=== PATIENT | female | born 1960 | race African-American/Black ===

== ENCOUNTER 2019-10-26 02:47 | Inpatient (IN) | payer MEDICARE, OTHER ==
[~2019-10-26] VITALS: Ht 160 cm; Wt 62.6 kg
[2019-10-26] VITALS (20 sets, daily range): BP systolic 58–176; BP diastolic 47–91
[2019-10-26] MEDS ORDERED: DEXTROSE 50% SYRINGE 50 ML IV STA ×3 (02:48→06:16)
--- OUTSIDE RECORDS SUMMARY | 2019-10-26 02:51 | XMS REPORT ---
[facility] Address Unknown Phone Unavailable Care Team Providers Care Clerical And Administrative Workers Name Role Phone Unavailable Unavailable Payers Payer Name Policy Type Policy Number Effective Date Expiration Date Problems This patient has no known problems. Allergies, Adverse Reactions, Alerts Allergy Name Allergy Type Status Severity Reaction(s) Onset Date Inactive Date Treating Clinician Comments magdi DA Active U 2017-11-30 00:00:00 Medications This patient has no known medications. Results Test Description Test Time Test Comments Text Results Atomic Results Result Comments GLUBED 2019-09-30 12:38:00 GLUBED (test code=GLUBED) 132 MG/DL 70-110 Performed by certified wireline field operator at [facility] [id number] 08:26:00* Test Item Value Reference Range Comments GLUBED (test code=GLUBED) 108 MG/DL 70-110 Performed by certified wireline field operator at [facility] ACUTE HEPATITIS [id number] 07:13:00* Test Item Value Reference Range Comments AB HEPATITIS A IGM (test code=HAVMAB) NON REACTIVE INDEX NON REACT. AG HEPATITIS B SURFACE (test code=HBSAG) NON REACTIVE INDEX NonReactive AB HEPATITIS B CORE IGM (test code=HBCMAB) NON REACTIVE INDEX NON REACT. AB HEPATITIS C (test code=HCVAB) NON REACTIVE INDEX NON REACT. AB HEPATITIS B [id number] 07:13:00* Test Item Value Reference Range Comments AB HEPATITIS B SURFACE (test code=HBSAB) 84.6 mIU/mL Immunity>9.9 Status of Immunity Anti-HBs Level Inconsistent with Immunity 0.0 - 9.9Consistent with Immunity >9.9[facility]formed At: [facility] [place], [place] [id number] Kyle L MD Ph:[phone] [id number] 05:59:00* Test Item Value Reference Range Comments GLUBED (test code=GLUBED) 115 MG/DL 70-110 Performed by certified wireline field operator at [facility] [id number] 00:24:00* Test Item Value Reference Range Comments GLUBED (test code=GLUBED) 146 MG/DL 70-110 Performed by certified wireline field operator at [facility] [id number] 21:35:00* Test Item Value Reference Range Comments GLUBED (test code=GLUBED) 216 MG/DL 70-110 Performed by certified wireline field operator at [facility] [id number] 17:11:00* Test Item Value Reference Range Comments GLUBED (test code=GLUBED) 163 MG/DL 70-110 Performed by certified wireline field operator at [facility] [id number] 15:08:00* Test Item Value Reference Range Comments GLUBED (test code=GLUBED) 137 MG/DL 70-110 Performed by certified wireline field operator at [facility] TOTAL IRON BINDING [id number] 11:57:00* Test Item Value Reference Range Comments SERUM IRON (test code=IRON) 60 mcg/dL 35-150 TOTAL IRON BINDING CAPACITY (test code=TIBC) 158 mcg/dL 260-445 UIBC (test code=UIBC) 98 mcg/dL IRON SATURATION (test code=FESAT) 38.0 % 14-34 VITAMIN [id number] 11:57:00* Test Item Value Reference Range Comments VITAMIN B12 (test code=VITB12) 1705 pg/mL 193-986 [id number] 11:57:00* Test Item Value Reference Range Comments FERRITIN (test code=THOM) 1034.7 ng/mL 11.0-306.8 [id number] 11:44:00* Test Item Value Reference Range Comments GLUBED (test code=GLUBED) 131 MG/DL 70-110 Performed by certified wireline field operator at [facility] ACUTE HEPATITIS [id number] 10:12:00* Test Item Value Reference Range Comments AB HEPATITIS A IGM (test code=HAVMAB) NON REACTIVE INDEX NON REACT. AG HEPATITIS B SURFACE (test code=HBSAG) NON REACTIVE INDEX NonReactive AB HEPATITIS B CORE IGM (test code=HBCMAB) NON REACTIVE INDEX NON REACT. AB HEPATITIS C (test code=HCVAB) NON REACTIVE INDEX NON REACT. AB HEPATITIS B [id number] 10:12:00* Test Item Value Reference Range Comments AB HEPATITIS B SURFACE (test code=HBSAB) ACUTE HEPATITIS [id number] 10:04:00* Test Item Value Reference Range Comments AB HEPATITIS A IGM (test code=HAVMAB) INDEX NON REACT. AG HEPATITIS B SURFACE (test code=HBSAG) NON REACTIVE INDEX NonReactive AB HEPATITIS B CORE IGM (test code=HBCMAB) INDEX NON REACT. AB HEPATITIS C (test code=HCVAB) NON REACTIVE INDEX NON REACT. AB HEPATITIS B [id number] 10:04:00* Test Item Value Reference Range Comments AB HEPATITIS B SURFACE (test code=HBSAB) ACUTE HEPATITIS [id number] 09:40:00* Test Item Value Reference Range Comments AB HEPATITIS A IGM (test code=HAVMAB) INDEX NON REACT. AG HEPATITIS B SURFACE (test code=HBSAG) NON REACTIVE INDEX NonReactive AB HEPATITIS B CORE IGM (test code=HBCMAB) INDEX NON REACT. AB HEPATITIS C (test code=HCVAB) INDEX NON REACT. AB HEPATITIS B [id number] 09:40:00* Test Item Value Reference Range Comments AB HEPATITIS B SURFACE (test code=HBSAB) BASIC METABOLIC [id number] 08:52:00* Test Item Value Reference Range Comments SODIUM (test code=NA) 140 mEq/L 134-147 POTASSIUM (test code=K) 3.4 mEq/L 3.4-5.0 CHLORIDE (test code=CL) 104 mEq/L 100-108 CARBON DIOXIDE (test code=CO2) 32 mEq/L 21-33 ANION GAP (test code=GAP) 7 0-20 GLUCOSE (test code=GLU) 138 mg/dL 70-110 BLOOD UREA NITROGEN (test code=BUN) 21 mg/dL 7-18 GLOMERULAR FILTRATION RATE (test code=GFR) 20.1 90-95 Units of measure=ml/min/1.73 m2 CREATININE (test code=CREAT) 2.9 mg/dL 0.6-1.3 CALCIUM (test code=CA) 8.4 mg/dL 8.0-10.5 [id number] 08:52:00* Test Item Value Reference Range Comments PHOSPHOROUS (test code=PHOS) 0.6 MG/DL 2.5-4.9 [id number] 08:28:00* Test Item Value Reference Range Comments GLUBED (test code=GLUBED) 219 MG/DL 70-110 Performed by certified wireline field operator at [facility] CBC W/AUTO [id number] 08:22:00* Test Item Value Reference Range Comments WHITE BLOOD CELL (test code=WBC) 6.69 x10 3/uL 4.5-11.0 RED BLOOD CELL (test code=RBC) 2.77 x10 6/uL 3.54-5.02 HEMOGLOBIN (test code=HGB) 8.6 g/dL 11.0-15.0 HEMATOCRIT (test code=HCT) 26.8 % 33.0-45.0 MEAN CELL VOLUME (test code=MCV) 96.8 fL 81.0-99.0 MEAN CELL HGB (test code=MCH) 31.0 pg 27.0-33.0 MEAN CELL HGB CONCETRATION (test code=MCHC) 32.1 g/dL 33.0-37.0 RED CELL DISTRIBUTION WIDTH CV (test code=RDW) 20.6 % 11.5-14.5 RED CELL DISTRIBUTION WIDTH SD (test code=RDW-SD) 71.2 fL 37.0-54.0 PLATELET COUNT (test code=PLT) 287 x10 3/uL 150-400 MEAN PLATELET VOLUME (test code=MPV) 9.6 fL 7.0-9.0 NEUTROPHIL % (test code=NT%) 79.5 % 56.0-77.0 IMMATURE GRANULOCYTE % (test code=IG%) 0.9 % 0.0-2.0 LYMPHOCYTE % (test code=LY%) 8.7 % 14.0-32.0 MONOCYTE % (test code=MO%) 9.0 % 4.8-9.0 EOSINOPHIL % (test code=EO%) 1.0 % 0.3-3.7 BASOPHIL % (test code=BA%) 0.9 % 0.0-2.0 NUCLEATED RBC % (test code=NRBC%) 0.0 % 0-0 NEUTROPHIL # (test code=NT#) 5.32 x10 3/uL 2.0-7.6 IMMATURE GRANULOCYTE # (test code=IG#) 0.06 x10 3/uL 0.00-0.03 LYMPHOCYTE # (test code=LY#) 0.58 x10 3/uL 1.0-3.8 MONOCYTE # (test code=MO#) 0.60 x10 3/uL 0.1-0.8 EOSINOPHIL # (test code=EO#) 0.07 x10 3/uL 0.0-0.2 BASOPHIL # (test code=BA#) 0.06 x10 3/uL 0.0-0.2 NUCLEATED RBC # (test code=NRBC#) 0.00 x10 3/uL 0.0-0.1 MANUAL DIFF REQUIRED (test code=MDIFF) NO [id number] 05:54:00* Test Item Value Reference Range Comments GLUBED (test code=GLUBED) 154 MG/DL 70-110 Performed by certified wireline field operator at [facility] [id number] 02:21:00* Test Item Value Reference Range Comments GLUBED (test code=GLUBED) 158 MG/DL 70-110 Performed by certified wireline field operator at [facility] [id number] 22:22:00* Test Item Value Reference Range Comments GLUBED (test code=GLUBED) 220 MG/DL 70-110 Performed by certified wireline field operator at [facility] [id number] 18:04:00* Test Item Value Reference Range Comments GLUBED (test code=GLUBED) 196 MG/DL 70-110 Performed by certified wireline field operator at [facility] [id number] 13:07:00* Test Item Value Reference Range Comments GLUBED (test code=GLUBED) 232 MG/DL 70-110 Performed by certified wireline field operator at [facility] [id number] 08:34:00* Test Item Value Reference Range Comments GLUBED (test code=GLUBED) 149 MG/DL 70-110 Performed by certified wireline field operator at [facility] [id number] 07:09:00* Test Item Value Reference Range Comments GLUBED (test code=GLUBED) 203 MG/DL 70-110 Performed by certified wireline field operator at [facility] [id number] 00:20:00* Test Item Value Reference Range Comments GLUBED (test code=GLUBED) 296 MG/DL 70-110 Performed by certified wireline field operator at [facility] [id number] 23:46:00* Test Item Value Reference Range Comments GLUBED (test code=GLUBED) 270 MG/DL 70-110 Performed by certified wireline field operator at [facility] [id number] 15:31:00* Test Item Value Reference Range Comments GLUBED (test code=GLUBED) 161 MG/DL 70-110 Performed by certified wireline field operator at [facility] [id number] 10:17:00* Test Item Value Reference Range Comments GLUBED (test code=GLUBED) 97 MG/DL 70-110 Performed by certified wireline field operator at [facility] [id number] 04:17:00* Test Item Value Reference Range Comments GLUBED (test code=GLUBED) 166 MG/DL 70-110 Performed by certified wireline field operator at [facility] [id number] 00:37:00* Test Item Value Reference Range Comments GLUBED (test code=GLUBED) 199 MG/DL 70-110 Performed by certified wireline field operator at [facility] [id number] 17:03:00* Test Item Value Reference Range Comments GLUBED (test code=GLUBED) 144 MG/DL 70-110 Performed by certified wireline field operator at [facility] [id number] 16:34:00* Test Item Value Reference Range Comments GLUBED (test code=GLUBED) 143 MG/DL 70-110 Performed by certified wireline field operator at [facility] [id number] 11:15:00* Test Item Value Reference Range Comments GLUBED (test code=GLUBED) 161 MG/DL 70-110 Performed by certified wireline field operator at [facility] [id number] 08:04:00* Test Item Value Reference Range Comments GLUBED (test code=GLUBED) 137 MG/DL 70-110 Performed by certified wireline field operator at [facility] [id number] 05:24:00* Test Item Value Reference Range Comments GLUBED (test code=GLUBED) 142 MG/DL 70-110 Performed by certified wireline field operator at [facility] [id number] 00:58:00* Test Item Value Reference Range Comments GLUBED (test code=GLUBED) 183 MG/DL 70-110 Performed by certified wireline field operator at [facility] [id number] 23:58:00* Test Item Value Reference Range Comments GLUBED (test code=GLUBED) 230 MG/DL 70-110 Performed by certified wireline field operator at [facility] [id number] 20:05:00* Test Item Value Reference Range Comments GLUBED (test code=GLUBED) 239 MG/DL 70-110 Performed by certified wireline field operator at [facility] [id number] 17:37:00* Test Item Value Reference Range Comments GLUBED (test code=GLUBED) 197 MG/DL 70-110 Performed by certified wireline field operator at [facility] [id number] 11:40:00* Test Item Value Reference Range Comments GLUBED (test code=GLUBED) 157 MG/DL 70-110 Performed by certified wireline field operator at [facility] [id number] 08:02:00* Test Item Value Reference Range Comments GLUBED (test code=GLUBED) 120 MG/DL 70-110 Performed by certified wireline field operator at [facility] [id number] 05:33:00* Test Item Value Reference Range Comments GLUBED (test code=GLUBED) 144 MG/DL 70-110 Performed by certified wireline field operator at [facility] [id number] 01:10:00* Test Item Value Reference Range Comments GLUBED (test code=GLUBED) 199 MG/DL 70-110 Performed by certified wireline field operator at [facility] [id number] 01:10:00* Test Item Value Reference Range Comments GLUBED (test code=GLUBED) 232 MG/DL 70-110 Performed by certified wireline field operator at [facility] [id number] 12:34:00* Test Item Value Reference Range Comments GLUBED (test code=GLUBED) 173 MG/DL 70-110 Performed by certified wireline field operator at [facility] BASIC METABOLIC [id number] 09:13:00* Test Item Value Reference Range Comments SODIUM (test code=NA) 138 mEq/L 134-147 POTASSIUM (test code=K) 3.2 mEq/L 3.4-5.0 CHLORIDE (test code=CL) 104 mEq/L 100-108 CARBON DIOXIDE (test code=CO2) 31 mEq/L 21-33 ANION GAP (test code=GAP) 6 0-20 GLUCOSE (test code=GLU) 165 mg/dL 70-110 BLOOD UREA NITROGEN (test code=BUN) 20 mg/dL 7-18 GLOMERULAR FILTRATION RATE (test code=GFR) 25.0 90-95 Units of measure=ml/min/1.73 m2 CREATININE (test code=CREAT) 2.4 mg/dL 0.6-1.3 CALCIUM (test code=CA) 8.2 mg/dL 8.0-10.5 [id number] 09:13:00* Test Item Value Reference Range Comments PHOSPHOROUS (test code=PHOS) 1.2 MG/DL 2.5-4.9 [id number] 09:10:00* Test Item Value Reference Range Comments GLUBED (test code=GLUBED) 193 MG/DL 70-110 Performed by certified wireline field operator at [facility] CBC W/AUTO [id number] 08:55:00* Test Item Value Reference Range Comments WHITE BLOOD CELL (test code=WBC) 4.50 x10 3/uL 4.5-11.0 RED BLOOD CELL (test code=RBC) 2.93 x10 6/uL 3.54-5.02 HEMOGLOBIN (test code=HGB) 8.9 g/dL 11.0-15.0 HEMATOCRIT (test code=HCT) 27.8 % 33.0-45.0 MEAN CELL VOLUME (test code=MCV) 94.9 fL 81.0-99.0 MEAN CELL HGB (test code=MCH) 30.4 pg 27.0-33.0 MEAN CELL HGB CONCETRATION (test code=MCHC) 32.0 g/dL 33.0-37.0 RED CELL DISTRIBUTION WIDTH CV (test code=RDW) 21.6 % 11.5-14.5 RED CELL DISTRIBUTION WIDTH SD (test code=RDW-SD) 72.2 fL 37.0-54.0 PLATELET COUNT (test code=PLT) 446 x10 3/uL 150-400 MEAN PLATELET VOLUME (test code=MPV) 9.6 fL 7.0-9.0 NEUTROPHIL % (test code=NT%) 80.0 % 56.0-77.0 IMMATURE GRANULOCYTE % (test code=IG%) 0.7 % 0.0-2.0 LYMPHOCYTE % (test code=LY%) 8.4 % 14.0-32.0 MONOCYTE % (test code=MO%) 8.9 % 4.8-9.0 EOSINOPHIL % (test code=EO%) 1.1 % 0.3-3.7 BASOPHIL % (test code=BA%) 0.9 % 0.0-2.0 NUCLEATED RBC % (test code=NRBC%) 0.0 % 0-0 NEUTROPHIL # (test code=NT#) 3.60 x10 3/uL 2.0-7.6 IMMATURE GRANULOCYTE # (test code=IG#) 0.03 x10 3/uL 0.00-0.03 LYMPHOCYTE # (test code=LY#) 0.38 x10 3/uL 1.0-3.8 MONOCYTE # (test code=MO#) 0.40 x10 3/uL 0.1-0.8 EOSINOPHIL # (test code=EO#) 0.05 x10 3/uL 0.0-0.2 BASOPHIL # (test code=BA#) 0.04 x10 3/uL 0.0-0.2 NUCLEATED RBC # (test code=NRBC#) 0.00 x10 3/uL 0.0-0.1 MANUAL DIFF REQUIRED (test code=MDIFF) NO [id number] 08:16:00* Test Item Value Reference Range Comments GLUBED (test code=GLUBED) 154 MG/DL 70-110 Performed by certified wireline field operator at [facility] [id number] 00:25:00* Test Item Value Reference Range Comments GLUBED (test code=GLUBED) 187 MG/DL 70-110 Performed by certified wireline field operator at [facility] [id number] 19:52:00* Test Item Value Reference Range Comments GLUBED (test code=GLUBED) 134 MG/DL 70-110 Performed by certified wireline field operator at [facility] [id number] 13:06:00* Test Item Value Reference Range Comments GLUBED (test code=GLUBED) 127 MG/DL 70-110 Performed by certified wireline field operator at [facility] [id number] 12:00:00* Test Item Value Reference Range Comments GLUBED (test code=GLUBED) 132 MG/DL 70-110 Performed by certified wireline field operator at [facility] [id number] 07:33:00* Test Item Value Reference Range Comments GLUBED (test code=GLUBED) 98 MG/DL 70-110 Performed by certified wireline field operator at [facility] [id number] 04:42:00* Test Item Value Reference Range Comments GLUBED (test code=GLUBED) 182 MG/DL 70-110 Performed by certified wireline field operator at [facility] [id number] 23:49:00* Test Item Value Reference Range Comments GLUBED (test code=GLUBED) 249 MG/DL 70-110 Performed by certified wireline field operator at [facility] [id number] 20:06:00* Test Item Value Reference Range Comments GLUBED (test code=GLUBED) 213 MG/DL 70-110 Performed by certified wireline field operator at [facility] [id number] 16:34:00* Test Item Value Reference Range Comments GLUBED (test code=GLUBED) 175 MG/DL 70-110 Performed by certified wireline field operator at [facility] BASIC METABOLIC [id number] 09:54:00* Test Item Value Reference Range Comments SODIUM (test code=NA) 137 mEq/L 134-147 POTASSIUM (test code=K) 3.1 mEq/L 3.4-5.0 CHLORIDE (test code=CL) 102 mEq/L 100-108 CARBON DIOXIDE (test code=CO2) 29 mEq/L 21-33 ANION GAP (test code=GAP) 9 0-20 GLUCOSE (test code=GLU) 158 mg/dL 70-110 BLOOD UREA NITROGEN (test code=BUN) 19 mg/dL 7-18 GLOMERULAR FILTRATION RATE (test code=GFR) 32.7 90-95 Units of measure=ml/min/1.73 m2 CREATININE (test code=CREAT) 1.9 mg/dL 0.6-1.3 CALCIUM (test code=CA) 7.9 mg/dL 8.0-10.5 BASIC METABOLIC [id number] 09:50:00* Test Item Value Reference Range Comments SODIUM (test code=NA) 137 mEq/L 134-147 POTASSIUM (test code=K) 3.1 mEq/L 3.4-5.0 CHLORIDE (test code=CL) 102 mEq/L 100-108 CARBON DIOXIDE (test code=CO2) 29 mEq/L 21-33 ANION GAP (test code=GAP) 9 0-20 GLUCOSE (test code=GLU) 158 mg/dL 70-110 BLOOD UREA NITROGEN (test code=BUN) 19 mg/dL 7-18 GLOMERULAR FILTRATION RATE (test code=GFR) 90-95 CREATININE (test code=CREAT) mg/dL 0.6-1.3 CALCIUM (test code=CA) 7.9 mg/dL 8.0-10.5 CBC W/AUTO [id number] 09:47:00* Test Item Value Reference Range Comments WHITE BLOOD CELL (test code=WBC) 5.25 x10 3/uL 4.5-11.0 RED BLOOD CELL (test code=RBC) 2.98 x10 6/uL 3.54-5.02 HEMOGLOBIN (test code=HGB) 8.9 g/dL 11.0-15.0 HEMATOCRIT (test code=HCT) 27.9 % 33.0-45.0 MEAN CELL VOLUME (test code=MCV) 93.6 fL 81.0-99.0 MEAN CELL HGB (test code=MCH) 29.9 pg 27.0-33.0 MEAN CELL HGB CONCETRATION (test code=MCHC) 31.9 g/dL 33.0-37.0 RED CELL DISTRIBUTION WIDTH CV (test code=RDW) 21.0 % 11.5-14.5 RED CELL DISTRIBUTION WIDTH SD (test code=RDW-SD) 68.8 fL 37.0-54.0 PLATELET COUNT (test code=PLT) 434 x10 3/uL 150-400 MEAN PLATELET VOLUME (test code=MPV) 9.8 fL 7.0-9.0 NEUTROPHIL % (test code=NT%) 84.9 % 56.0-77.0 IMMATURE GRANULOCYTE % (test code=IG%) 0.8 % 0.0-2.0 LYMPHOCYTE % (test code=LY%) 7.6 % 14.0-32.0 MONOCYTE % (test code=MO%) 5.5 % 4.8-9.0 EOSINOPHIL % (test code=EO%) 0.6 % 0.3-3.7 BASOPHIL % (test code=BA%) 0.6 % 0.0-2.0 NUCLEATED RBC % (test code=NRBC%) 0.0 % 0-0 NEUTROPHIL # (test code=NT#) 4.46 x10 3/uL 2.0-7.6 IMMATURE GRANULOCYTE # (test code=IG#) 0.04 x10 3/uL 0.00-0.03 LYMPHOCYTE # (test code=LY#) 0.40 x10 3/uL 1.0-3.8 MONOCYTE # (test code=MO#) 0.29 x10 3/uL 0.1-0.8 EOSINOPHIL # (test code=EO#) 0.03 x10 3/uL 0.0-0.2 BASOPHIL # (test code=BA#) 0.03 x10 3/uL 0.0-0.2 NUCLEATED RBC # (test code=NRBC#) 0.00 x10 3/uL 0.0-0.1 MANUAL DIFF REQUIRED (test code=MDIFF) NO [id number] 08:34:00* Test Item Value Reference Range Comments GLUBED (test code=GLUBED) 116 MG/DL 70-110 Performed by certified wireline field operator at [facility] [id number] 07:43:00* Test Item Value Reference Range Comments GLUBED (test code=GLUBED) 32 MG/DL 70-110 Performed by certified wireline field operator at [facility] [id number] 07:43:00* Test Item Value Reference Range Comments GLUBED (test code=GLUBED) 65 MG/DL 70-110 Performed by certified wireline field operator at [facility] [id number] 07:43:00* Test Item Value Reference Range Comments GLUBED (test code=GLUBED) 65 MG/DL 70-110 Performed by certified wireline field operator at [facility] [id number] 07:40:00* Test Item Value Reference Range Comments GLUBED (test code=GLUBED) 31 MG/DL 70-110 Performed by certified wireline field operator at [facility] [id number] 05:31:00* Test Item Value Reference Range Comments GLUBED (test code=GLUBED) 159 MG/DL 70-110 Performed by certified wireline field operator at [facility] [id number] 00:49:00* Test Item Value Reference Range Comments GLUBED (test code=GLUBED) 175 MG/DL 70-110 Performed by certified wireline field operator at [facility] [id number] 19:41:00* Test Item Value Reference Range Comments GLUBED (test code=GLUBED) 147 MG/DL 70-110 Performed by certified wireline field operator at [facility] [id number] 16:50:00* Test Item Value Reference Range Comments GLUBED (test code=GLUBED) 100 MG/DL 70-110 Performed by certified wireline field operator at [facility] [id number] 13:06:00* Test Item Value Reference Range Comments GLUBED (test code=GLUBED) 89 MG/DL 70-110 Performed by certified wireline field operator at [facility] [id number] 08:11:00* Test Item Value Reference Range Comments GLUBED (test code=GLUBED) 116 MG/DL 70-110 Performed by certified wireline field operator at [facility] [id number] 04:52:00* Test Item Value Reference Range Comments GLUBED (test code=GLUBED) 138 MG/DL 70-110 Performed by certified wireline field operator at [facility] [id number] 03:18:00* Test Item Value Reference Range Comments GLUBED (test code=GLUBED) 128 MG/DL 70-110 Performed by certified wireline field operator at [facility] [id number] 03:18:00* Test Item Value Reference Range Comments GLUBED (test code=GLUBED) 182 MG/DL 70-110 Performed by certified wireline field operator at [facility] [id number] 21:27:00* Test Item Value Reference Range Comments GLUBED (test code=GLUBED) 205 MG/DL 70-110 Performed by certified wireline field operator at [facility] [id number] 17:00:00* Test Item Value Reference Range Comments GLUBED (test code=GLUBED) 143 MG/DL 70-110 Performed by certified wireline field operator at [facility] [id number] 11:38:00* Test Item Value Reference Range Comments GLUBED (test code=GLUBED) 56 MG/DL 70-110 Performed by certified wireline field operator at [facility] [id number] 09:15:00* Test Item Value Reference Range Comments GLUBED (test code=GLUBED) 132 MG/DL 70-110 Performed by certified wireline field operator at [facility] [id number] 05:14:00* Test Item Value Reference Range Comments GLUBED (test code=GLUBED) 88 MG/DL 70-110 Performed by certified wireline field operator at [facility] BASIC METABOLIC [id number] 16:08:00* Test Item Value Reference Range Comments SODIUM (test code=NA) 137 mEq/L 134-147 POTASSIUM (test code=K) 4.1 mEq/L 3.4-5.0 CHLORIDE (test code=CL) 101 mEq/L 100-108 CARBON DIOXIDE (test code=CO2) 29 mEq/L 21-33 ANION GAP (test code=GAP) 11 0-20 GLUCOSE (test code=GLU) 133 mg/dL 70-110 BLOOD UREA NITROGEN (test code=BUN) 48 mg/dL 7-18 GLOMERULAR FILTRATION RATE (test code=GFR) 27.6 90-95 Units of measure=ml/min/1.73 m2 CREATININE (test code=CREAT) 2.2 mg/dL 0.6-1.3 CALCIUM (test code=CA) 7.3 mg/dL 8.0-10.5 [id number] 16:08:00* Test Item Value Reference Range Comments PHOSPHOROUS (test code=PHOS) 1.4 MG/DL 2.5-4.9 [id number] 16:08:00* Test Item Value Reference Range Comments MAGNESIUM (test code=MAG) 1.90 mg/dL 1.8-2.4 CALCIUM [id number] 16:08:00* Test Item Value Reference Range Comments CALCIUM IONIZED (test code=YASMIN) 1.18 MMOL/L 1.12-1.32 [id number] 16:08:00* Test Item Value Reference Range Comments GASTRIN (test code=BRIAN) 90 pg/mL 0-115 Siemens Immulite 2000 Immunochemiluminometric assay (ICMA)Values obtained with different assay methods or kits cannotbe used interchangeably. Results cannot be interpreted asabsolute evidence of the pre sence or absence of malignantdisease.Performed At: [facility] [id number] Sanjai MD Ph:[phone] [id number] 12:21:00* Test Item Value Reference Range Comments GLUBED (test code=GLUBED) 128 MG/DL 70-110 Performed by certified wireline field operator at [facility] BASIC METABOLIC [id number] 09:15:00* Test Item Value Reference Range Comments SODIUM (test code=NA) 134 mEq/L 134-147 POTASSIUM (test code=K) 3.6 mEq/L 3.4-5.0 CHLORIDE (test code=CL) 99 mEq/L 100-108 CARBON DIOXIDE (test code=CO2) 30 mEq/L 21-33 ANION GAP (test code=GAP) 9 0-20 GLUCOSE (test code=GLU) 118 mg/dL 70-110 BLOOD UREA NITROGEN (test code=BUN) 34 mg/dL 7-18 GLOMERULAR FILTRATION RATE (test code=GFR) 29.2 90-95 Units of measure=ml/min/1.73 m2 CREATININE (test code=CREAT) 2.1 mg/dL 0.6-1.3 CALCIUM (test code=CA) 7.4 mg/dL 8.0-10.5 CBC W/AUTO [id number] 09:07:00* Test Item Value Reference Range Comments WHITE BLOOD CELL (test code=WBC) 8.75 x10 3/uL 4.5-11.0 RED BLOOD CELL (test code=RBC) 2.69 x10 6/uL 3.54-5.02 HEMOGLOBIN (test code=HGB) 8.0 g/dL 11.0-15.0 HEMATOCRIT (test code=HCT) 23.8 % 33.0-45.0 MEAN CELL VOLUME (test code=MCV) 88.5 fL 81.0-99.0 MEAN CELL HGB (test code=MCH) 29.7 pg 27.0-33.0 MEAN CELL HGB CONCETRATION (test code=MCHC) 33.6 g/dL 33.0-37.0 RED CELL DISTRIBUTION WIDTH CV (test code=RDW) 19.7 % 11.5-14.5 RED CELL DISTRIBUTION WIDTH SD (test code=RDW-SD) 47.8 fL 37.0-54.0 PLATELET COUNT (test code=PLT) 245 x10 3/uL 150-400 MEAN PLATELET VOLUME (test code=MPV) 11.0 fL 7.0-9.0 NEUTROPHIL % (test code=NT%) 87.4 % 56.0-77.0 IMMATURE GRANULOCYTE % (test code=IG%) 1.1 % 0.0-2.0 LYMPHOCYTE % (test code=LY%) 4.9 % 14.0-32.0 MONOCYTE % (test code=MO%) 5.3 % 4.8-9.0 EOSINOPHIL % (test code=EO%) 1.1 % 0.3-3.7 BASOPHIL % (test code=BA%) 0.2 % 0.0-2.0 NUCLEATED RBC % (test code=NRBC%) 0.0 % 0-0 NEUTROPHIL # (test code=NT#) 7.64 x10 3/uL 2.0-7.6 IMMATURE GRANULOCYTE # (test code=IG#) 0.10 x10 3/uL 0.00-0.03 LYMPHOCYTE # (test code=LY#) 0.43 x10 3/uL 1.0-3.8 MONOCYTE # (test code=MO#) 0.46 x10 3/uL 0.1-0.8 EOSINOPHIL # (test code=EO#) 0.10 x10 3/uL 0.0-0.2 BASOPHIL # (test code=BA#) 0.02 x10 3/uL 0.0-0.2 NUCLEATED RBC # (test code=NRBC#) 0.00 x10 3/uL 0.0-0.1 MANUAL DIFF REQUIRED (test code=MDIFF) NO [id number] 02:24:00* Test Item Value Reference Range Comments GLUBED (test code=GLUBED) 137 MG/DL 70-110 Performed by certified wireline field operator at [facility] [id number] 17:46:00* Test Item Value Reference Range Comments GLUBED (test code=GLUBED) 138 MG/DL 70-110 Performed by certified wireline field operator at [facility] [id number] 14:14:00* Test Item Value Reference Range Comments GLUBED (test code=GLUBED) 84 MG/DL 70-110 Performed by certified wireline field operator at [facility] [id number] 14:14:00* Test Item Value Reference Range Comments GLUBED (test code=GLUBED) 40 MG/DL 70-110 Performed by certified wireline field operator at [facility] [id number] 12:45:00* Test Item Value Reference Range Comments GLUBED (test code=GLUBED) 144 MG/DL 70-110 Performed by certified wireline field operator at [facility] SURGICAL [id number] 11:43:00 RUN DATE: 09/18/19 [facility] *LIVE* PAGE 1 RUN TIME: 1143 Specimen Inqui ry RUN USER: INTERFACE PATIENT: ERINN JUNE ACCT #: [id number] LOC: [facility] U #: [id number] AGE/SX: 59/F [place] [facility] DR: Kayley Dickens MD : 60 BED: 1 DIS: STATUS: ADM IN TLOC: SPEC #: [id number] RECD: 09/08/19-4 STATUS: ALECIA MORGAN #: [id number] [place]: 09/08/19 [facility] DR: Kayley Dickens MD ENTERED: 09/14/19 SP TYPE: SURG SPEC OTHR DR: Rosa Debra logan or Family Physician Self Referred Joanne flanagan,Reginald Davis MD, MD, Asif MD Lo ya, Altaf MD Nassif W right,Rachael Dave, Ann Eubanks MD, MDORDERED: LEVEL 4 CODES: [id number] - STOMACH, NOS [id number] - SMALL IN TESTINE COPIES TO: No Primary or Family Physician Self Referred Franklin Ryder MD [address] [place] [address] Reginald Porter MD [address] [place] [address] Vic Marin MD [address] [place] [address] [place], [place] [id number] [place] [address] [place] [address] [email or web address] Rachael Lane MD [address] [place] [address] [phone] CONTINUED ON NEXT PAGE -------- ----RUN DATE: 09/18/19 [facility] *LIVE* PAGE 2 RUN TIME: 1143 Specimen Inquiry RUN USER: INTERFACE SPEC #: [id number] PATIENT: ERINN JUNE #[id number] (Continued) COPIES TO: (Continued) Kayley Lundberg i, MD [address] [place], [place] [id number] López Dave MD [address] [address] Ann Fournier MD [address] [place], [place] [id number] PROCEDURES: LEVEL 4 (Incomplete) TISSUES: 1. SMALL INTESTINE, NOS - Small intestine, duodenum, bx. 2. STOMACH, NOS - Stomach, bx. FINAL DIAGNOSIS Small intestine, duodenum, bx.: Mild chronic inflammation, no celiac disease identified. Stomach, bx.: Mild chronic gastritis, no Helicobacter organisms identified. GROSS AND MICROSCOPIC GROSS EXAMINA TION: Received is/are the specimen/s designated with the appropriate dim ensions and block designation: 1. Small intestine, duodenum, bx.: 2 segments of pink-killian tissue, measuring up to 0.3 cm. in grea test dimension each (A). 2. Stomach, bx.: 3 segmen ts of pink-killian tissue, measuring up to 0.4 cm. in greatest dimension each (B) . MICROSCOPIC EXAMINATION: Sectio ns of the "Small intestine, duodenum, bx." reveal changes of mild chronic in flammation. The small intestine contains villous processes of normal length and diameter. A mild inflammatory infiltrate is present in the underlyi ng stroma. The epithelium contains a normal complement of lymphoid cells. N o definite evidence of celiac sprue is identified in these sections. The imm unostain for CD3 does not show an increased number of lymphoid cells in the e pithelium. (When special stains have been reviewed, the appropriate positive/ negative controls have been reviewed and are appropriately positive/negativ e). CONTINUED ON NEXT PAGE RUN DATE: 09/18/19 [facility] *GENI HADLEY* PAGE 3 RUN TIME: 1143 Speci men Inquiry RUN USER: INTERFACE SPEC #: [id number] PATIENT: EZRA BOB,TEVETA #[id number] (Continued) GROSS AND MICROSCOPIC (Continued) Sections of the "Stomach, bx." reveal changes of mild chronic gastritis. The lamina propria contains a mild inflammatory i nfiltrate. The Alcian blue/PAS stain does not show goblet cell metaplasia . The immunostain for Helicobacter organisms is negative. (When special sta ins have been reviewed, the appropriate positive/negative controls talbot ve been reviewed and are appropriately positive/negative). POST-OP DIAGNOSIS Duodenal ulcers, hemorrhagic brian ritis, dysphagia PRE-OP DIAGNOSIS Dysphagia Signed SIGNAT URE ON FILE YaorodneyLeslie castillo MD 09/18/19 1143 -- END OF REPO RT [id number] 07:17:00* Test Item Value Reference Range Comments GLUBED (test code=GLUBED) 125 MG/DL 70-110 Performed by certified wireline field operator at [facility] [id number] 06:50:00* Test Item Value Reference Range Comments GLUBED (test code=GLUBED) 128 MG/DL 70-110 Performed by certified wireline field operator at [facility] [id number] 06:49:00* Test Item Value Reference Range Comments GLUBED (test code=GLUBED) 106 MG/DL 70-110 Performed by certified wireline field operator at [facility] [id number] 06:49:00* Test Item Value Reference Range Comments GLUBED (test code=GLUBED) 129 MG/DL 70-110 Performed by certified wireline field operator at [facility] [id number] 06:49:00* Test Item Value Reference Range Comments GLUBED (test code=GLUBED) 58 MG/DL 70-110 Performed by certified wireline field operator at [facility] [id number] 01:07:00* Test Item Value Reference Range Comments GLUBED (test code=GLUBED) 134 MG/DL 70-110 Performed by certified wireline field operator at [facility] HGB [id number] 16:29:00* Test Item Value Reference Range Comments HEMOGLOBIN (test code=HGB) 7.8 g/dL 11.0-15.0 HEMATOCRIT (test code=HCT) 22.8 % 33.0-45.0 [id number] 16:08:00* Test Item Value Reference Range Comments HAPTOGLOBIN (test code=HAPT) 67 mg/dL 33-346 Please note reference interval changePerformed At: [facility] [id number] Sanjai MD Ph:[phone] - XR CHEST 1 [id number] 10:51:00 FAX: Tamara Lemons NP [phone] Cammal: St: [facility] FAX: Kayley Velasco MD [phone] Name: ERINN JUNE [facility] : 1960 Age/S: 59/F [address] [place] [address] Unit #: [id number] Loc: G.M328 [place] [address] Phys: Tamara Lemons NP Acct: [id number] Dis Date: Status: ADM IN PHONE #: [phone] Exam Date: 09/17/2019523 FAX #: [phone] Reason: FOLLOW UPP EXAMS: CPT CODE: [id number] XR CHEST 1 V 15245 PROCEDURE: CHEST SINGLE VIEW INDICATION: FOLLOW UPP; symptoms not specified COMPARISON: Multiple priors, most recent 09/15/2019 FINDINGS: TUBES AND LINES: Nasogastric tube identified to the level of mid stomach, tip beyond the [id number]. Right central venous catheter tip at the level of central SVC. Multiple EKG leads overlie the chest. CHEST: AP portable chest obtained semiupright with patient rotated to the left. Ill-defined opacities in the left base with obscuration of the hemidiaphragm. Few bandlike opacities compatible with subsegmental atelectasis. Faint indistinct opacity in the lateral right base. The hemidiaphragm remains sharp. No pneumothorax. The cardiomediastinal silhouette is stable allowing for rotation. IMPRESSION: 1. Increased left basilar opacification, left lower lobe airspace disease versus atelectasis. Pneumonia/pneumonitis in the differential. 2. Small left pleural effusion suspected. SL: [id number] at 1051 Reported and signed by: Rogers Gamble M.D. CC: Tamara de la cruz [employer]; Kayley Dickens MD Technologist: Eduardo Washington RT(R) Trnscrd Date/Time/By: 09/17/2019 (8911) : By: EranKWL Orig Print D/T: S: 09/17/2019 (3944) PAGE 1 Signed Report CBC W/AUTO [id number] 08:10:00* Test Item Value Reference Range Comments WHITE BLOOD CELL (test code=WBC) 9.04 x10 3/uL 4.5-11.0 RED BLOOD CELL (test code=RBC) 2.49 x10 6/uL 3.54-5.02 HEMOGLOBIN (test code=HGB) 7.4 g/dL 11.0-15.0 HEMATOCRIT (test code=HCT) 22.6 % 33.0-45.0 MEAN CELL VOLUME (test code=MCV) 90.8 fL 81.0-99.0 MEAN CELL HGB (test code=MCH) 29.7 pg 27.0-33.0 MEAN CELL HGB CONCETRATION (test code=MCHC) 32.7 g/dL 33.0-37.0 RED CELL DISTRIBUTION WIDTH CV (test code=RDW) 17.6 % 11.5-14.5 RED CELL DISTRIBUTION WIDTH SD (test code=RDW-SD) 50.1 fL 37.0-54.0 PLATELET COUNT (test code=PLT) 134 x10 3/uL 150-400 MEAN PLATELET VOLUME (test code=MPV) 11.9 fL 7.0-9.0 NEUTROPHIL % (test code=NT%) 87.5 % 56.0-77.0 IMMATURE GRANULOCYTE % (test code=IG%) 1.2 % 0.0-2.0 LYMPHOCYTE % (test code=LY%) 4.9 % 14.0-32.0 MONOCYTE % (test code=MO%) 6.0 % 4.8-9.0 EOSINOPHIL % (test code=EO%) 0.2 % 0.3-3.7 BASOPHIL % (test code=BA%) 0.2 % 0.0-2.0 NUCLEATED RBC % (test code=NRBC%) 0.0 % 0-0 NEUTROPHIL # (test code=NT#) 7.91 x10 3/uL 2.0-7.6 IMMATURE GRANULOCYTE # (test code=IG#) 0.11 x10 3/uL 0.00-0.03 LYMPHOCYTE # (test code=LY#) 0.44 x10 3/uL 1.0-3.8 MONOCYTE # (test code=MO#) 0.54 x10 3/uL 0.1-0.8 EOSINOPHIL # (test code=EO#) 0.02 x10 3/uL 0.0-0.2 BASOPHIL # (test code=BA#) 0.02 x10 3/uL 0.0-0.2 NUCLEATED RBC # (test code=NRBC#) 0.00 x10 3/uL 0.0-0.1 MANUAL DIFF REQUIRED (test code=MDIFF) NO BASIC METABOLIC [id number] 07:43:00* Test Item Value Reference Range Comments SODIUM (test code=NA) 137 mEq/L 134-147 POTASSIUM (test code=K) 4.1 mEq/L 3.4-5.0 CHLORIDE (test code=CL) 101 mEq/L 100-108 CARBON DIOXIDE (test code=CO2) 29 mEq/L 21-33 ANION GAP (test code=GAP) 11 0-20 GLUCOSE (test code=GLU) 133 mg/dL 70-110 BLOOD UREA NITROGEN (test code=BUN) 48 mg/dL 7-18 GLOMERULAR FILTRATION RATE (test code=GFR) 27.6 90-95 Units of measure=ml/min/1.73 m2 CREATININE (test code=CREAT) 2.2 mg/dL 0.6-1.3 CALCIUM (test code=CA) 7.3 mg/dL 8.0-10.5 [id number] 07:43:00* Test Item Value Reference Range Comments PHOSPHOROUS (test code=PHOS) 1.4 MG/DL 2.5-4.9 [id number] 07:43:00* Test Item Value Reference Range Comments MAGNESIUM (test code=MAG) 1.90 mg/dL 1.8-2.4 CALCIUM [id number] 07:43:00* Test Item Value Reference Range Comments CALCIUM IONIZED (test code=YASMIN) 1.18 MMOL/L 1.12-1.32 [id number] 07:43:00* Test Item Value Reference Range Comments GASTRIN (test code=BRIAN) BASIC METABOLIC [id number] 07:39:00* Test Item Value Reference Range Comments SODIUM (test code=NA) 137 mEq/L 134-147 POTASSIUM (test code=K) 4.1 mEq/L 3.4-5.0 CHLORIDE (test code=CL) 101 mEq/L 100-108 CARBON DIOXIDE (test code=CO2) 29 mEq/L 21-33 ANION GAP (test code=GAP) 11 0-20 GLUCOSE (test code=GLU) 133 mg/dL 70-110 BLOOD UREA NITROGEN (test code=BUN) 48 mg/dL 7-18 GLOMERULAR FILTRATION RATE (test code=GFR) 90-95 CREATININE (test code=CREAT) mg/dL 0.6-1.3 CALCIUM (test code=CA) 7.3 mg/dL 8.0-10.5 [id number] 07:39:00* Test Item Value Reference Range Comments PHOSPHOROUS (test code=PHOS) MG/DL 2.5-4.9 [id number] 07:39:00* Test Item Value Reference Range Comments MAGNESIUM (test code=MAG) mg/dL 1.8-2.4 CALCIUM [id number] 07:39:00* Test Item Value Reference Range Comments CALCIUM IONIZED (test code=YASMIN) 1.18 MMOL/L 1.12-1.32 [id number] 07:39:00* Test Item Value Reference Range Comments GASTRIN (test code=BRIAN) BASIC METABOLIC [id number] 07:32:00* Test Item Value Reference Range Comments SODIUM (test code=NA) mEq/L 134-147 POTASSIUM (test code=K) mEq/L 3.4-5.0 CHLORIDE (test code=CL) mEq/L 100-108 CARBON DIOXIDE (test code=CO2) mEq/L 21-33 ANION GAP (test code=GAP) 0-20 GLUCOSE (test code=GLU) mg/dL 70-110 BLOOD UREA NITROGEN (test code=BUN) mg/dL 7-18 GLOMERULAR FILTRATION RATE (test code=GFR) 90-95 CREATININE (test code=CREAT) mg/dL 0.6-1.3 CALCIUM (test code=CA) mg/dL 8.0-10.5 [id number] 07:32:00* Test Item Value Reference Range Comments PHOSPHOROUS (test code=PHOS) MG/DL 2.5-4.9 [id number] 07:32:00* Test Item Value Reference Range Comments MAGNESIUM (test code=MAG) mg/dL 1.8-2.4 CALCIUM [id number] 07:32:00* Test Item Value Reference Range Comments CALCIUM IONIZED (test code=YASMIN) 1.18 MMOL/L 1.12-1.32 [id number] 07:32:00* Test Item Value Reference Range Comments GASTRIN (test code=BRIAN) [id number] 23:43:00* Test Item Value Reference Range Comments GLUBED (test code=GLUBED) 61 MG/DL 70-110 Performed by certified wireline field operator at [facility] HGB [id number] 23:06:00* Test Item Value Reference Range Comments HEMOGLOBIN (test code=HGB) 7.6 g/dL 11.0-15.0 HEMATOCRIT (test code=HCT) 22.4 % 33.0-45.0 [id number] 17:46:00* Test Item Value Reference Range Comments GLUBED (test code=GLUBED) 91 MG/DL 70-110 Performed by certified wireline field operator at [facility] HGB [id number] 16:03:00* Test Item Value Reference Range Comments HEMOGLOBIN (test code=HGB) 7.4 g/dL 11.0-15.0 HEMATOCRIT (test code=HCT) 22.0 % 33.0-45.0 HGB [id number] 09:57:00* Test Item Value Reference Range Comments HEMOGLOBIN (test code=HGB) 7.7 g/dL 11.0-15.0 HEMATOCRIT (test code=HCT) 22.3 % 33.0-45.0 [id number] 06:45:00* Test Item Value Reference Range Comments GLUBED (test code=GLUBED) 87 MG/DL 70-110 Performed by certified wireline field operator at [facility] BASIC METABOLIC [id number] 06:07:00* Test Item Value Reference Range Comments SODIUM (test code=NA) 137 mEq/L 134-147 POTASSIUM (test code=K) 4.0 mEq/L 3.4-5.0 CHLORIDE (test code=CL) 102 mEq/L 100-108 CARBON DIOXIDE (test code=CO2) 30 mEq/L 21-33 ANION GAP (test code=GAP) 9 0-20 GLUCOSE (test code=GLU) 114 mg/dL 70-110 BLOOD UREA NITROGEN (test code=BUN) 44 mg/dL 7-18 GLOMERULAR FILTRATION RATE (test code=GFR) 34.8 90-95 Units of measure=ml/min/1.73 m2 CREATININE (test code=CREAT) 1.8 mg/dL 0.6-1.3 CALCIUM (test code=CA) 7.5 mg/dL 8.0-10.5 [id number] 06:07:00* Test Item Value Reference Range Comments PHOSPHOROUS (test code=PHOS) 1.1 MG/DL 2.5-4.9 [id number] 06:07:00* Test Item Value Reference Range Comments MAGNESIUM (test code=MAG) 1.50 mg/dL 1.8-2.4 CALCIUM [id number] 06:07:00* Test Item Value Reference Range Comments CALCIUM IONIZED (test code=YASMIN) 1.15 MMOL/L 1.12-1.32 BASIC METABOLIC [id number] 05:57:00* Test Item Value Reference Range Comments SODIUM (test code=NA) mEq/L 134-147 POTASSIUM (test code=K) mEq/L 3.4-5.0 CHLORIDE (test code=CL) mEq/L 100-108 CARBON DIOXIDE (test code=CO2) mEq/L 21-33 ANION GAP (test code=GAP) 0-20 GLUCOSE (test code=GLU) mg/dL 70-110 BLOOD UREA NITROGEN (test code=BUN) mg/dL 7-18 GLOMERULAR FILTRATION RATE (test code=GFR) 90-95 CREATININE (test code=CREAT) mg/dL 0.6-1.3 CALCIUM (test code=CA) mg/dL 8.0-10.5 [id number] 05:57:00* Test Item Value Reference Range Comments PHOSPHOROUS (test code=PHOS) MG/DL 2.5-4.9 [id number] 05:57:00* Test Item Value Reference Range Comments MAGNESIUM (test code=MAG) mg/dL 1.8-2.4 CALCIUM [id number] 05:57:00* Test Item Value Reference Range Comments CALCIUM IONIZED (test code=YASMIN) 1.15 MMOL/L 1.12-1.32 CBC W/AUTO [id number] 05:52:00* Test Item Value Reference Range Comments WHITE BLOOD CELL (test code=WBC) 7.22 x10 3/uL 4.5-11.0 RED BLOOD CELL (test code=RBC) 2.49 x10 6/uL 3.54-5.02 HEMOGLOBIN (test code=HGB) 7.4 g/dL 11.0-15.0 HEMATOCRIT (test code=HCT) 21.5 % 33.0-45.0 MEAN CELL VOLUME (test code=MCV) 86.3 fL 81.0-99.0 MEAN CELL HGB (test code=MCH) 29.7 pg 27.0-33.0 MEAN CELL HGB CONCETRATION (test code=MCHC) 34.4 g/dL 33.0-37.0 RED CELL DISTRIBUTION WIDTH CV (test code=RDW) 15.4 % 11.5-14.5 RED CELL DISTRIBUTION WIDTH SD (test code=RDW-SD) 44.6 fL 37.0-54.0 PLATELET COUNT (test code=PLT) 86 x10 3/uL 150-400 IMMATURE PLATELET FRACTION (test code=IPF) 3.5 % 0.9-11.2 MEAN PLATELET VOLUME (test code=MPV) 11.4 fL 7.0-9.0 NEUTROPHIL % (test code=NT%) 79.1 % 56.0-77.0 IMMATURE GRANULOCYTE % (test code=IG%) 1.4 % 0.0-2.0 LYMPHOCYTE % (test code=LY%) 8.4 % 14.0-32.0 MONOCYTE % (test code=MO%) 10.7 % 4.8-9.0 EOSINOPHIL % (test code=EO%) 0.1 % 0.3-3.7 BASOPHIL % (test code=BA%) 0.3 % 0.0-2.0 NUCLEATED RBC % (test code=NRBC%) 0.0 % 0-0 NEUTROPHIL # (test code=NT#) 5.71 x10 3/uL 2.0-7.6 IMMATURE GRANULOCYTE # (test code=IG#) 0.10 x10 3/uL 0.00-0.03 LYMPHOCYTE # (test code=LY#) 0.61 x10 3/uL 1.0-3.8 MONOCYTE # (test code=MO#) 0.77 x10 3/uL 0.1-0.8 EOSINOPHIL # (test code=EO#) 0.01 x10 3/uL 0.0-0.2 BASOPHIL # (test code=BA#) 0.02 x10 3/uL 0.0-0.2 NUCLEATED RBC # (test code=NRBC#) 0.00 x10 3/uL 0.0-0.1 MANUAL DIFF REQUIRED (test code=MDIFF) NO [id number] 00:28:00* Test Item Value Reference Range Comments GLUBED (test code=GLUBED) 119 MG/DL 70-110 Performed by certified wireline field operator at [facility] HGB [id number] 22:51:00* Test Item Value Reference Range Comments HEMOGLOBIN (test code=HGB) 7.4 g/dL 11.0-15.0 HEMATOCRIT (test code=HCT) 21.2 % 33.0-45.0 [id number] 18:50:00* Test Item Value Reference Range Comments GLUBED (test code=GLUBED) 151 MG/DL 70-110 Performed by certified wireline field operator at [facility] HGB [id number] 16:15:00* Test Item Value Reference Range Comments HEMOGLOBIN (test code=HGB) 8.7 g/dL 11.0-15.0 HEMATOCRIT (test code=HCT) 25.2 % 33.0-45.0 - CTA ABD PEL W [id number] 14:58:00 Name: ERINN JUNE [facility] : 1960 Age/S: 59 / F [address] [place] [address] Unit #: [id number] Loc: [place] [address] Phys: Oneil Hernandes MD Acct: [id number] Dis Date: Status: ADM IN PHONE #: [phone] Exam Date: 09/15/2019 1429 FAX #: [phone] Reason: GI Bleed, look for source of bleeding, she is e EXAMS: CPT CODE: [id number] CTA ABD PEL W CONT [id number] CTA abdomen pelvis: Multiplanar helical imaging acquired from the diaphragm through the symphysis pubis before and after IV injection 100 cc Isovue 370. Three-dimensional MIPS reconstruction images of the abdominal aorta and branch vessels were obtained following contrast. CT imaging performed at this location utilizes radiation dose optimization techniques which include one or more of the following: -Automated exposure control -Adjustment of the mA and/or kV according to patient size -Use of iterative reconstruction technique CT Radiation Dose DLP 572 mGy-cm COMPARISON: 09/09/2019. HISTORY: GI bleed, end-stage renal disease, black stool. FINDINGS: Stable small bilateral pleural fluid collections with compressive atelectasis and/or pneumonia in each lung base. Nasogastric tube in the stomach liver and spleen show normal enhancement. Renal glands unremarkable. Atrophic kidneys secondary to ESRD. Loops of large and small bowel are normal caliber. No bowel obstruction or inflammatory change. No active gastrointestinal bleeding associated with stomach, small bowel or colon. Again seen is an enlarged fibroid uterus. Hazy infiltration of the mesentery and subcutaneous soft tissues is compatible with anasarca. Review on bone window again shows changes from renal osteodystrophy. Scattered calcifications throughout the abdominal aorta without an aneurysm or dissection. Calcifications are found in each iliac artery. There is no flow-limiting common or external iliac artery s tenosis. Single renal arteries supply the kidneys. No renal artery stenosi s. Normal filling of the JULIAN, SMA and celiac artery without flow limiting stenosis. IMPRESSION: 1. Diffuse atherosclerotic c hanges in the abdominal aorta and iliac arteries without aneurysm, disse ction or flow-limiting stenosis. Normal filling of the vessels of the me senteric circulation. No evidence to suggest active GI bleeding 2. Atrophic kidneys compatible with history of ESRD. PAGE 1 Signed Report (CONTINUED) Name: ERINN JUNE [facility] : 1960 Age/S: 59 / F [address] Unit #: [id number] Loc: [place] [address] Phys: Oneil Hernandes MD Acct: [id number] Dis Date: Status: ADM IN PHONE #: [phone] Exam Date: 0 09/15/2019 1429 FAX #: [phone] Reason: GI Bleed, l ook for source of bleeding, she is e EXAMS: CPT CODE: [id number] CTA ABD PEL W CONT 27688 <Continued> 3. Again noted are changes secondary to anasarca and renal osteodystrophy 4. Bilateral pleural fluid collections with atelectasis and/or pneumonia in the lung bases appear stable from prior. 5. Stable enlarged fibroid uterus SL: [id number] at 1458 Reported and signed by: Russ Chamorro M.D. CC: Kayley Dickens MD; Oneil Hernandes MD Technologist:Wilder Cristobal RT(R)(CT) CTDI: DLP: Trnscb Date/Time: 09/15/2019 (8880) t.SDR.ETG Orig Print D/T: S: 09/15/2019 (0092) PAGE 2 Signed Report CBC W/AUTO [id number] 12:45:00* Test Item Value Reference Range Comments WHITE BLOOD CELL (test code=WBC) 5.73 x10 3/uL 4.5-11.0 RED BLOOD CELL (test code=RBC) 2.51 x10 6/uL 3.54-5.02 HEMOGLOBIN (test code=HGB) 7.5 g/dL 11.0-15.0 HEMATOCRIT (test code=HCT) 21.8 % 33.0-45.0 MEAN CELL VOLUME (test code=MCV) 86.9 fL 81.0-99.0 MEAN CELL HGB (test code=MCH) 29.9 pg 27.0-33.0 MEAN CELL HGB CONCETRATION (test code=MCHC) 34.4 g/dL 33.0-37.0 RED CELL DISTRIBUTION WIDTH CV (test code=RDW) 13.9 % 11.5-14.5 RED CELL DISTRIBUTION WIDTH SD (test code=RDW-SD) 42.5 fL 37.0-54.0 PLATELET COUNT (test code=PLT) 33 x10 3/uL 150-400 IMMATURE PLATELET FRACTION (test code=IPF) 6.5 % 0.9-11.2 MEAN PLATELET VOLUME (test code=MPV) 12.2 fL 7.0-9.0 NEUTROPHIL % (test code=NT%) 75.0 % 56.0-77.0 IMMATURE GRANULOCYTE % (test code=IG%) 5.4 % 0.0-2.0 LYMPHOCYTE % (test code=LY%) 11.3 % 14.0-32.0 MONOCYTE % (test code=MO%) 8.0 % 4.8-9.0 EOSINOPHIL % (test code=EO%) 0.0 % 0.3-3.7 BASOPHIL % (test code=BA%) 0.3 % 0.0-2.0 NUCLEATED RBC % (test code=NRBC%) 0.3 % 0-0 NEUTROPHIL # (test code=NT#) 4.29 x10 3/uL 2.0-7.6 IMMATURE GRANULOCYTE # (test code=IG#) 0.31 x10 3/uL 0.00-0.03 LYMPHOCYTE # (test code=LY#) 0.65 x10 3/uL 1.0-3.8 MONOCYTE # (test code=MO#) 0.46 x10 3/uL 0.1-0.8 EOSINOPHIL # (test code=EO#) 0.00 x10 3/uL 0.0-0.2 BASOPHIL # (test code=BA#) 0.02 x10 3/uL 0.0-0.2 NUCLEATED RBC # (test code=NRBC#) 0.02 x10 3/uL 0.0-0.1 MANUAL DIFF REQUIRED (test code=MDIFF) NO SLIDE REVIEWED, CONSISTENT WITH AUTO DIFF. PLT [id number] 12:45:00* Test Item Value Reference Range Comments PLATELET ESTIMATE (test code=PLTEST) THOUSAND ADEQUATE CBC W/AUTO [id number] 12:45:00* Test Item Value Reference Range Comments WHITE BLOOD CELL (test code=WBC) 5.73 x10 3/uL 4.5-11.0 RED BLOOD CELL (test code=RBC) 2.51 x10 6/uL 3.54-5.02 HEMOGLOBIN (test code=HGB) 7.5 g/dL 11.0-15.0 HEMATOCRIT (test code=HCT) 21.8 % 33.0-45.0 MEAN CELL VOLUME (test code=MCV) 86.9 fL 81.0-99.0 MEAN CELL HGB (test code=MCH) 29.9 pg 27.0-33.0 MEAN CELL HGB CONCETRATION (test code=MCHC) 34.4 g/dL 33.0-37.0 RED CELL DISTRIBUTION WIDTH CV (test code=RDW) 13.9 % 11.5-14.5 RED CELL DISTRIBUTION WIDTH SD (test code=RDW-SD) 42.5 fL 37.0-54.0 PLATELET COUNT (test code=PLT) 33 x10 3/uL 150-400 IMMATURE PLATELET FRACTION (test code=IPF) 6.5 % 0.9-11.2 MEAN PLATELET VOLUME (test code=MPV) 12.2 fL 7.0-9.0 NEUTROPHIL % (test code=NT%) 75.0 % 56.0-77.0 IMMATURE GRANULOCYTE % (test code=IG%) 5.4 % 0.0-2.0 LYMPHOCYTE % (test code=LY%) 11.3 % 14.0-32.0 MONOCYTE % (test code=MO%) 8.0 % 4.8-9.0 EOSINOPHIL % (test code=EO%) 0.0 % 0.3-3.7 BASOPHIL % (test code=BA%) 0.3 % 0.0-2.0 NUCLEATED RBC % (test code=NRBC%) 0.3 % 0-0 NEUTROPHIL # (test code=NT#) 4.29 x10 3/uL 2.0-7.6 IMMATURE GRANULOCYTE # (test code=IG#) 0.31 x10 3/uL 0.00-0.03 LYMPHOCYTE # (test code=LY#) 0.65 x10 3/uL 1.0-3.8 MONOCYTE # (test code=MO#) 0.46 x10 3/uL 0.1-0.8 EOSINOPHIL # (test code=EO#) 0.00 x10 3/uL 0.0-0.2 BASOPHIL # (test code=BA#) 0.02 x10 3/uL 0.0-0.2 NUCLEATED RBC # (test code=NRBC#) 0.02 x10 3/uL 0.0-0.1 MANUAL DIFF REQUIRED (test code=MDIFF) NO SLIDE REVIEWED, CONSISTENT WITH AUTO DIFF. PLT [id number] 12:45:00* Test Item Value Reference Range Comments PLATELET ESTIMATE (test code=PLTEST) 28-35 THOUSAND ADEQUATE PLATELET MORPHOLOGY (test code=PLTMORPH) LARGE PLATELETS FEW CBC W/AUTO [id number] 12:45:00* Test Item Value Reference Range Comments WHITE BLOOD CELL (test code=WBC) 5.73 x10 3/uL 4.5-11.0 RED BLOOD CELL (test code=RBC) 2.51 x10 6/uL 3.54-5.02 HEMOGLOBIN (test code=HGB) 7.5 g/dL 11.0-15.0 HEMATOCRIT (test code=HCT) 21.8 % 33.0-45.0 MEAN CELL VOLUME (test code=MCV) 86.9 fL 81.0-99.0 MEAN CELL HGB (test code=MCH) 29.9 pg 27.0-33.0 MEAN CELL HGB CONCETRATION (test code=MCHC) 34.4 g/dL 33.0-37.0 RED CELL DISTRIBUTION WIDTH CV (test code=RDW) 13.9 % 11.5-14.5 RED CELL DISTRIBUTION WIDTH SD (test code=RDW-SD) 42.5 fL 37.0-54.0 PLATELET COUNT (test code=PLT) 33 x10 3/uL 150-400 IMMATURE PLATELET FRACTION (test code=IPF) 6.5 % 0.9-11.2 MEAN PLATELET VOLUME (test code=MPV) 12.2 fL 7.0-9.0 NEUTROPHIL % (test code=NT%) 75.0 % 56.0-77.0 IMMATURE GRANULOCYTE % (test code=IG%) 5.4 % 0.0-2.0 LYMPHOCYTE % (test code=LY%) 11.3 % 14.0-32.0 MONOCYTE % (test code=MO%) 8.0 % 4.8-9.0 EOSINOPHIL % (test code=EO%) 0.0 % 0.3-3.7 BASOPHIL % (test code=BA%) 0.3 % 0.0-2.0 NUCLEATED RBC % (test code=NRBC%) 0.3 % 0-0 NEUTROPHIL # (test code=NT#) 4.29 x10 3/uL 2.0-7.6 IMMATURE GRANULOCYTE # (test code=IG#) 0.31 x10 3/uL 0.00-0.03 LYMPHOCYTE # (test code=LY#) 0.65 x10 3/uL 1.0-3.8 MONOCYTE # (test code=MO#) 0.46 x10 3/uL 0.1-0.8 EOSINOPHIL # (test code=EO#) 0.00 x10 3/uL 0.0-0.2 BASOPHIL # (test code=BA#) 0.02 x10 3/uL 0.0-0.2 NUCLEATED RBC # (test code=NRBC#) 0.02 x10 3/uL 0.0-0.1 MANUAL DIFF REQUIRED (test code=MDIFF) NO SLIDE REVIEWED, CONSISTENT WITH AUTO DIFF. PLT [id number] 12:45:00* Test Item Value Reference Range Comments PLATELET ESTIMATE (test code=PLTEST) THOUSAND ADEQUATE PROTHROMBIN [id number] 12:26:00* Test Item Value Reference Range Comments PROTHROMBIN TIME PATIENT (test code=PTP) 15.6 SECONDS 9.3-12.9 INTERNATIONAL NORMAL RATIO (test code=INR) 1.4 0.8-1.2 TARGET INR BY INDICATION Indication INR1. Prophylaxis of venous thrombosis 2.0 - 3.0 (orthopedic surgery), Prophylaxis of venous thrombosis (other than high-risk surgery), Treatment of Deep Vein Thrombosis/Pulmonary Embolism, Prevention of systemic embolism - Tissue heart valves, Acute Myocardial Infarction (to prevent systemic embolism), Valvular heart disease, Atrial Fibrillation, Bileaflet mechanical valve in aortic position.2. Mechanical prosthetic valves (high risk), 2.5 - 3.5 Presence of Lupus Anticoagulant or Antiphospholipid Antibodies, Prevention of systemic embolism - Acute Myocardial Infarction (to prevent recurrent infarct). THROMBOPLASTIN TIME [id number] 12:26:00* Test Item Value Reference Range Comments THROMBOPLASTIN TIME PARTIAL (test code=PTT) 31.7 Seconds 25.0-39.5 Therapeutic Range: 50.4 - 88.3 Seconds Effective 12/17/2018 [id number] 12:26:00* Test Item Value Reference Range Comments FIBRINOGEN (test code=FIB) 214 MG/DL 160-450 Excess administration of anticoagulants and/or FibrinDegradation Products may affect Fibrinogen value. CBC W/AUTO [id number] 12:11:00* Test Item Value Reference Range Comments WHITE BLOOD CELL (test code=WBC) 5.73 x10 3/uL 4.5-11.0 RED BLOOD CELL (test code=RBC) 2.51 x10 6/uL 3.54-5.02 HEMOGLOBIN (test code=HGB) 7.5 g/dL 11.0-15.0 HEMATOCRIT (test code=HCT) 21.8 % 33.0-45.0 MEAN CELL VOLUME (test code=MCV) 86.9 fL 81.0-99.0 MEAN CELL HGB (test code=MCH) 29.9 pg 27.0-33.0 MEAN CELL HGB CONCETRATION (test code=MCHC) 34.4 g/dL 33.0-37.0 RED CELL DISTRIBUTION WIDTH CV (test code=RDW) 13.9 % 11.5-14.5 RED CELL DISTRIBUTION WIDTH SD (test code=RDW-SD) 42.5 fL 37.0-54.0 PLATELET COUNT (test code=PLT) 33 x10 3/uL 150-400 IMMATURE PLATELET FRACTION (test code=IPF) 6.5 % 0.9-11.2 MEAN PLATELET VOLUME (test code=MPV) 12.2 fL 7.0-9.0 NEUTROPHIL % (test code=NT%) % 56.0-77.0 LYMPHOCYTE % (test code=LY%) % 14.0-32.0 NEUTROPHIL # (test code=NT#) x10 3/uL 2.0-7.6 LYMPHOCYTE # (test code=LY#) x10 3/uL 1.0-3.8 MANUAL DIFF REQUIRED (test code=MDIFF) - XR ABDOMEN 1V (KUB)2019-09-15 12:09:00 FAX: Tamara Lemons NP [phone] Cammal: St: ADM FAX: Kayley Velasco MD [phone] Name: ERINN JUNE [facility] : 1960 Age/S: 59/F [address] [place] [address] Unit #: [id number] Loc: [id number] [address] Phys: Tamara Lemons NP Acct: [id number] Dis Date: Status: ADM IN PHONE #: [phone] Exam Date: 09/15/2019 1205 FAX #: [phone] Reason: abdominal bleeding? EXAMS: CPT CODE: [id number] XR ABDOMEN 1V (KUB) 93452 Clinical Indication: Abdominal bleeding. Comparison: CT 09/09/2019. Impression: Abdomen, single view. NG tube projects over the stomach. Bowel gas pattern is nonobstructive. Multiple calcified uterine fibroids. Vascular calcifications. Degenerative changes of the lumbosacral spine. SL: [id number] at 1209 Reported and si gned by: Ace Pan M.D. CC: Tamara Lemons NP; Kayley Dickens MD Technologist: RT Sharon(R) Trnscrd Date/Time/By: 09/15/2019 (0540) : By: [email or web address] Orig Print D/T: S: 09/15/2019 (5469) PAGE 1 Signed Report BASIC METABOLIC [id number] 11:19:00* Test Item Value Reference Range Comments SODIUM (test code=NA) 141 mEq/L 134-147 POTASSIUM (test code=K) 3.4 mEq/L 3.4-5.0 CHLORIDE (test code=CL) 105 mEq/L 100-108 CARBON DIOXIDE (test code=CO2) 31 mEq/L 21-33 ANION GAP (test code=GAP) 8 0-20 GLUCOSE (test code=GLU) 196 mg/dL 70-110 BLOOD UREA NITROGEN (test code=BUN) 30 mg/dL 7-18 GLOMERULAR FILTRATION RATE (test code=GFR) 68.7 90-95 Units of measure=ml/min/1.73 m2 CREATININE (test code=CREAT) 1.0 mg/dL 0.6-1.3 CALCIUM (test code=CA) 6.9 mg/dL 8.0-10.5 HGB [id number] 10:47:00* Test Item Value Reference Range Comments HEMOGLOBIN (test code=HGB) 7.0 g/dL 11.0-15.0 HEMATOCRIT (test code=HCT) 20.9 % 33.0-45.0 [id number] 10:46:00* Test Item Value Reference Range Comments GLUBED (test code=GLUBED) 120 MG/DL 70-110 Performed by certified wireline field operator at [facility] [id number] 09:50:00* Test Item Value Reference Range Comments GLUBED (test code=GLUBED) 66 MG/DL 70-110 Performed by certified wireline field operator at [facility] [id number] 09:50:00* Test Item Value Reference Range Comments GLUBED (test code=GLUBED) 57 MG/DL 70-110 Performed by certified wireline field operator at [facility] [id number] 09:50:00* Test Item Value Reference Range Comments GLUBED (test code=GLUBED) 57 MG/DL 70-110 Performed by certified wireline field operator at [facility] [id number] 09:50:00* Test Item Value Reference Range Comments GLUBED (test code=GLUBED) 57 MG/DL 70-110 Performed by certified wireline field operator at [facility] [id number] 09:50:00* Test Item Value Reference Range Comments GLUBED (test code=GLUBED) 55 MG/DL 70-110 Performed by certified wireline field operator at [facility] [id number] 09:49:00* Test Item Value Reference Range Comments GLUBED (test code=GLUBED) 81 MG/DL 70-110 Performed by certified wireline field operator at [facility] [id number] 09:49:00* Test Item Value Reference Range Comments GLUBED (test code=GLUBED) 100 MG/DL 70-110 Performed by certified wireline field operator at [facility] - XR CHEST 1 [id number] 05:56:00 FAX: Kayley Velasco MD [phone] Cammal: St: ADM FAX: Oneil Hernandes [phone] Name: ERINN JUNE [facility] : 1960 Age/S: 59/F [address] [place] [address] Unit #: [id number] Loc: [address] [address] Phys: Oneil Hernandes MD Acct: [id number] Dis Date: Status: ADM IN PHONE #: [phone] Exam Date: 09/15/2019 0539 FAX #: [phone] Reason: CVL RIJ placed EXAMS: CPT CODE: [id number] XR CHEST 1 V 91621 Study: - XR CHEST 1 V 09/15/2019 4:10 AM Patient Name: ERINN JUNE MR: [id number] : 1960; Age: 59 years y/o Female Ordering Physician: Oneil Hernandes MD Clinical Indication: CVL RIJ placed Comparison: 08/24/2019 FINDINGS LUNGS: Decreasing pulmonary inflation now with mild hypoinflation, mildly elevated right hemidiaphragm, and mild bilateral basilar subsegmental atelectasis. Subtle retrocardiac opacity with air bronchograms is worrisome for pneumonia. No pleural effusion or pneumothorax. HEART AND MEDIASTINUM: Normal size heart. LINES: Right internal jugular central venous catheter tip overlying the distal SVC. Nasogastric tube tip overlying the mid stomach projecting slightly laterally to it possibly tenting the gastric wall but difficult to further evaluate on a chest radiograph. OSSEOUS STRUCTURES: No fra cture, dislocation, or suspicious focal osseous lesion. OTHE R: None. IMPRESSION: Decreasing pulmon paula inflation now with mild hypoinflation, mildly elevated right hemidia phragm, and mild bilateral basilar subsegmental atelectasis. Subtle retrocardiac opacity with air bronchograms is worrisome for pneumonia. Nasogastric tube tip overlying the mid stomach p rojecting slightly PAGE 1 Signed Report (CONTINUED) FAX: Kayley Velasco MD [phone] Cammal: St: ADM FAX: Oneil Hernandes [phone] Name: ERINN JUNE [facility] : 1960 Age/S: [age]/F [address] [place] [address] Unit #: [id number] Loc: GM3 [address] [place] [address] Phys: Oneil Hernandes MD Acct: [id number] Dis Date: S tatus: ADM IN PHONE #: [phone] Exam Ealge e: 09/15/2019 0539 FAX #: [phone] Reason: CVL RIJ placed EXAMS: CPT CODE: [id number] XR CHEST 1 V 39613 <Continued> laterally to it possibly tenting the gastric wall but difficult to further evaluate on a chest radiograph. No definite pneumoperitoneum is seen on this supine examination to suggest perforation. Clinical correlation and follow-up are required with regards to nasogastric tube tip placement. SL: TPAINTER-H at 0556 Reported and signed by: Marcos Jones M.D. CC: Kayley Dickens MD; Oneil Hernandes MD Technologist: RT Phani(R) Trnarun Date/Time/By: 09/15/2019 (0556) : By: [email or web address] Orig Print D/T: S: 09/15/2019 (0550) PAGE 2 Signed Report CBC W/AUTO [id number] 05:02:00* Test Item Value Reference Range Comments WHITE BLOOD CELL (test code=WBC) 4.98 x10 3/uL 4.5-11.0 RED BLOOD CELL (test code=RBC) 1.53 x10 6/uL 3.54-5.02 HEMOGLOBIN (test code=HGB) 4.5 g/dL 11.0-15.0 HEMATOCRIT (test code=HCT) 13.5 % 33.0-45.0 MEAN CELL VOLUME (test code=MCV) 88.2 fL 81.0-99.0 MEAN CELL HGB (test code=MCH) 29.4 pg 27.0-33.0 MEAN CELL HGB CONCETRATION (test code=MCHC) 33.3 g/dL 33.0-37.0 RED CELL DISTRIBUTION WIDTH CV (test code=RDW) 14.5 % 11.5-14.5 RED CELL DISTRIBUTION WIDTH SD (test code=RDW-SD) 42.8 fL 37.0-54.0 PLATELET COUNT (test code=PLT) 71 x10 3/uL 150-400 IMMATURE PLATELET FRACTION (test code=IPF) 2.7 % 0.9-11.2 MEAN PLATELET VOLUME (test code=MPV) 11.3 fL 7.0-9.0 MANUAL DIFF REQUIRED (test code=MDIFF) YES WBC [id number] 05:02:00* Test Item Value Reference Range Comments SEGMENTED NEUTROPHILS (test code=SEG) 87.0 % 37-69 LYMPHOCYTE (test code=LYMPH) 10.2 % 23-55 METAMYELOCYTE (test code=META) 0.9 % 0.0-0.0 MYELOCYTE (test code=MYELO) 1.9 % 0.0-0.0 POLYCHROMASIA (test code=POLC) SLIGHT POIKILOCYTOSIS (test code=POIK) SLIGHT ANISOCYTOSIS (test code=ANISO) 1+ MACROCYTOSIS (test code=MACR) 1+ SCHISTOCYTES (test code=FALGUNI) FEW PLATELET ESTIMATE (test code=PLTEST) 68-85 THOUSAND ADEQUATE PLATELET MORPHOLOGY (test code=PLTMORPH) LARGE PLATELETS CBC W/AUTO [id number] 04:59:00* Test Item Value Reference Range Comments WHITE BLOOD CELL (test code=WBC) 4.98 x10 3/uL 4.5-11.0 RED BLOOD CELL (test code=RBC) 1.53 x10 6/uL 3.54-5.02 HEMOGLOBIN (test code=HGB) 4.5 g/dL 11.0-15.0 HEMATOCRIT (test code=HCT) 13.5 % 33.0-45.0 MEAN CELL VOLUME (test code=MCV) 88.2 fL 81.0-99.0 MEAN CELL HGB (test code=MCH) 29.4 pg 27.0-33.0 MEAN CELL HGB CONCETRATION (test code=MCHC) 33.3 g/dL 33.0-37.0 RED CELL DISTRIBUTION WIDTH CV (test code=RDW) 14.5 % 11.5-14.5 RED CELL DISTRIBUTION WIDTH SD (test code=RDW-SD) 42.8 fL 37.0-54.0 PLATELET COUNT (test code=PLT) 71 x10 3/uL 150-400 IMMATURE PLATELET FRACTION (test code=IPF) 2.7 % 0.9-11.2 MEAN PLATELET VOLUME (test code=MPV) 11.3 fL 7.0-9.0 MANUAL DIFF REQUIRED (test code=MDIFF) YES WBC [id number] 04:59:00* Test Item Value Reference Range Comments ANISOCYTOSIS (test code=ANISO) PLATELET ESTIMATE (test code=PLTEST) THOUSAND ADEQUATE CBC W/AUTO [id number] 04:59:00* Test Item Value Reference Range Comments WHITE BLOOD CELL (test code=WBC) 4.98 x10 3/uL 4.5-11.0 RED BLOOD CELL (test code=RBC) 1.53 x10 6/uL 3.54-5.02 HEMOGLOBIN (test code=HGB) 4.5 g/dL 11.0-15.0 HEMATOCRIT (test code=HCT) 13.5 % 33.0-45.0 MEAN CELL VOLUME (test code=MCV) 88.2 fL 81.0-99.0 MEAN CELL HGB (test code=MCH) 29.4 pg 27.0-33.0 MEAN CELL HGB CONCETRATION (test code=MCHC) 33.3 g/dL 33.0-37.0 RED CELL DISTRIBUTION WIDTH CV (test code=RDW) 14.5 % 11.5-14.5 RED CELL DISTRIBUTION WIDTH SD (test code=RDW-SD) 42.8 fL 37.0-54.0 PLATELET COUNT (test code=PLT) 71 x10 3/uL 150-400 IMMATURE PLATELET FRACTION (test code=IPF) 2.7 % 0.9-11.2 MEAN PLATELET VOLUME (test code=MPV) 11.3 fL 7.0-9.0 MANUAL DIFF REQUIRED (test code=MDIFF) YES WBC [id number] 04:59:00* Test Item Value Reference Range Comments ANISOCYTOSIS (test code=ANISO) PLATELET ESTIMATE (test code=PLTEST) THOUSAND ADEQUATE BASIC METABOLIC [id number] 04:57:00* Test Item Value Reference Range Comments SODIUM (test code=NA) 134 mEq/L 134-147 POTASSIUM (test code=K) 5.5 mEq/L 3.4-5.0 CHLORIDE (test code=CL) 102 mEq/L 100-108 CARBON DIOXIDE (test code=CO2) 25 mEq/L 21-33 ANION GAP (test code=GAP) 13 0-20 GLUCOSE (test code=GLU) 228 mg/dL 70-110 BLOOD UREA NITROGEN (test code=BUN) 70 mg/dL 7-18 GLOMERULAR FILTRATION RATE (test code=GFR) 26.3 90-95 Units of measure=ml/min/1.73 m2 CREATININE (test code=CREAT) 2.3 mg/dL 0.6-1.3 CALCIUM (test code=CA) 6.9 mg/dL 8.0-10.5 [id number] 04:57:00* Test Item Value Reference Range Comments PHOSPHOROUS (test code=PHOS) 0.7 MG/DL 2.5-4.9 [id number] 04:57:00* Test Item Value Reference Range Comments MAGNESIUM (test code=MAG) 1.40 mg/dL 1.8-2.4 CALCIUM [id number] 04:57:00* Test Item Value Reference Range Comments CALCIUM IONIZED (test code=YASMIN) 1.09 MMOL/L 1.12-1.32 PROTHROMBIN [id number] 04:55:00* Test Item Value Reference Range Comments PROTHROMBIN TIME PATIENT (test code=PTP) 14.8 SECONDS 9.3-12.9 INTERNATIONAL NORMAL RATIO (test code=INR) 1.4 0.8-1.2 TARGET INR BY INDICATION Indication INR1. Prophylaxis of venous thrombosis 2.0 - 3.0 (orthopedic surgery), Prophylaxis of venous thrombosis (other than high-risk surgery), Treatment of Deep Vein Thrombosis/Pulmonary Embolism, Prevention of systemic embolism - Tissue heart valves, Acute Myocardial Infarction (to prevent systemic embolism), Valvular heart disease, Atrial Fibrillation, Bileaflet mechanical valve in aortic position.2. Mechanical prosthetic valves (high risk), 2.5 - 3.5 Presence of Lupus Anticoagulant or Antiphospholipid Antibodies, Prevention of systemic embolism - Acute Myocardial Infarction (to prevent recurrent infarct). THROMBOPLASTIN TIME [id number] 04:55:00* Test Item Value Reference Range Comments THROMBOPLASTIN TIME PARTIAL (test code=PTT) 32.6 Seconds 25.0-39.5 Therapeutic Range: 50.4 - 88.3 Seconds Effective 12/17/2018 [id number] 04:55:00* Test Item Value Reference Range Comments FIBRINOGEN (test code=FIB) 216 MG/DL 160-450 Excess administration of anticoagulants and/or FibrinDegradation Products may affect Fibrinogen value. BASIC METABOLIC [id number] 04:52:00* Test Item Value Reference Range Comments SODIUM (test code=NA) mEq/L 134-147 POTASSIUM (test code=K) mEq/L 3.4-5.0 CHLORIDE (test code=CL) mEq/L 100-108 CARBON DIOXIDE (test code=CO2) mEq/L 21-33 ANION GAP (test code=GAP) 0-20 GLUCOSE (test code=GLU) mg/dL 70-110 BLOOD UREA NITROGEN (test code=BUN) mg/dL 7-18 GLOMERULAR FILTRATION RATE (test code=GFR) 90-95 CREATININE (test code=CREAT) mg/dL 0.6-1.3 CALCIUM (test code=CA) mg/dL 8.0-10.5 [id number] 04:52:00* Test Item Value Reference Range Comments PHOSPHOROUS (test code=PHOS) MG/DL 2.5-4.9 [id number] 04:52:00* Test Item Value Reference Range Comments MAGNESIUM (test code=MAG) mg/dL 1.8-2.4 CALCIUM [id number] 04:52:00* Test Item Value Reference Range Comments CALCIUM IONIZED (test code=YASMIN) 1.09 MMOL/L 1.12-1.32 CBC W/AUTO [id number] 04:39:00* Test Item Value Reference Range Comments WHITE BLOOD CELL (test code=WBC) 4.98 x10 3/uL 4.5-11.0 RED BLOOD CELL (test code=RBC) 1.53 x10 6/uL 3.54-5.02 HEMOGLOBIN (test code=HGB) 4.5 g/dL 11.0-15.0 HEMATOCRIT (test code=HCT) 13.5 % 33.0-45.0 MEAN CELL VOLUME (test code=MCV) 88.2 fL 81.0-99.0 MEAN CELL HGB (test code=MCH) 29.4 pg 27.0-33.0 MEAN CELL HGB CONCETRATION (test code=MCHC) 33.3 g/dL 33.0-37.0 RED CELL DISTRIBUTION WIDTH CV (test code=RDW) 14.5 % 11.5-14.5 RED CELL DISTRIBUTION WIDTH SD (test code=RDW-SD) 42.8 fL 37.0-54.0 PLATELET COUNT (test code=PLT) 71 x10 3/uL 150-400 IMMATURE PLATELET FRACTION (test code=IPF) 2.7 % 0.9-11.2 MEAN PLATELET VOLUME (test code=MPV) 11.3 fL 7.0-9.0 NEUTROPHIL % (test code=NT%) % 56.0-77.0 LYMPHOCYTE % (test code=LY%) % 14.0-32.0 NEUTROPHIL # (test code=NT#) x10 3/uL 2.0-7.6 LYMPHOCYTE # (test code=LY#) x10 3/uL 1.0-3.8 MANUAL DIFF REQUIRED (test code=MDIFF) LACTIC DEHYDROGENASE(LDH)2019-09-15 03:24:00* Test Item Value Reference Range Comments LACTIC DEHYDROGENASE(LDH) (test code=LDH) 234 IUnits/L 84-246 FOLIC [id number] 03:24:00* Test Item Value Reference Range Comments FOLIC ACID (test code=FOL) 5.6 ng/mL 3.1-17.5 CBC W/MANUAL [id number] 03:15:00* Test Item Value Reference Range Comments WHITE BLOOD CELL (test code=WBC) 4.73 x10 3/uL 4.5-11.0 RED BLOOD CELL (test code=RBC) 1.78 x10 6/uL 3.54-5.02 HEMOGLOBIN (test code=HGB) 5.2 g/dL 11.0-15.0 HEMATOCRIT (test code=HCT) 16.0 % 33.0-45.0 MEAN CELL VOLUME (test code=MCV) 89.9 fL 81.0-99.0 MEAN CELL HGB (test code=MCH) 29.2 pg 27.0-33.0 MEAN CELL HGB CONCETRATION (test code=MCHC) 32.5 g/dL 33.0-37.0 RED CELL DISTRIBUTION WIDTH CV (test code=RDW) 14.8 % 11.5-14.5 RED CELL DISTRIBUTION WIDTH SD (test code=RDW-SD) 44.2 fL 37.0-54.0 PLATELET COUNT (test code=PLT) 83 x10 3/uL 150-400 IMMATURE PLATELET FRACTION (test code=IPF) 3.0 % 0.9-11.2 MEAN PLATELET VOLUME (test code=MPV) 10.9 fL 7.0-9.0 SEGMENTED NEUTROPHILS (test code=SEG) 72.6 % 37-69 LYMPHOCYTE (test code=LYMPH) 19.8 % 23-55 MONOCYTE (test code=MON) 6.6 % 0-10 MYELOCYTE (test code=MYELO) 1.0 % 0.0-0.0 NUCLEATED RED BLOOD CELL (test code=NRBC) 1.9 % POLYCHROMASIA (test code=POLC) SLIGHT POIKILOCYTOSIS (test code=POIK) 1+ ANISOCYTOSIS (test code=ANISO) 1+ MICROCYTOSIS (test code=MICR) 1+ TEAR DROP CELLS (test code=TEAR) FEW SCHISTOCYTES (test code=FALGUNI) FEW PLATELET ESTIMATE (test code=PLTEST) 84-105 THOUSAND ADEQUATE PLATELET MORPHOLOGY (test code=PLTMORPH) LARGE PLATELETS RETIC COUNT (AUTOMATED)2019-09-15 03:15:00* Test Item Value Reference Range Comments RETIC COUNT (AUTOMATED) (test code=RETICA) 4.1 % 0.3-2.3 CBC W/MANUAL [id number] 02:55:00* Test Item Value Reference Range Comments WHITE BLOOD CELL (test code=WBC) 4.73 x10 3/uL 4.5-11.0 RED BLOOD CELL (test code=RBC) 1.78 x10 6/uL 3.54-5.02 HEMOGLOBIN (test code=HGB) 5.2 g/dL 11.0-15.0 HEMATOCRIT (test code=HCT) 16.0 % 33.0-45.0 MEAN CELL VOLUME (test code=MCV) 89.9 fL 81.0-99.0 MEAN CELL HGB (test code=MCH) 29.2 pg 27.0-33.0 MEAN CELL HGB CONCETRATION (test code=MCHC) 32.5 g/dL 33.0-37.0 RED CELL DISTRIBUTION WIDTH CV (test code=RDW) 14.8 % 11.5-14.5 RED CELL DISTRIBUTION WIDTH SD (test code=RDW-SD) 44.2 fL 37.0-54.0 PLATELET COUNT (test code=PLT) 83 x10 3/uL 150-400 IMMATURE PLATELET FRACTION (test code=IPF) 3.0 % 0.9-11.2 MEAN PLATELET VOLUME (test code=MPV) 10.9 fL 7.0-9.0 ANISOCYTOSIS (test code=ANISO) PLATELET ESTIMATE (test code=PLTEST) THOUSAND ADEQUATE RETIC COUNT (AUTOMATED)2019-09-15 02:55:00* Test Item Value Reference Range Comments RETIC COUNT (AUTOMATED) (test code=RETICA) 4.1 % 0.3-2.3 [id number] 02:34:00* Test Item Value Reference Range Comments GLUBED (test code=GLUBED) 146 MG/DL 70-110 Performed by certified wireline field operator at [facility] [id number] 00:06:00* Test Item Value Reference Range Comments GLUBED (test code=GLUBED) 87 MG/DL 70-110 Performed by certified wireline field operator at [facility] [id number] 16:36:00* Test Item Value Reference Range Comments GLUBED (test code=GLUBED) 171 MG/DL 70-110 Performed by certified wireline field operator at [facility] [id number] 12:00:00* Test Item Value Reference Range Comments GLUBED (test code=GLUBED) 160 MG/DL 70-110 Performed by certified wireline field operator at [facility] CBC W/AUTO [id number] 10:31:00* Test Item Value Reference Range Comments WHITE BLOOD CELL (test code=WBC) 3.51 x10 3/uL 4.5-11.0 RED BLOOD CELL (test code=RBC) 2.41 x10 6/uL 3.54-5.02 HEMOGLOBIN (test code=HGB) 6.8 g/dL 11.0-15.0 HEMATOCRIT (test code=HCT) 20.9 % 33.0-45.0 MEAN CELL VOLUME (test code=MCV) 86.7 fL 81.0-99.0 MEAN CELL HGB (test code=MCH) 28.2 pg 27.0-33.0 MEAN CELL HGB CONCETRATION (test code=MCHC) 32.5 g/dL 33.0-37.0 RED CELL DISTRIBUTION WIDTH CV (test code=RDW) 15.9 % 11.5-14.5 RED CELL DISTRIBUTION WIDTH SD (test code=RDW-SD) 45.9 fL 37.0-54.0 PLATELET COUNT (test code=PLT) 93 x10 3/uL 150-400 IMMATURE PLATELET FRACTION (test code=IPF) 1.9 % 0.9-11.2 MEAN PLATELET VOLUME (test code=MPV) 10.4 fL 7.0-9.0 NEUTROPHIL % (test code=NT%) 65.5 % 56.0-77.0 IMMATURE GRANULOCYTE % (test code=IG%) 1.7 % 0.0-2.0 LYMPHOCYTE % (test code=LY%) 15.1 % 14.0-32.0 MONOCYTE % (test code=MO%) 15.1 % 4.8-9.0 EOSINOPHIL % (test code=EO%) 1.7 % 0.3-3.7 BASOPHIL % (test code=BA%) 0.9 % 0.0-2.0 NUCLEATED RBC % (test code=NRBC%) 0.6 % 0-0 NEUTROPHIL # (test code=NT#) 2.30 x10 3/uL 2.0-7.6 IMMATURE GRANULOCYTE # (test code=IG#) 0.06 x10 3/uL 0.00-0.03 LYMPHOCYTE # (test code=LY#) 0.53 x10 3/uL 1.0-3.8 MONOCYTE # (test code=MO#) 0.53 x10 3/uL 0.1-0.8 EOSINOPHIL # (test code=EO#) 0.06 x10 3/uL 0.0-0.2 BASOPHIL # (test code=BA#) 0.03 x10 3/uL 0.0-0.2 NUCLEATED RBC # (test code=NRBC#) 0.02 x10 3/uL 0.0-0.1 MANUAL DIFF REQUIRED (test code=MDIFF) NO PLT [id number] 10:31:00* Test Item Value Reference Range Comments PLATELET ESTIMATE (test code=PLTEST) 80-100 THOUSAND ADEQUATE CBC W/AUTO [id number] 10:30:00* Test Item Value Reference Range Comments WHITE BLOOD CELL (test code=WBC) 3.51 x10 3/uL 4.5-11.0 RED BLOOD CELL (test code=RBC) 2.41 x10 6/uL 3.54-5.02 HEMOGLOBIN (test code=HGB) 6.8 g/dL 11.0-15.0 HEMATOCRIT (test code=HCT) 20.9 % 33.0-45.0 MEAN CELL VOLUME (test code=MCV) 86.7 fL 81.0-99.0 MEAN CELL HGB (test code=MCH) 28.2 pg 27.0-33.0 MEAN CELL HGB CONCETRATION (test code=MCHC) 32.5 g/dL 33.0-37.0 RED CELL DISTRIBUTION WIDTH CV (test code=RDW) 15.9 % 11.5-14.5 RED CELL DISTRIBUTION WIDTH SD (test code=RDW-SD) 45.9 fL 37.0-54.0 PLATELET COUNT (test code=PLT) 93 x10 3/uL 150-400 IMMATURE PLATELET FRACTION (test code=IPF) 1.9 % 0.9-11.2 MEAN PLATELET VOLUME (test code=MPV) 10.4 fL 7.0-9.0 NEUTROPHIL % (test code=NT%) 65.5 % 56.0-77.0 IMMATURE GRANULOCYTE % (test code=IG%) 1.7 % 0.0-2.0 LYMPHOCYTE % (test code=LY%) 15.1 % 14.0-32.0 MONOCYTE % (test code=MO%) 15.1 % 4.8-9.0 EOSINOPHIL % (test code=EO%) 1.7 % 0.3-3.7 BASOPHIL % (test code=BA%) 0.9 % 0.0-2.0 NUCLEATED RBC % (test code=NRBC%) 0.6 % 0-0 NEUTROPHIL # (test code=NT#) 2.30 x10 3/uL 2.0-7.6 IMMATURE GRANULOCYTE # (test code=IG#) 0.06 x10 3/uL 0.00-0.03 LYMPHOCYTE # (test code=LY#) 0.53 x10 3/uL 1.0-3.8 MONOCYTE # (test code=MO#) 0.53 x10 3/uL 0.1-0.8 EOSINOPHIL # (test code=EO#) 0.06 x10 3/uL 0.0-0.2 BASOPHIL # (test code=BA#) 0.03 x10 3/uL 0.0-0.2 NUCLEATED RBC # (test code=NRBC#) 0.02 x10 3/uL 0.0-0.1 MANUAL DIFF REQUIRED (test code=MDIFF) NO PLT [id number] 10:30:00* Test Item Value Reference Range Comments PLATELET ESTIMATE (test code=PLTEST) THOUSAND ADEQUATE CBC W/AUTO [id number] 10:30:00* Test Item Value Reference Range Comments WHITE BLOOD CELL (test code=WBC) 3.51 x10 3/uL 4.5-11.0 RED BLOOD CELL (test code=RBC) 2.41 x10 6/uL 3.54-5.02 HEMOGLOBIN (test code=HGB) 6.8 g/dL 11.0-15.0 HEMATOCRIT (test code=HCT) 20.9 % 33.0-45.0 MEAN CELL VOLUME (test code=MCV) 86.7 fL 81.0-99.0 MEAN CELL HGB (test code=MCH) 28.2 pg 27.0-33.0 MEAN CELL HGB CONCETRATION (test code=MCHC) 32.5 g/dL 33.0-37.0 RED CELL DISTRIBUTION WIDTH CV (test code=RDW) 15.9 % 11.5-14.5 RED CELL DISTRIBUTION WIDTH SD (test code=RDW-SD) 45.9 fL 37.0-54.0 PLATELET COUNT (test code=PLT) 93 x10 3/uL 150-400 IMMATURE PLATELET FRACTION (test code=IPF) 1.9 % 0.9-11.2 MEAN PLATELET VOLUME (test code=MPV) 10.4 fL 7.0-9.0 NEUTROPHIL % (test code=NT%) 65.5 % 56.0-77.0 IMMATURE GRANULOCYTE % (test code=IG%) 1.7 % 0.0-2.0 LYMPHOCYTE % (test code=LY%) 15.1 % 14.0-32.0 MONOCYTE % (test code=MO%) 15.1 % 4.8-9.0 EOSINOPHIL % (test code=EO%) 1.7 % 0.3-3.7 BASOPHIL % (test code=BA%) 0.9 % 0.0-2.0 NUCLEATED RBC % (test code=NRBC%) 0.6 % 0-0 NEUTROPHIL # (test code=NT#) 2.30 x10 3/uL 2.0-7.6 IMMATURE GRANULOCYTE # (test code=IG#) 0.06 x10 3/uL 0.00-0.03 LYMPHOCYTE # (test code=LY#) 0.53 x10 3/uL 1.0-3.8 MONOCYTE # (test code=MO#) 0.53 x10 3/uL 0.1-0.8 EOSINOPHIL # (test code=EO#) 0.06 x10 3/uL 0.0-0.2 BASOPHIL # (test code=BA#) 0.03 x10 3/uL 0.0-0.2 NUCLEATED RBC # (test code=NRBC#) 0.02 x10 3/uL 0.0-0.1 MANUAL DIFF REQUIRED (test code=MDIFF) NO PLT [id number] 10:30:00* Test Item Value Reference Range Comments PLATELET ESTIMATE (test code=PLTEST) THOUSAND ADEQUATE BASIC METABOLIC [id number] 10:14:00* Test Item Value Reference Range Comments SODIUM (test code=NA) 135 mEq/L 134-147 POTASSIUM (test code=K) 4.9 mEq/L 3.4-5.0 CHLORIDE (test code=CL) 100 mEq/L 100-108 CARBON DIOXIDE (test code=CO2) 30 mEq/L 21-33 ANION GAP (test code=GAP) 10 0-20 GLUCOSE (test code=GLU) 178 mg/dL 70-110 BLOOD UREA NITROGEN (test code=BUN) 47 mg/dL 7-18 GLOMERULAR FILTRATION RATE (test code=GFR) 30.9 90-95 Units of measure=ml/min/1.73 m2 CREATININE (test code=CREAT) 2.0 mg/dL 0.6-1.3 CALCIUM (test code=CA) 7.5 mg/dL 8.0-10.5 [id number] 06:02:00* Test Item Value Reference Range Comments GLUBED (test code=GLUBED) 159 MG/DL 70-110 Performed by certified wireline field operator at [facility] [id number] 06:02:00* Test Item Value Reference Range Comments GLUBED (test code=GLUBED) 182 MG/DL 70-110 Performed by certified wireline field operator at [facility] [id number] 06:02:00* Test Item Value Reference Range Comments GLUBED (test code=GLUBED) 182 MG/DL 70-110 Performed by certified wireline field operator at [facility] [id number] 21:38:00* Test Item Value Reference Range Comments GLUBED (test code=GLUBED) 92 MG/DL 70-110 Performed by certified wireline field operator at [facility] [id number] 20:26:00* Test Item Value Reference Range Comments GLUBED (test code=GLUBED) 58 MG/DL 70-110 Performed by certified wireline field operator at [facility] [id number] 18:28:00* Test Item Value Reference Range Comments GLUBED (test code=GLUBED) 66 MG/DL 70-110 Performed by certified wireline field operator at [facility] [id number] 18:28:00* Test Item Value Reference Range Comments GLUBED (test code=GLUBED) 115 MG/DL 70-110 Performed by certified wireline field operator at [facility] CBC W/AUTO [id number] 10:20:00* Test Item Value Reference Range Comments WHITE BLOOD CELL (test code=WBC) 3.60 x10 3/uL 4.5-11.0 RED BLOOD CELL (test code=RBC) 2.11 x10 6/uL 3.54-5.02 HEMOGLOBIN (test code=HGB) 6.0 g/dL 11.0-15.0 HEMATOCRIT (test code=HCT) 18.5 % 33.0-45.0 MEAN CELL VOLUME (test code=MCV) 87.7 fL 81.0-99.0 MEAN CELL HGB (test code=MCH) 28.4 pg 27.0-33.0 MEAN CELL HGB CONCETRATION (test code=MCHC) 32.4 g/dL 33.0-37.0 RED CELL DISTRIBUTION WIDTH CV (test code=RDW) 16.4 % 11.5-14.5 RED CELL DISTRIBUTION WIDTH SD (test code=RDW-SD) 46.6 fL 37.0-54.0 PLATELET COUNT (test code=PLT) x10 3/uL 150-400 SEE PLT EST. MEAN PLATELET VOLUME (test code=MPV) 10.0 fL 7.0-9.0 NEUTROPHIL % (test code=NT%) 76.4 % 56.0-77.0 IMMATURE GRANULOCYTE % (test code=IG%) 1.1 % 0.0-2.0 LYMPHOCYTE % (test code=LY%) 10.0 % 14.0-32.0 MONOCYTE % (test code=MO%) 10.8 % 4.8-9.0 EOSINOPHIL % (test code=EO%) 1.4 % 0.3-3.7 BASOPHIL % (test code=BA%) 0.3 % 0.0-2.0 NUCLEATED RBC % (test code=NRBC%) 0.0 % 0-0 NEUTROPHIL # (test code=NT#) 2.75 x10 3/uL 2.0-7.6 IMMATURE GRANULOCYTE # (test code=IG#) 0.04 x10 3/uL 0.00-0.03 LYMPHOCYTE # (test code=LY#) 0.36 x10 3/uL 1.0-3.8 MONOCYTE # (test code=MO#) 0.39 x10 3/uL 0.1-0.8 EOSINOPHIL # (test code=EO#) 0.05 x10 3/uL 0.0-0.2 BASOPHIL # (test code=BA#) 0.01 x10 3/uL 0.0-0.2 NUCLEATED RBC # (test code=NRBC#) 0.00 x10 3/uL 0.0-0.1 MANUAL DIFF REQUIRED (test code=MDIFF) NO PLT [id number] 10:20:00* Test Item Value Reference Range Comments PLATELET ESTIMATE (test code=PLTEST) 80-100 THOUSAND ADEQUATE PLATELET MORPHOLOGY (test code=PLTMORPH) LARGE PLATELETS FEW BASIC METABOLIC [id number] 10:02:00* Test Item Value Reference Range Comments SODIUM (test code=NA) 140 mEq/L 134-147 POTASSIUM (test code=K) 4.0 mEq/L 3.4-5.0 CHLORIDE (test code=CL) 104 mEq/L 100-108 CARBON DIOXIDE (test code=CO2) 33 mEq/L 21-33 ANION GAP (test code=GAP) 7 0-20 GLUCOSE (test code=GLU) 132 mg/dL 70-110 BLOOD UREA NITROGEN (test code=BUN) 17 mg/dL 7-18 GLOMERULAR FILTRATION RATE (test code=GFR) 39.9 90-95 Units of measure=ml/min/1.73 m2 CREATININE (test code=CREAT) 1.6 mg/dL 0.6-1.3 CALCIUM (test code=CA) 7.4 mg/dL 8.0-10.5 CBC W/AUTO [id number] 09:42:00* Test Item Value Reference Range Comments WHITE BLOOD CELL (test code=WBC) 3.60 x10 3/uL 4.5-11.0 RED BLOOD CELL (test code=RBC) 2.11 x10 6/uL 3.54-5.02 HEMOGLOBIN (test code=HGB) 6.0 g/dL 11.0-15.0 HEMATOCRIT (test code=HCT) 18.5 % 33.0-45.0 MEAN CELL VOLUME (test code=MCV) 87.7 fL 81.0-99.0 MEAN CELL HGB (test code=MCH) 28.4 pg 27.0-33.0 MEAN CELL HGB CONCETRATION (test code=MCHC) 32.4 g/dL 33.0-37.0 RED CELL DISTRIBUTION WIDTH CV (test code=RDW) 16.4 % 11.5-14.5 RED CELL DISTRIBUTION WIDTH SD (test code=RDW-SD) 46.6 fL 37.0-54.0 PLATELET COUNT (test code=PLT) x10 3/uL 150-400 SEE PLT EST. MEAN PLATELET VOLUME (test code=MPV) 10.0 fL 7.0-9.0 NEUTROPHIL % (test code=NT%) 76.4 % 56.0-77.0 IMMATURE GRANULOCYTE % (test code=IG%) 1.1 % 0.0-2.0 LYMPHOCYTE % (test code=LY%) 10.0 % 14.0-32.0 MONOCYTE % (test code=MO%) 10.8 % 4.8-9.0 EOSINOPHIL % (test code=EO%) 1.4 % 0.3-3.7 BASOPHIL % (test code=BA%) 0.3 % 0.0-2.0 NUCLEATED RBC % (test code=NRBC%) 0.0 % 0-0 NEUTROPHIL # (test code=NT#) 2.75 x10 3/uL 2.0-7.6 IMMATURE GRANULOCYTE # (test code=IG#) 0.04 x10 3/uL 0.00-0.03 LYMPHOCYTE # (test code=LY#) 0.36 x10 3/uL 1.0-3.8 MONOCYTE # (test code=MO#) 0.39 x10 3/uL 0.1-0.8 EOSINOPHIL # (test code=EO#) 0.05 x10 3/uL 0.0-0.2 BASOPHIL # (test code=BA#) 0.01 x10 3/uL 0.0-0.2 NUCLEATED RBC # (test code=NRBC#) 0.00 x10 3/uL 0.0-0.1 MANUAL DIFF REQUIRED (test code=MDIFF) NO PLT [id number] 09:42:00* Test Item Value Reference Range Comments PLATELET ESTIMATE (test code=PLTEST) THOUSAND ADEQUATE CBC W/AUTO [id number] 09:36:00* Test Item Value Reference Range Comments WHITE BLOOD CELL (test code=WBC) 3.60 x10 3/uL 4.5-11.0 RED BLOOD CELL (test code=RBC) 2.11 x10 6/uL 3.54-5.02 HEMOGLOBIN (test code=HGB) 6.0 g/dL 11.0-15.0 HEMATOCRIT (test code=HCT) 18.5 % 33.0-45.0 MEAN CELL VOLUME (test code=MCV) 87.7 fL 81.0-99.0 MEAN CELL HGB (test code=MCH) 28.4 pg 27.0-33.0 MEAN CELL HGB CONCETRATION (test code=MCHC) 32.4 g/dL 33.0-37.0 RED CELL DISTRIBUTION WIDTH CV (test code=RDW) 16.4 % 11.5-14.5 RED CELL DISTRIBUTION WIDTH SD (test code=RDW-SD) 46.6 fL 37.0-54.0 PLATELET COUNT (test code=PLT) x10 3/uL 150-400 SEE PLT EST. MEAN PLATELET VOLUME (test code=MPV) 10.0 fL 7.0-9.0 NEUTROPHIL % (test code=NT%) 76.4 % 56.0-77.0 IMMATURE GRANULOCYTE % (test code=IG%) 1.1 % 0.0-2.0 LYMPHOCYTE % (test code=LY%) 10.0 % 14.0-32.0 MONOCYTE % (test code=MO%) 10.8 % 4.8-9.0 EOSINOPHIL % (test code=EO%) 1.4 % 0.3-3.7 BASOPHIL % (test code=BA%) 0.3 % 0.0-2.0 NUCLEATED RBC % (test code=NRBC%) 0.0 % 0-0 NEUTROPHIL # (test code=NT#) 2.75 x10 3/uL 2.0-7.6 IMMATURE GRANULOCYTE # (test code=IG#) 0.04 x10 3/uL 0.00-0.03 LYMPHOCYTE # (test code=LY#) 0.36 x10 3/uL 1.0-3.8 MONOCYTE # (test code=MO#) 0.39 x10 3/uL 0.1-0.8 EOSINOPHIL # (test code=EO#) 0.05 x10 3/uL 0.0-0.2 BASOPHIL # (test code=BA#) 0.01 x10 3/uL 0.0-0.2 NUCLEATED RBC # (test code=NRBC#) 0.00 x10 3/uL 0.0-0.1 MANUAL DIFF REQUIRED (test code=MDIFF) NO PLT [id number] 09:36:00* Test Item Value Reference Range Comments PLATELET ESTIMATE (test code=PLTEST) THOUSAND ADEQUATE [id number] 05:41:00* Test Item Value Reference Range Comments GLUBED (test code=GLUBED) 146 MG/DL 70-110 Performed by certified wireline field operator at [facility] [id number] 00:12:00* Test Item Value Reference Range Comments GLUBED (test code=GLUBED) 193 MG/DL 70-110 Performed by certified wireline field operator at [facility] [id number] 20:36:00* Test Item Value Reference Range Comments GLUBED (test code=GLUBED) 215 MG/DL 70-110 Performed by certified wireline field operator at [facility] [id number] 18:35:00* Test Item Value Reference Range Comments GLUBED (test code=GLUBED) 147 MG/DL 70-110 Performed by certified wireline field operator at [facility] [id number] 17:07:00* Test Item Value Reference Range Comments GLUBED (test code=GLUBED) 153 MG/DL 70-110 Performed by certified wireline field operator at [facility] CBC W/AUTO [id number] 14:13:00* Test Item Value Reference Range Comments WHITE BLOOD CELL (test code=WBC) 3.33 x10 3/uL 4.5-11.0 RED BLOOD CELL (test code=RBC) 2.36 x10 6/uL 3.54-5.02 HEMOGLOBIN (test code=HGB) 6.6 g/dL 11.0-15.0 HEMATOCRIT (test code=HCT) 20.2 % 33.0-45.0 MEAN CELL VOLUME (test code=MCV) 85.6 fL 81.0-99.0 MEAN CELL HGB (test code=MCH) 28.0 pg 27.0-33.0 MEAN CELL HGB CONCETRATION (test code=MCHC) 32.7 g/dL 33.0-37.0 RED CELL DISTRIBUTION WIDTH CV (test code=RDW) 15.8 % 11.5-14.5 RED CELL DISTRIBUTION WIDTH SD (test code=RDW-SD) 45.0 fL 37.0-54.0 PLATELET COUNT (test code=PLT) 100 x10 3/uL 150-400 MEAN PLATELET VOLUME (test code=MPV) 10.3 fL 7.0-9.0 NEUTROPHIL % (test code=NT%) 79.9 % 56.0-77.0 IMMATURE GRANULOCYTE % (test code=IG%) 0.6 % 0.0-2.0 LYMPHOCYTE % (test code=LY%) 10.2 % 14.0-32.0 MONOCYTE % (test code=MO%) 8.1 % 4.8-9.0 EOSINOPHIL % (test code=EO%) 0.9 % 0.3-3.7 BASOPHIL % (test code=BA%) 0.3 % 0.0-2.0 NUCLEATED RBC % (test code=NRBC%) 0.0 % 0-0 NEUTROPHIL # (test code=NT#) 2.66 x10 3/uL 2.0-7.6 IMMATURE GRANULOCYTE # (test code=IG#) 0.02 x10 3/uL 0.00-0.03 LYMPHOCYTE # (test code=LY#) 0.34 x10 3/uL 1.0-3.8 MONOCYTE # (test code=MO#) 0.27 x10 3/uL 0.1-0.8 EOSINOPHIL # (test code=EO#) 0.03 x10 3/uL 0.0-0.2 BASOPHIL # (test code=BA#) 0.01 x10 3/uL 0.0-0.2 NUCLEATED RBC # (test code=NRBC#) 0.00 x10 3/uL 0.0-0.1 MANUAL DIFF REQUIRED (test code=MDIFF) NO SLIDE REVIEWED, CONSISTENT WITH AUTO DIFF. PLT [id number] 14:13:00* Test Item Value Reference Range Comments PLATELET ESTIMATE (test code=PLTEST) 108-135 THOUSAND ADEQUATE PLATELET MORPHOLOGY (test code=PLTMORPH) LARGE PLATELETS LARGE PLTS SEEN CBC W/AUTO [id number] 14:10:00* Test Item Value Reference Range Comments WHITE BLOOD CELL (test code=WBC) 3.33 x10 3/uL 4.5-11.0 RED BLOOD CELL (test code=RBC) 2.36 x10 6/uL 3.54-5.02 HEMOGLOBIN (test code=HGB) 6.6 g/dL 11.0-15.0 HEMATOCRIT (test code=HCT) 20.2 % 33.0-45.0 MEAN CELL VOLUME (test code=MCV) 85.6 fL 81.0-99.0 MEAN CELL HGB (test code=MCH) 28.0 pg 27.0-33.0 MEAN CELL HGB CONCETRATION (test code=MCHC) 32.7 g/dL 33.0-37.0 RED CELL DISTRIBUTION WIDTH CV (test code=RDW) 15.8 % 11.5-14.5 RED CELL DISTRIBUTION WIDTH SD (test code=RDW-SD) 45.0 fL 37.0-54.0 PLATELET COUNT (test code=PLT) 100 x10 3/uL 150-400 MEAN PLATELET VOLUME (test code=MPV) 10.3 fL 7.0-9.0 NEUTROPHIL % (test code=NT%) 79.9 % 56.0-77.0 IMMATURE GRANULOCYTE % (test code=IG%) 0.6 % 0.0-2.0 LYMPHOCYTE % (test code=LY%) 10.2 % 14.0-32.0 MONOCYTE % (test code=MO%) 8.1 % 4.8-9.0 EOSINOPHIL % (test code=EO%) 0.9 % 0.3-3.7 BASOPHIL % (test code=BA%) 0.3 % 0.0-2.0 NUCLEATED RBC % (test code=NRBC%) 0.0 % 0-0 NEUTROPHIL # (test code=NT#) 2.66 x10 3/uL 2.0-7.6 IMMATURE GRANULOCYTE # (test code=IG#) 0.02 x10 3/uL 0.00-0.03 LYMPHOCYTE # (test code=LY#) 0.34 x10 3/uL 1.0-3.8 MONOCYTE # (test code=MO#) 0.27 x10 3/uL 0.1-0.8 EOSINOPHIL # (test code=EO#) 0.03 x10 3/uL 0.0-0.2 BASOPHIL # (test code=BA#) 0.01 x10 3/uL 0.0-0.2 NUCLEATED RBC # (test code=NRBC#) 0.00 x10 3/uL 0.0-0.1 MANUAL DIFF REQUIRED (test code=MDIFF) NO SLIDE REVIEWED, CONSISTENT WITH AUTO DIFF. PLT [id number] 14:10:00* Test Item Value Reference Range Comments PLATELET ESTIMATE (test code=PLTEST) THOUSAND ADEQUATE CBC W/AUTO [id number] 14:10:00* Test Item Value Reference Range Comments WHITE BLOOD CELL (test code=WBC) 3.33 x10 3/uL 4.5-11.0 RED BLOOD CELL (test code=RBC) 2.36 x10 6/uL 3.54-5.02 HEMOGLOBIN (test code=HGB) 6.6 g/dL 11.0-15.0 HEMATOCRIT (test code=HCT) 20.2 % 33.0-45.0 MEAN CELL VOLUME (test code=MCV) 85.6 fL 81.0-99.0 MEAN CELL HGB (test code=MCH) 28.0 pg 27.0-33.0 MEAN CELL HGB CONCETRATION (test code=MCHC) 32.7 g/dL 33.0-37.0 RED CELL DISTRIBUTION WIDTH CV (test code=RDW) 15.8 % 11.5-14.5 RED CELL DISTRIBUTION WIDTH SD (test code=RDW-SD) 45.0 fL 37.0-54.0 PLATELET COUNT (test code=PLT) 100 x10 3/uL 150-400 MEAN PLATELET VOLUME (test code=MPV) 10.3 fL 7.0-9.0 NEUTROPHIL % (test code=NT%) 79.9 % 56.0-77.0 IMMATURE GRANULOCYTE % (test code=IG%) 0.6 % 0.0-2.0 LYMPHOCYTE % (test code=LY%) 10.2 % 14.0-32.0 MONOCYTE % (test code=MO%) 8.1 % 4.8-9.0 EOSINOPHIL % (test code=EO%) 0.9 % 0.3-3.7 BASOPHIL % (test code=BA%) 0.3 % 0.0-2.0 NUCLEATED RBC % (test code=NRBC%) 0.0 % 0-0 NEUTROPHIL # (test code=NT#) 2.66 x10 3/uL 2.0-7.6 IMMATURE GRANULOCYTE # (test code=IG#) 0.02 x10 3/uL 0.00-0.03 LYMPHOCYTE # (test code=LY#) 0.34 x10 3/uL 1.0-3.8 MONOCYTE # (test code=MO#) 0.27 x10 3/uL 0.1-0.8 EOSINOPHIL # (test code=EO#) 0.03 x10 3/uL 0.0-0.2 BASOPHIL # (test code=BA#) 0.01 x10 3/uL 0.0-0.2 NUCLEATED RBC # (test code=NRBC#) 0.00 x10 3/uL 0.0-0.1 MANUAL DIFF REQUIRED (test code=MDIFF) NO SLIDE REVIEWED, CONSISTENT WITH AUTO DIFF. PLT [id number] 14:10:00* Test Item Value Reference Range Comments PLATELET ESTIMATE (test code=PLTEST) THOUSAND ADEQUATE CBC W/AUTO [id number] 13:59:00* Test Item Value Reference Range Comments WHITE BLOOD CELL (test code=WBC) 3.33 x10 3/uL 4.5-11.0 RED BLOOD CELL (test code=RBC) 2.36 x10 6/uL 3.54-5.02 HEMOGLOBIN (test code=HGB) 6.6 g/dL 11.0-15.0 HEMATOCRIT (test code=HCT) 20.2 % 33.0-45.0 MEAN CELL VOLUME (test code=MCV) 85.6 fL 81.0-99.0 MEAN CELL HGB (test code=MCH) 28.0 pg 27.0-33.0 MEAN CELL HGB CONCETRATION (test code=MCHC) 32.7 g/dL 33.0-37.0 RED CELL DISTRIBUTION WIDTH CV (test code=RDW) 15.8 % 11.5-14.5 RED CELL DISTRIBUTION WIDTH SD (test code=RDW-SD) 45.0 fL 37.0-54.0 PLATELET COUNT (test code=PLT) 100 x10 3/uL 150-400 MEAN PLATELET VOLUME (test code=MPV) 10.3 fL 7.0-9.0 NEUTROPHIL % (test code=NT%) % 56.0-77.0 LYMPHOCYTE % (test code=LY%) % 14.0-32.0 NEUTROPHIL # (test code=NT#) x10 3/uL 2.0-7.6 LYMPHOCYTE # (test code=LY#) x10 3/uL 1.0-3.8 MANUAL DIFF REQUIRED (test code=MDIFF) BASIC METABOLIC [id number] 13:10:00* Test Item Value Reference Range Comments SODIUM (test code=NA) 134 mEq/L 134-147 POTASSIUM (test code=K) 3.7 mEq/L 3.4-5.0 CHLORIDE (test code=CL) 98 mEq/L 100-108 CARBON DIOXIDE (test code=CO2) 30 mEq/L 21-33 ANION GAP (test code=GAP) 10 0-20 GLUCOSE (test code=GLU) 154 mg/dL 70-110 BLOOD UREA NITROGEN (test code=BUN) 24 mg/dL 7-18 GLOMERULAR FILTRATION RATE (test code=GFR) 27.6 90-95 Units of measure=ml/min/1.73 m2 CREATININE (test code=CREAT) 2.2 mg/dL 0.6-1.3 CALCIUM (test code=CA) 7.8 mg/dL 8.0-10.5 [id number] 13:10:00* Test Item Value Reference Range Comments PHOSPHOROUS (test code=PHOS) 0.2 MG/DL 2.5-4.9 [id number] 13:10:00* Test Item Value Reference Range Comments MAGNESIUM (test code=MAG) 1.60 mg/dL 1.8-2.4 [id number] 09:12:00* Test Item Value Reference Range Comments GLUBED (test code=GLUBED) 90 MG/DL 70-110 Performed by certified wireline field operator at [facility] [id number] 05:06:00* Test Item Value Reference Range Comments GLUBED (test code=GLUBED) 93 MG/DL 70-110 Performed by certified wireline field operator at [facility] [id number] 00:53:00* Test Item Value Reference Range Comments GLUBED (test code=GLUBED) 117 MG/DL 70-110 Performed by certified wireline field operator at [facility] [id number] 19:52:00* Test Item Value Reference Range Comments GLUBED (test code=GLUBED) 136 MG/DL 70-110 Performed by certified wireline field operator at [facility] [id number] 18:20:00* Test Item Value Reference Range Comments GLUBED (test code=GLUBED) 143 MG/DL 70-110 Performed by certified wireline field operator at [facility] [id number] 06:50:00* Test Item Value Reference Range Comments GLUBED (test code=GLUBED) 213 MG/DL 70-110 Performed by certified wireline field operator at [facility] [id number] 06:19:00* Test Item Value Reference Range Comments GLUBED (test code=GLUBED) 150 MG/DL 70-110 Performed by certified wireline field operator at [facility] [id number] 23:38:00* Test Item Value Reference Range Comments GLUBED (test code=GLUBED) 193 MG/DL 70-110 Performed by certified wireline field operator at [facility] [id number] 20:16:00* Test Item Value Reference Range Comments GLUBED (test code=GLUBED) 111 MG/DL 70-110 Performed by certified wireline field operator at [facility] [id number] 11:14:00* Test Item Value Reference Range Comments GLUBED (test code=GLUBED) 130 MG/DL 70-110 Performed by certified wireline field operator at [facility] [id number] 09:26:00* Test Item Value Reference Range Comments GLUBED (test code=GLUBED) 122 MG/DL 70-110 Performed by certified wireline field operator at [facility] [id number] 06:26:00* Test Item Value Reference Range Comments GLUBED (test code=GLUBED) 117 MG/DL 70-110 Performed by certified wireline field operator at [facility] [id number] 23:50:00* Test Item Value Reference Range Comments GLUBED (test code=GLUBED) 142 MG/DL 70-110 Performed by certified wireline field operator at [facility] [id number] 18:42:00* Test Item Value Reference Range Comments GLUBED (test code=GLUBED) 115 MG/DL 70-110 Performed by certified wireline field operator at [facility] [id number] 16:25:00* Test Item Value Reference Range Comments GLUBED (test code=GLUBED) 147 MG/DL 70-110 Performed by certified wireline field operator at [facility] - CTA ABD PEL W [id number] 11:47:00 Name: ERINN JUNE [facility] : 1960 Age/S: 59 / F [address] [place] [address] Unit #: [id number] Loc: [facility] [place] [address] Phys: Reynaldo Vega MD Acct: [id number] Dis Date: Status: ADM IN PHONE #: [phone] Exam Date: 09/09/2019 0845 FAX #: [phone] Reason: severe peptic ulcer dz, concern for mesenteric EXAMS: CPT CODE: [id number] CTA ABD PEL W CONT 23538 PROCEDURE: CTA ABDOMEN AND PELVIS INDICATION: severe peptic ulcer disease, concern for mesenteric ischemia. [age]-year-old female with history of end-stage renal disease. COMPARISON: CT of November 2017 TECHNIQUE: CTA of the abdominal aorta and pelvis was performed. Multiplanar MIP and 3-D angiographic reconstructions are reviewed. Helical imaging performed diaphragm through the symphysis during arterial and mesenteric venous phases. IV CONTRAST: 100 mL Isovue 370 GI CONTRAST: None. CT imaging performed at this location utilizes radiation dose optimization techniques which include one or more of the following: -Automated exposure control -Adjustment of the mA and/or kV according to patient size -Use of iterative reconstruction technique CT Radiation Dose DLP 1221.60 mGy-cm FINDINGS: AORTA: Moderate atherosclerosis predominantly infr arenal abdominal aorta with calcified and fibrofatty plaque. No aneurysm, dissection or flow-limiting stenosis. Mild right and moderate left common iliac disease without flow-limiting stenosis. The external iliac arteries are patent. Moderate bilateral common femoral and proximal superficial femoral artery disease. Mild long segment stenosis of the right femoral artery. Mild disease of the proximal renal arteries. MESENTERIC C IRCULATION: The celiac, superior mesenteric and inferior mesenteric arteri es are widely patent. No gross branch vessel disease. The mesenteric venou s circulation is patent. LOWER CHEST: There are small bilateral pl eural effusions. Partial compressive atelectasis of the lower lobes. Addit ional indistinct opacities in aerated portions of the lower lobes and righ t middle lobe. Mild cardiomegaly with concentric left ventricular hypertro phy. Mild coronary arterial calcifications. No pericardial effusion. LIVER: Normal. BILIARY TREE: No biliary dilatation. GALLBLADDER: Contracted, otherwise unremarkable. PAGE 1 Signed Report (CONTINUED) Name: ERINN JUNE [facility] : 1960 Age/S: 59 / F [address] [place] [address] Unit #: [id number] Loc: [facility] [address] Phys: Reynaldo Vega MD Acct: [id number] Dis Date: Status: ADM IN PHONE #: [phone] Exam D ate: 09/09/2019 0845 FAX #: [phone] Reason: sever e peptic ulcer dz, concern for mesenteric EXAMS: CPT CODE: [id number] CTA ABD PEL W CONT 58084 <Continued> SPLEEN: Normal. PANCREAS: Normal. ADRENALS: Normal. KIDNEYS: Atrophic kidneys demonstrating poor parenchymal enhancement compatible with end-stage renal disease. No gross mass. BOWEL: Assessment limited by paucity of abdominal fat. The partially contracted stomach is unremarkable. The presence or absence of pathologic gastric antral thickening cannot be stated with certainty. The stomach and small bowel are unremarkable. Scattered fecal material throughout the colon. Scattered colonic diverticula. No pathologic wall thickening. Grossly preserved bowel enhancement. PERITONEUM: Moderate volume ascites. No focal fluid collection. No free air. RETROPERITONEUM: No adenopathy. PELVIS: Uterus is enlarged, lobulated and largely replaced with multiple mass lesions, moderately hyperattenuating. Several contain coarse calcifications. Exophytic mass at uterine fundus measuring 4.5 x 3.3 x 4.2 cm. The ovaries are not visualized. The urinary bladder is unremarkable. MUSCULOSKELETAL: Diffuse sclerosis throughout the visualized skeleton. Mild degenerative endplate changes. No acute skeletal abnormality. IMPRESSION: 1. Atherosclerosis aortoiliac system without flow-limiting stenosis or aneurysm. 2. Patent mesenteric circulation. 3. Limited survey of bowel without seco ndary findings of mesenteric ischemia. 4. Moderate volume ascite s and generalized subcutaneous edema. 5. Small bilateral pleural effusio ns 6. Partial compressive atelectasis of the lower lobes with additional ill-defined opacities in aerated portions. Edema and pneumonitis in the differential. 7. Enlarged, fibroid uterus. 8. Skeletal changes compatible with renal osteodystrophy. PAGE 2 Signed Report (CONTINUED) Name: ERINN JUNE [facility] : 1960 Age/S: 59 / F [address] [place] [address] Unit #: [id number] Loc: [place] [address] Phys: Reynaldo Vega MD Acct: [id number] Dis Date: Status: ADM IN PHONE #: [phone] Exam Date: 020 0845 FAX #: [phone] Reason: severe peptic ulc er dz, concern for mesenteric EXAMS: CPT CODE: [id number] CTA ABD PEL W CONT [id number] <Continued> SL: [id number] at 1147 Reported and signed by: Rogers Gamble M.D. CC: Reynaldo Vega; Kayley Dickens MD Technologist:Fito Dockery, RT(R)(CT) CTDI: DLP: Trnscb Date/Time: 09/09/2019 (1147) PeteyL Orig Print D/T: S: 09/09/2019 (7378) PAGE 3 Signed Report GLUBED 2019-09-09 08:12:00* Test Item Value Reference Range Comments GLUBED (test code=GLUBED) 76 MG/DL 70-110 Performed by certified wireline field operator at [facility] [id number] 05:58:00* Test Item Value Reference Range Comments GLUBED (test code=GLUBED) 134 MG/DL 70-110 Performed by certified wireline field operator at [facility] [id number] 01:22:00* Test Item Value Reference Range Comments GLUBED (test code=GLUBED) 116 MG/DL 70-110 Performed by certified wireline field operator at [facility] [id number] 17:54:00* Test Item Value Reference Range Comments GLUBED (test code=GLUBED) 94 MG/DL 70-110 Performed by certified wireline field operator at [facility] [id number] 15:07:00* Test Item Value Reference Range Comments GLUBED (test code=GLUBED) 106 MG/DL 70-110 Performed by certified wireline field operator at [facility] [id number] 11:12:00* Test Item Value Reference Range Comments GLUBED (test code=GLUBED) 168 MG/DL 70-110 Performed by certified wireline field operator at [facility] CBC W/AUTO [id number] 09:12:00* Test Item Value Reference Range Comments WHITE BLOOD CELL (test code=WBC) 3.06 x10 3/uL 4.5-11.0 RED BLOOD CELL (test code=RBC) 2.96 x10 6/uL 3.54-5.02 HEMOGLOBIN (test code=HGB) 8.1 g/dL 11.0-15.0 HEMATOCRIT (test code=HCT) 24.2 % 33.0-45.0 MEAN CELL VOLUME (test code=MCV) 81.8 fL 81.0-99.0 MEAN CELL HGB (test code=MCH) 27.4 pg 27.0-33.0 MEAN CELL HGB CONCETRATION (test code=MCHC) 33.5 g/dL 33.0-37.0 RED CELL DISTRIBUTION WIDTH CV (test code=RDW) 14.0 % 11.5-14.5 RED CELL DISTRIBUTION WIDTH SD (test code=RDW-SD) 41.5 fL 37.0-54.0 PLATELET COUNT (test code=PLT) 135 x10 3/uL 150-400 MEAN PLATELET VOLUME (test code=MPV) 11.3 fL 7.0-9.0 NEUTROPHIL % (test code=NT%) 78.2 % 56.0-77.0 IMMATURE GRANULOCYTE % (test code=IG%) 0.3 % 0.0-2.0 LYMPHOCYTE % (test code=LY%) 13.7 % 14.0-32.0 MONOCYTE % (test code=MO%) 6.2 % 4.8-9.0 EOSINOPHIL % (test code=EO%) 1.3 % 0.3-3.7 BASOPHIL % (test code=BA%) 0.3 % 0.0-2.0 NUCLEATED RBC % (test code=NRBC%) 0.0 % 0-0 NEUTROPHIL # (test code=NT#) 2.39 x10 3/uL 2.0-7.6 IMMATURE GRANULOCYTE # (test code=IG#) 0.01 x10 3/uL 0.00-0.03 LYMPHOCYTE # (test code=LY#) 0.42 x10 3/uL 1.0-3.8 MONOCYTE # (test code=MO#) 0.19 x10 3/uL 0.1-0.8 EOSINOPHIL # (test code=EO#) 0.04 x10 3/uL 0.0-0.2 BASOPHIL # (test code=BA#) 0.01 x10 3/uL 0.0-0.2 NUCLEATED RBC # (test code=NRBC#) 0.00 x10 3/uL 0.0-0.1 MANUAL DIFF REQUIRED (test code=MDIFF) NO SLIDE REVIEWED, CONSISTENT WITH AUTO DIFF. BASIC METABOLIC [id number] 05:28:00* Test Item Value Reference Range Comments SODIUM (test code=NA) 126 mEq/L 134-147 POTASSIUM (test code=K) 3.4 mEq/L 3.4-5.0 CHLORIDE (test code=CL) 94 mEq/L 100-108 CARBON DIOXIDE (test code=CO2) 24 mEq/L 21-33 ANION GAP (test code=GAP) 11 0-20 GLUCOSE (test code=GLU) 126 mg/dL 70-110 BLOOD UREA NITROGEN (test code=BUN) 35 mg/dL 7-18 GLOMERULAR FILTRATION RATE (test code=GFR) 25.0 90-95 Units of measure=ml/min/1.73 m2 CREATININE (test code=CREAT) 2.4 mg/dL 0.6-1.3 CALCIUM (test code=CA) 8.9 mg/dL 8.0-10.5 [id number] 05:24:00* Test Item Value Reference Range Comments GLUBED (test code=GLUBED) 109 MG/DL 70-110 Performed by certified wireline field operator at [facility] PROTHROMBIN [id number] 05:22:00* Test Item Value Reference Range Comments PROTHROMBIN TIME PATIENT (test code=PTP) 10.7 SECONDS 9.3-12.9 INTERNATIONAL NORMAL RATIO (test code=INR) 1.0 0.8-1.2 TARGET INR BY INDICATION Indication INR1. Prophylaxis of venous thrombosis 2.0 - 3.0 (orthopedic surgery), Prophylaxis of venous thrombosis (other than high-risk surgery), Treatment of Deep Vein Thrombosis/Pulmonary Embolism, Prevention of systemic embolism - Tissue heart valves, Acute Myocardial Infarction (to prevent systemic embolism), Valvular heart disease, Atrial Fibrillation, Bileaflet mechanical valve in aortic position.2. Mechanical prosthetic valves (high risk), 2.5 - 3.5 Presence of Lupus Anticoagulant or Antiphospholipid Antibodies, Prevention of systemic embolism - Acute Myocardial Infarction (to prevent recurrent infarct). THROMBOPLASTIN TIME [id number] 05:22:00* Test Item Value Reference Range Comments THROMBOPLASTIN TIME PARTIAL (test code=PTT) 32.0 Seconds 25.0-39.5 Therapeutic Range: 50.4 - 88.3 Seconds Effective 12/17/2018 CBC W/AUTO [id number] 05:06:00* Test Item Value Reference Range Comments WHITE BLOOD CELL (test code=WBC) 3.06 x10 3/uL 4.5-11.0 RED BLOOD CELL (test code=RBC) 2.96 x10 6/uL 3.54-5.02 HEMOGLOBIN (test code=HGB) 8.1 g/dL 11.0-15.0 HEMATOCRIT (test code=HCT) 24.2 % 33.0-45.0 MEAN CELL VOLUME (test code=MCV) 81.8 fL 81.0-99.0 MEAN CELL HGB (test code=MCH) 27.4 pg 27.0-33.0 MEAN CELL HGB CONCETRATION (test code=MCHC) 33.5 g/dL 33.0-37.0 RED CELL DISTRIBUTION WIDTH CV (test code=RDW) 14.0 % 11.5-14.5 RED CELL DISTRIBUTION WIDTH SD (test code=RDW-SD) 41.5 fL 37.0-54.0 PLATELET COUNT (test code=PLT) 135 x10 3/uL 150-400 MEAN PLATELET VOLUME (test code=MPV) 11.3 fL 7.0-9.0 NEUTROPHIL % (test code=NT%) % 56.0-77.0 LYMPHOCYTE % (test code=LY%) % 14.0-32.0 NEUTROPHIL # (test code=NT#) x10 3/uL 2.0-7.6 LYMPHOCYTE # (test code=LY#) x10 3/uL 1.0-3.8 MANUAL DIFF REQUIRED (test code=MDIFF) [id number] 23:36:00* Test Item Value Reference Range Comments GLUBED (test code=GLUBED) 183 MG/DL 70-110 Performed by certified wireline field operator at [facility] [id number] 21:36:00* Test Item Value Reference Range Comments GLUBED (test code=GLUBED) 207 MG/DL 70-110 Performed by certified wireline field operator at [facility] [id number] 16:28:00* Test Item Value Reference Range Comments GLUBED (test code=GLUBED) 346 MG/DL 70-110 Performed by certified wireline field operator at [facility] [id number] 12:52:00* Test Item Value Reference Range Comments GLUBED (test code=GLUBED) 372 MG/DL 70-110 Performed by certified wireline field operator at [facility] [id number] 07:48:00* Test Item Value Reference Range Comments GLUBED (test code=GLUBED) 258 MG/DL 70-110 Performed by certified wireline field operator at [facility] [id number] 06:37:00* Test Item Value Reference Range Comments GLUBED (test code=GLUBED) 297 MG/DL 70-110 Performed by certified wireline field operator at [facility] CBC W/AUTO [id number] 06:24:00* Test Item Value Reference Range Comments WHITE BLOOD CELL (test code=WBC) 3.69 x10 3/uL 4.5-11.0 RED BLOOD CELL (test code=RBC) 3.61 x10 6/uL 3.54-5.02 HEMOGLOBIN (test code=HGB) 9.8 g/dL 11.0-15.0 HEMATOCRIT (test code=HCT) 29.3 % 33.0-45.0 MEAN CELL VOLUME (test code=MCV) 81.2 fL 81.0-99.0 MEAN CELL HGB (test code=MCH) 27.1 pg 27.0-33.0 MEAN CELL HGB CONCETRATION (test code=MCHC) 33.4 g/dL 33.0-37.0 RED CELL DISTRIBUTION WIDTH CV (test code=RDW) 14.1 % 11.5-14.5 RED CELL DISTRIBUTION WIDTH SD (test code=RDW-SD) 41.5 fL 37.0-54.0 PLATELET COUNT (test code=PLT) 150 x10 3/uL 150-400 MEAN PLATELET VOLUME (test code=MPV) 11.7 fL 7.0-9.0 NEUTROPHIL % (test code=NT%) 81.0 % 56.0-77.0 IMMATURE GRANULOCYTE % (test code=IG%) 0.3 % 0.0-2.0 LYMPHOCYTE % (test code=LY%) 11.9 % 14.0-32.0 MONOCYTE % (test code=MO%) 6.0 % 4.8-9.0 EOSINOPHIL % (test code=EO%) 0.8 % 0.3-3.7 BASOPHIL % (test code=BA%) 0.0 % 0.0-2.0 NUCLEATED RBC % (test code=NRBC%) 0.0 % 0-0 NEUTROPHIL # (test code=NT#) 2.99 x10 3/uL 2.0-7.6 IMMATURE GRANULOCYTE # (test code=IG#) 0.01 x10 3/uL 0.00-0.03 LYMPHOCYTE # (test code=LY#) 0.44 x10 3/uL 1.0-3.8 MONOCYTE # (test code=MO#) 0.22 x10 3/uL 0.1-0.8 EOSINOPHIL # (test code=EO#) 0.03 x10 3/uL 0.0-0.2 BASOPHIL # (test code=BA#) 0.00 x10 3/uL 0.0-0.2 NUCLEATED RBC # (test code=NRBC#) 0.00 x10 3/uL 0.0-0.1 MANUAL DIFF REQUIRED (test code=MDIFF) NO SLIDE REVIEWED, CONSISTENT WITH AUTO DIFF. BASIC METABOLIC [id number] 06:05:00* Test Item Value Reference Range Comments SODIUM (test code=NA) 128 mEq/L 134-147 POTASSIUM (test code=K) 3.4 mEq/L 3.4-5.0 CHLORIDE (test code=CL) 94 mEq/L 100-108 CARBON DIOXIDE (test code=CO2) 26 mEq/L 21-33 ANION GAP (test code=GAP) 11 0-20 GLUCOSE (test code=GLU) 231 mg/dL 70-110 BLOOD UREA NITROGEN (test code=BUN) 32 mg/dL 7-18 GLOMERULAR FILTRATION RATE (test code=GFR) 30.9 90-95 Units of measure=ml/min/1.73 m2 CREATININE (test code=CREAT) 2.0 mg/dL 0.6-1.3 CALCIUM (test code=CA) 9.0 mg/dL 8.0-10.5 CBC W/AUTO [id number] 05:46:00* Test Item Value Reference Range Comments WHITE BLOOD CELL (test code=WBC) 3.69 x10 3/uL 4.5-11.0 RED BLOOD CELL (test code=RBC) 3.61 x10 6/uL 3.54-5.02 HEMOGLOBIN (test code=HGB) 9.8 g/dL 11.0-15.0 HEMATOCRIT (test code=HCT) 29.3 % 33.0-45.0 MEAN CELL VOLUME (test code=MCV) 81.2 fL 81.0-99.0 MEAN CELL HGB (test code=MCH) 27.1 pg 27.0-33.0 MEAN CELL HGB CONCETRATION (test code=MCHC) 33.4 g/dL 33.0-37.0 RED CELL DISTRIBUTION WIDTH CV (test code=RDW) 14.1 % 11.5-14.5 RED CELL DISTRIBUTION WIDTH SD (test code=RDW-SD) 41.5 fL 37.0-54.0 PLATELET COUNT (test code=PLT) 150 x10 3/uL 150-400 MEAN PLATELET VOLUME (test code=MPV) 11.7 fL 7.0-9.0 NEUTROPHIL % (test code=NT%) % 56.0-77.0 LYMPHOCYTE % (test code=LY%) % 14.0-32.0 NEUTROPHIL # (test code=NT#) x10 3/uL 2.0-7.6 LYMPHOCYTE # (test code=LY#) x10 3/uL 1.0-3.8 MANUAL DIFF REQUIRED (test code=MDIFF) [id number] 19:44:00* Test Item Value Reference Range Comments GLUBED (test code=GLUBED) 229 MG/DL 70-110 Performed by certified wireline field operator at [facility] [id number] 17:44:00* Test Item Value Reference Range Comments GLUBED (test code=GLUBED) 281 MG/DL 70-110 Performed by certified wireline field operator at [facility] CBC W/AUTO [id number] 13:20:00* Test Item Value Reference Range Comments WHITE BLOOD CELL (test code=WBC) 3.91 x10 3/uL 4.5-11.0 RED BLOOD CELL (test code=RBC) 3.98 x10 6/uL 3.54-5.02 HEMOGLOBIN (test code=HGB) 10.9 g/dL 11.0-15.0 HEMATOCRIT (test code=HCT) 32.6 % 33.0-45.0 MEAN CELL VOLUME (test code=MCV) 81.9 fL 81.0-99.0 MEAN CELL HGB (test code=MCH) 27.4 pg 27.0-33.0 MEAN CELL HGB CONCETRATION (test code=MCHC) 33.4 g/dL 33.0-37.0 RED CELL DISTRIBUTION WIDTH CV (test code=RDW) 14.4 % 11.5-14.5 RED CELL DISTRIBUTION WIDTH SD (test code=RDW-SD) 42.6 fL 37.0-54.0 PLATELET COUNT (test code=PLT) 110 x10 3/uL 150-400 MEAN PLATELET VOLUME (test code=MPV) 10.8 fL 7.0-9.0 NEUTROPHIL % (test code=NT%) 82.8 % 56.0-77.0 IMMATURE GRANULOCYTE % (test code=IG%) 0.5 % 0.0-2.0 LYMPHOCYTE % (test code=LY%) 10.7 % 14.0-32.0 MONOCYTE % (test code=MO%) 4.9 % 4.8-9.0 EOSINOPHIL % (test code=EO%) 0.8 % 0.3-3.7 BASOPHIL % (test code=BA%) 0.3 % 0.0-2.0 NUCLEATED RBC % (test code=NRBC%) 0.0 % 0-0 NEUTROPHIL # (test code=NT#) 3.24 x10 3/uL 2.0-7.6 IMMATURE GRANULOCYTE # (test code=IG#) 0.02 x10 3/uL 0.00-0.03 LYMPHOCYTE # (test code=LY#) 0.42 x10 3/uL 1.0-3.8 MONOCYTE # (test code=MO#) 0.19 x10 3/uL 0.1-0.8 EOSINOPHIL # (test code=EO#) 0.03 x10 3/uL 0.0-0.2 BASOPHIL # (test code=BA#) 0.01 x10 3/uL 0.0-0.2 NUCLEATED RBC # (test code=NRBC#) 0.00 x10 3/uL 0.0-0.1 MANUAL DIFF REQUIRED (test code=MDIFF) NO SLIDE REVIEWED, CONSISTENT WITH AUTO DIFF. CBC W/AUTO [id number] 05:52:00* Test Item Value Reference Range Comments WHITE BLOOD CELL (test code=WBC) 3.91 x10 3/uL 4.5-11.0 RED BLOOD CELL (test code=RBC) 3.98 x10 6/uL 3.54-5.02 HEMOGLOBIN (test code=HGB) 10.9 g/dL 11.0-15.0 HEMATOCRIT (test code=HCT) 32.6 % 33.0-45.0 MEAN CELL VOLUME (test code=MCV) 81.9 fL 81.0-99.0 MEAN CELL HGB (test code=MCH) 27.4 pg 27.0-33.0 MEAN CELL HGB CONCETRATION (test code=MCHC) 33.4 g/dL 33.0-37.0 RED CELL DISTRIBUTION WIDTH CV (test code=RDW) 14.4 % 11.5-14.5 RED CELL DISTRIBUTION WIDTH SD (test code=RDW-SD) 42.6 fL 37.0-54.0 PLATELET COUNT (test code=PLT) 110 x10 3/uL 150-400 MEAN PLATELET VOLUME (test code=MPV) 10.8 fL 7.0-9.0 NEUTROPHIL % (test code=NT%) % 56.0-77.0 LYMPHOCYTE % (test code=LY%) % 14.0-32.0 NEUTROPHIL # (test code=NT#) x10 3/uL 2.0-7.6 LYMPHOCYTE # (test code=LY#) x10 3/uL 1.0-3.8 MANUAL DIFF REQUIRED (test code=MDIFF) BASIC METABOLIC [id number] 04:54:00* Test Item Value Reference Range Comments SODIUM (test code=NA) 133 mEq/L 134-147 POTASSIUM (test code=K) 3.6 mEq/L 3.4-5.0 CHLORIDE (test code=CL) 102 mEq/L 100-108 CARBON DIOXIDE (test code=CO2) 27 mEq/L 21-33 ANION GAP (test code=GAP) 8 0-20 GLUCOSE (test code=GLU) 169 mg/dL 70-110 BLOOD UREA NITROGEN (test code=BUN) 24 mg/dL 7-18 GLOMERULAR FILTRATION RATE (test code=GFR) 46.6 90-95 Units of measure=ml/min/1.73 m2 CREATININE (test code=CREAT) 1.4 mg/dL 0.6-1.3 CALCIUM (test code=CA) 8.2 mg/dL 8.0-10.5 [id number] 04:20:00* Test Item Value Reference Range Comments GLUBED (test code=GLUBED) 141 MG/DL 70-110 Performed by certified wireline field operator at [facility] [id number] 01:51:00* Test Item Value Reference Range Comments GLUBED (test code=GLUBED) 121 MG/DL 70-110 Performed by certified wireline field operator at [facility] [id number] 21:47:00* Test Item Value Reference Range Comments GLUBED (test code=GLUBED) 95 MG/DL 70-110 Performed by certified wireline field operator at [facility] HGB [id number] 21:29:00* Test Item Value Reference Range Comments HEMOGLOBIN (test code=HGB) 10.2 g/dL 11.0-15.0 HEMATOCRIT (test code=HCT) 30.9 % 33.0-45.0 [id number] 17:46:00* Test Item Value Reference Range Comments GLUBED (test code=GLUBED) 86 MG/DL 70-110 Performed by certified wireline field operator at [facility] HGB [id number] 12:45:00* Test Item Value Reference Range Comments HEMOGLOBIN (test code=HGB) 5.4 g/dL 11.0-15.0 HEMATOCRIT (test code=HCT) 16.8 % 33.0-45.0 BASIC METABOLIC [id number] 11:54:00* Test Item Value Reference Range Comments SODIUM (test code=NA) 131 mEq/L 134-147 POTASSIUM (test code=K) 3.7 mEq/L 3.4-5.0 CHLORIDE (test code=CL) 95 mEq/L 100-108 CARBON DIOXIDE (test code=CO2) 33 mEq/L 21-33 ANION GAP (test code=GAP) 7 0-20 GLUCOSE (test code=GLU) 127 mg/dL 70-110 BLOOD UREA NITROGEN (test code=BUN) 55 mg/dL 7-18 GLOMERULAR FILTRATION RATE (test code=GFR) 23.9 90-95 Units of measure=ml/min/1.73 m2 CREATININE (test code=CREAT) 2.5 mg/dL 0.6-1.3 CALCIUM (test code=CA) 7.8 mg/dL 8.0-10.5 CBC W/AUTO [id number] 11:51:00* Test Item Value Reference Range Comments WHITE BLOOD CELL (test code=WBC) 4.74 x10 3/uL 4.5-11.0 RED BLOOD CELL (test code=RBC) 2.21 x10 6/uL 3.54-5.02 HEMOGLOBIN (test code=HGB) 5.8 g/dL 11.0-15.0 HEMATOCRIT (test code=HCT) 17.5 % 33.0-45.0 MEAN CELL VOLUME (test code=MCV) 79.2 fL 81.0-99.0 MEAN CELL HGB (test code=MCH) 26.2 pg 27.0-33.0 MEAN CELL HGB CONCETRATION (test code=MCHC) 33.1 g/dL 33.0-37.0 RED CELL DISTRIBUTION WIDTH CV (test code=RDW) 15.0 % 11.5-14.5 RED CELL DISTRIBUTION WIDTH SD (test code=RDW-SD) 43.3 fL 37.0-54.0 PLATELET COUNT (test code=PLT) 121 x10 3/uL 150-400 MEAN PLATELET VOLUME (test code=MPV) 12.1 fL 7.0-9.0 NEUTROPHIL % (test code=NT%) 84.6 % 56.0-77.0 IMMATURE GRANULOCYTE % (test code=IG%) 0.6 % 0.0-2.0 LYMPHOCYTE % (test code=LY%) 8.9 % 14.0-32.0 MONOCYTE % (test code=MO%) 5.3 % 4.8-9.0 EOSINOPHIL % (test code=EO%) 0.6 % 0.3-3.7 BASOPHIL % (test code=BA%) 0.0 % 0.0-2.0 NUCLEATED RBC % (test code=NRBC%) 0.0 % 0-0 NEUTROPHIL # (test code=NT#) 4.01 x10 3/uL 2.0-7.6 IMMATURE GRANULOCYTE # (test code=IG#) 0.03 x10 3/uL 0.00-0.03 LYMPHOCYTE # (test code=LY#) 0.42 x10 3/uL 1.0-3.8 MONOCYTE # (test code=MO#) 0.25 x10 3/uL 0.1-0.8 EOSINOPHIL # (test code=EO#) 0.03 x10 3/uL 0.0-0.2 BASOPHIL # (test code=BA#) 0.00 x10 3/uL 0.0-0.2 NUCLEATED RBC # (test code=NRBC#) 0.00 x10 3/uL 0.0-0.1 MANUAL DIFF REQUIRED (test code=MDIFF) NO [id number] 06:01:00* Test Item Value Reference Range Comments GLUBED (test code=GLUBED) 156 MG/DL 70-110 Performed by certified wireline field operator at [facility] [id number] 06:01:00* Test Item Value Reference Range Comments GLUBED (test code=GLUBED) 117 MG/DL 70-110 Performed by certified wireline field operator at [facility] [id number] 21:44:00* Test Item Value Reference Range Comments GLUBED (test code=GLUBED) 62 MG/DL 70-110 Performed by certified wireline field operator at [facility] [id number] 20:53:00* Test Item Value Reference Range Comments GLUBED (test code=GLUBED) 67 MG/DL 70-110 Performed by certified wireline field operator at [facility] [id number] 17:31:00* Test Item Value Reference Range Comments GLUBED (test code=GLUBED) 83 MG/DL 70-110 Performed by certified wireline field operator at [facility] [id number] 13:04:00* Test Item Value Reference Range Comments GLUBED (test code=GLUBED) 89 MG/DL 70-110 Performed by certified wireline field operator at [facility] BASIC METABOLIC [id number] 08:09:00* Test Item Value Reference Range Comments SODIUM (test code=NA) 138 mEq/L 134-147 POTASSIUM (test code=K) 3.7 mEq/L 3.4-5.0 CHLORIDE (test code=CL) 101 mEq/L 100-108 CARBON DIOXIDE (test code=CO2) 31 mEq/L 21-33 ANION GAP (test code=GAP) 10 0-20 GLUCOSE (test code=GLU) 86 mg/dL 70-110 BLOOD UREA NITROGEN (test code=BUN) 34 mg/dL 7-18 GLOMERULAR FILTRATION RATE (test code=GFR) 32.7 90-95 Units of measure=ml/min/1.73 m2 CREATININE (test code=CREAT) 1.9 mg/dL 0.6-1.3 CALCIUM (test code=CA) 7.8 mg/dL 8.0-10.5 [id number] 08:08:00* Test Item Value Reference Range Comments GLUBED (test code=GLUBED) 117 MG/DL 70-110 Performed by certified wireline field operator at [facility] [id number] 08:08:00* Test Item Value Reference Range Comments GLUBED (test code=GLUBED) 98 MG/DL 70-110 Performed by certified wireline field operator at [facility] CBC W/AUTO [id number] 08:03:00* Test Item Value Reference Range Comments WHITE BLOOD CELL (test code=WBC) 4.69 x10 3/uL 4.5-11.0 RED BLOOD CELL (test code=RBC) 3.00 x10 6/uL 3.54-5.02 HEMOGLOBIN (test code=HGB) 7.8 g/dL 11.0-15.0 HEMATOCRIT (test code=HCT) 24.4 % 33.0-45.0 MEAN CELL VOLUME (test code=MCV) 81.3 fL 81.0-99.0 MEAN CELL HGB (test code=MCH) 26.0 pg 27.0-33.0 MEAN CELL HGB CONCETRATION (test code=MCHC) 32.0 g/dL 33.0-37.0 RED CELL DISTRIBUTION WIDTH CV (test code=RDW) 15.2 % 11.5-14.5 RED CELL DISTRIBUTION WIDTH SD (test code=RDW-SD) 44.6 fL 37.0-54.0 PLATELET COUNT (test code=PLT) 110 x10 3/uL 150-400 MEAN PLATELET VOLUME (test code=MPV) 12.5 fL 7.0-9.0 NEUTROPHIL % (test code=NT%) 87.5 % 56.0-77.0 IMMATURE GRANULOCYTE % (test code=IG%) 0.6 % 0.0-2.0 LYMPHOCYTE % (test code=LY%) 7.0 % 14.0-32.0 MONOCYTE % (test code=MO%) 3.8 % 4.8-9.0 EOSINOPHIL % (test code=EO%) 1.1 % 0.3-3.7 BASOPHIL % (test code=BA%) 0.0 % 0.0-2.0 NUCLEATED RBC % (test code=NRBC%) 0.0 % 0-0 NEUTROPHIL # (test code=NT#) 4.10 x10 3/uL 2.0-7.6 IMMATURE GRANULOCYTE # (test code=IG#) 0.03 x10 3/uL 0.00-0.03 LYMPHOCYTE # (test code=LY#) 0.33 x10 3/uL 1.0-3.8 MONOCYTE # (test code=MO#) 0.18 x10 3/uL 0.1-0.8 EOSINOPHIL # (test code=EO#) 0.05 x10 3/uL 0.0-0.2 BASOPHIL # (test code=BA#) 0.00 x10 3/uL 0.0-0.2 NUCLEATED RBC # (test code=NRBC#) 0.00 x10 3/uL 0.0-0.1 MANUAL DIFF REQUIRED (test code=MDIFF) NO [id number] 04:07:00* Test Item Value Reference Range Comments GLUBED (test code=GLUBED) 86 MG/DL 70-110 Performed by certified wireline field operator at [facility] [id number] 04:07:00* Test Item Value Reference Range Comments GLUBED (test code=GLUBED) 108 MG/DL 70-110 Performed by certified wireline field operator at [facility] [id number] 20:49:00* Test Item Value Reference Range Comments GLUBED (test code=GLUBED) 113 MG/DL 70-110 Performed by certified wireline field operator at [facility] [id number] 20:49:00* Test Item Value Reference Range Comments GLUBED (test code=GLUBED) 91 MG/DL 70-110 Performed by certified wireline field operator at [facility] [id number] 20:49:00* Test Item Value Reference Range Comments GLUBED (test code=GLUBED) 160 MG/DL 70-110 Performed by certified wireline field operator at [facility] [id number] 17:10:00* Test Item Value Reference Range Comments GLUBED (test code=GLUBED) 123 MG/DL 70-110 Performed by certified wireline field operator at [facility] [id number] 17:10:00* Test Item Value Reference Range Comments GLUBED (test code=GLUBED) 180 MG/DL 70-110 Performed by certified wireline field operator at [facility] [id number] 17:10:00* Test Item Value Reference Range Comments GLUBED (test code=GLUBED) 159 MG/DL 70-110 Performed by certified wireline field operator at [facility] [id number] 15:02:00* Test Item Value Reference Range Comments GLUBED (test code=GLUBED) 95 MG/DL 70-110 Performed by certified wireline field operator at [facility] [id number] 10:58:00* Test Item Value Reference Range Comments GLUBED (test code=GLUBED) 131 MG/DL 70-110 Performed by certified wireline field operator at [facility] [id number] 06:54:00* Test Item Value Reference Range Comments GLUBED (test code=GLUBED) 101 MG/DL 70-110 Performed by certified wireline field operator at [facility] ADRENOCORTICOTROPIC [id number] 14:08:00* Test Item Value Reference Range Comments ADRENOCORTICOTROPIC HORMONE (test code=ACTH) 72.3 pg/mL 7.2-63.3 ACTH reference interval for samples collected between 7 and10 AM.Performed At: [address] [id number] Castillo MD Ph:[phone] [id number] 14:08:00* Test Item Value Reference Range Comments CORTISOL (test code=CORTR) 21.3 ug/dL () Cortisol AM 6.2 - 19.4 Cortisol PM 2.3 - 11.9Performed At: [employer] [facility] [id number] Castillo MD Ph:[phone] [id number] 08:21:00* Test Item Value Reference Range Comments GLUBED (test code=GLUBED) 108 MG/DL 70-110 Performed by certified wireline field operator at [facility] ADRENOCORTICOTROPIC [id number] 04:07:00* Test Item Value Reference Range Comments ADRENOCORTICOTROPIC HORMONE (test code=ACTH) [id number] 04:07:00* Test Item Value Reference Range Comments CORTISOL (test code=CORTR) 21.3 ug/dL () Cortisol AM 6.2 - 19.4 Cortisol PM 2.3 - 11.9Performed At: [address] [id number] Castillo MD Ph:[phone] TOTAL IRON BINDING [id number] 15:23:00* Test Item Value Reference Range Comments SERUM IRON (test code=IRON) 111 mcg/dL 35-150 TOTAL IRON BINDING CAPACITY (test code=TIBC) 102 mcg/dL 260-445 IRON SATURATION (test code=FESAT) 108.8 % 14-34 [id number] 15:23:00* Test Item Value Reference Range Comments FERRITIN (test code=THOM) 2786.5 ng/mL 11.0-306.8 HGBA1C%2019-09-01 13:42:00* Test Item Value Reference Range Comments HGBA1C% (test code=HGBA1C%) 5.4 %A1C 4.8-6.0 CBC W/AUTO [id number] 13:40:00* Test Item Value Reference Range Comments WHITE BLOOD CELL (test code=WBC) 5.73 x10 3/uL 4.5-11.0 RED BLOOD CELL (test code=RBC) 3.68 x10 6/uL 3.54-5.02 HEMOGLOBIN (test code=HGB) 9.4 g/dL 11.0-15.0 HEMATOCRIT (test code=HCT) 28.9 % 33.0-45.0 MEAN CELL VOLUME (test code=MCV) 78.5 fL 81.0-99.0 MEAN CELL HGB (test code=MCH) 25.5 pg 27.0-33.0 MEAN CELL HGB CONCETRATION (test code=MCHC) 32.5 g/dL 33.0-37.0 RED CELL DISTRIBUTION WIDTH CV (test code=RDW) 15.1 % 11.5-14.5 RED CELL DISTRIBUTION WIDTH SD (test code=RDW-SD) 43.3 fL 37.0-54.0 PLATELET COUNT (test code=PLT) 70 x10 3/uL 150-400 IMMATURE PLATELET FRACTION (test code=IPF) 7.1 % 0.9-11.2 NEUTROPHIL % (test code=NT%) 89.5 % 56.0-77.0 IMMATURE GRANULOCYTE % (test code=IG%) 0.5 % 0.0-2.0 LYMPHOCYTE % (test code=LY%) 5.8 % 14.0-32.0 MONOCYTE % (test code=MO%) 3.5 % 4.8-9.0 EOSINOPHIL % (test code=EO%) 0.5 % 0.3-3.7 BASOPHIL % (test code=BA%) 0.2 % 0.0-2.0 NUCLEATED RBC % (test code=NRBC%) 0.0 % 0-0 NEUTROPHIL # (test code=NT#) 5.13 x10 3/uL 2.0-7.6 IMMATURE GRANULOCYTE # (test code=IG#) 0.03 x10 3/uL 0.00-0.03 LYMPHOCYTE # (test code=LY#) 0.33 x10 3/uL 1.0-3.8 MONOCYTE # (test code=MO#) 0.20 x10 3/uL 0.1-0.8 EOSINOPHIL # (test code=EO#) 0.03 x10 3/uL 0.0-0.2 BASOPHIL # (test code=BA#) 0.01 x10 3/uL 0.0-0.2 NUCLEATED RBC # (test code=NRBC#) 0.00 x10 3/uL 0.0-0.1 MANUAL DIFF REQUIRED (test code=MDIFF) NO PLT [id number] 13:40:00* Test Item Value Reference Range Comments PLATELET ESTIMATE (test code=PLTEST) 100-125 THOUSAND ADEQUATE PLATELET MORPHOLOGY (test code=PLTMORPH) LARGE PLATELETS BASIC METABOLIC [id number] 13:31:00* Test Item Value Reference Range Comments SODIUM (test code=NA) 136 mEq/L 134-147 POTASSIUM (test code=K) 3.2 mEq/L 3.4-5.0 CHLORIDE (test code=CL) 101 mEq/L 100-108 CARBON DIOXIDE (test code=CO2) 30 mEq/L 21-33 ANION GAP (test code=GAP) 8 0-20 GLUCOSE (test code=GLU) 162 mg/dL 70-110 BLOOD UREA NITROGEN (test code=BUN) 28 mg/dL 7-18 GLOMERULAR FILTRATION RATE (test code=GFR) 55.6 90-95 Units of measure=ml/min/1.73 m2 CREATININE (test code=CREAT) 1.2 mg/dL 0.6-1.3 CALCIUM (test code=CA) 8.0 mg/dL 8.0-10.5 T4 [id number] 13:31:00* Test Item Value Reference Range Comments T4 FREE (test code=T4F) 0.5 ng/dL 0.77-1.61 [id number] 13:31:00* Test Item Value Reference Range Comments PREALBUMIN (test code=PREALB) 18.6 mg/dL 16.0-40.0 CBC W/AUTO [id number] 13:18:00* Test Item Value Reference Range Comments WHITE BLOOD CELL (test code=WBC) 5.73 x10 3/uL 4.5-11.0 RED BLOOD CELL (test code=RBC) 3.68 x10 6/uL 3.54-5.02 HEMOGLOBIN (test code=HGB) 9.4 g/dL 11.0-15.0 HEMATOCRIT (test code=HCT) 28.9 % 33.0-45.0 MEAN CELL VOLUME (test code=MCV) 78.5 fL 81.0-99.0 MEAN CELL HGB (test code=MCH) 25.5 pg 27.0-33.0 MEAN CELL HGB CONCETRATION (test code=MCHC) 32.5 g/dL 33.0-37.0 RED CELL DISTRIBUTION WIDTH CV (test code=RDW) 15.1 % 11.5-14.5 RED CELL DISTRIBUTION WIDTH SD (test code=RDW-SD) 43.3 fL 37.0-54.0 PLATELET COUNT (test code=PLT) 70 x10 3/uL 150-400 IMMATURE PLATELET FRACTION (test code=IPF) 7.1 % 0.9-11.2 NEUTROPHIL % (test code=NT%) 89.5 % 56.0-77.0 IMMATURE GRANULOCYTE % (test code=IG%) 0.5 % 0.0-2.0 LYMPHOCYTE % (test code=LY%) 5.8 % 14.0-32.0 MONOCYTE % (test code=MO%) 3.5 % 4.8-9.0 EOSINOPHIL % (test code=EO%) 0.5 % 0.3-3.7 BASOPHIL % (test code=BA%) 0.2 % 0.0-2.0 NUCLEATED RBC % (test code=NRBC%) 0.0 % 0-0 NEUTROPHIL # (test code=NT#) 5.13 x10 3/uL 2.0-7.6 IMMATURE GRANULOCYTE # (test code=IG#) 0.03 x10 3/uL 0.00-0.03 LYMPHOCYTE # (test code=LY#) 0.33 x10 3/uL 1.0-3.8 MONOCYTE # (test code=MO#) 0.20 x10 3/uL 0.1-0.8 EOSINOPHIL # (test code=EO#) 0.03 x10 3/uL 0.0-0.2 BASOPHIL # (test code=BA#) 0.01 x10 3/uL 0.0-0.2 NUCLEATED RBC # (test code=NRBC#) 0.00 x10 3/uL 0.0-0.1 MANUAL DIFF REQUIRED (test code=MDIFF) NO PLT [id number] 13:18:00* Test Item Value Reference Range Comments PLATELET ESTIMATE (test code=PLTEST) THOUSAND ADEQUATE CBC W/AUTO [id number] 13:18:00* Test Item Value Reference Range Comments WHITE BLOOD CELL (test code=WBC) 5.73 x10 3/uL 4.5-11.0 RED BLOOD CELL (test code=RBC) 3.68 x10 6/uL 3.54-5.02 HEMOGLOBIN (test code=HGB) 9.4 g/dL 11.0-15.0 HEMATOCRIT (test code=HCT) 28.9 % 33.0-45.0 MEAN CELL VOLUME (test code=MCV) 78.5 fL 81.0-99.0 MEAN CELL HGB (test code=MCH) 25.5 pg 27.0-33.0 MEAN CELL HGB CONCETRATION (test code=MCHC) 32.5 g/dL 33.0-37.0 RED CELL DISTRIBUTION WIDTH CV (test code=RDW) 15.1 % 11.5-14.5 RED CELL DISTRIBUTION WIDTH SD (test code=RDW-SD) 43.3 fL 37.0-54.0 PLATELET COUNT (test code=PLT) 70 x10 3/uL 150-400 IMMATURE PLATELET FRACTION (test code=IPF) 7.1 % 0.9-11.2 NEUTROPHIL % (test code=NT%) 89.5 % 56.0-77.0 IMMATURE GRANULOCYTE % (test code=IG%) 0.5 % 0.0-2.0 LYMPHOCYTE % (test code=LY%) 5.8 % 14.0-32.0 MONOCYTE % (test code=MO%) 3.5 % 4.8-9.0 EOSINOPHIL % (test code=EO%) 0.5 % 0.3-3.7 BASOPHIL % (test code=BA%) 0.2 % 0.0-2.0 NUCLEATED RBC % (test code=NRBC%) 0.0 % 0-0 NEUTROPHIL # (test code=NT#) 5.13 x10 3/uL 2.0-7.6 IMMATURE GRANULOCYTE # (test code=IG#) 0.03 x10 3/uL 0.00-0.03 LYMPHOCYTE # (test code=LY#) 0.33 x10 3/uL 1.0-3.8 MONOCYTE # (test code=MO#) 0.20 x10 3/uL 0.1-0.8 EOSINOPHIL # (test code=EO#) 0.03 x10 3/uL 0.0-0.2 BASOPHIL # (test code=BA#) 0.01 x10 3/uL 0.0-0.2 NUCLEATED RBC # (test code=NRBC#) 0.00 x10 3/uL 0.0-0.1 MANUAL DIFF REQUIRED (test code=MDIFF) NO PLT [id number] 13:18:00* Test Item Value Reference Range Comments PLATELET ESTIMATE (test code=PLTEST) THOUSAND ADEQUATE [id number] 12:02:00* Test Item Value Reference Range Comments GLUBED (test code=GLUBED) 147 MG/DL 70-110 Performed by certified wireline field operator at [facility] [id number] 07:56:00* Test Item Value Reference Range Comments GLUBED (test code=GLUBED) 108 MG/DL 70-110 Performed by certified wireline field operator at [facility] [id number] 05:04:00* Test Item Value Reference Range Comments GLUBED (test code=GLUBED) 90 MG/DL 70-110 Performed by certified wireline field operator at [facility] [id number] 00:34:00* Test Item Value Reference Range Comments GLUBED (test code=GLUBED) 94 MG/DL 70-110 Performed by certified wireline field operator at [facility] [id number] 21:41:00* Test Item Value Reference Range Comments GLUBED (test code=GLUBED) 86 MG/DL 70-110 Performed by certified wireline field operator at [facility] [id number] 21:01:00* Test Item Value Reference Range Comments GLUBED (test code=GLUBED) 89 MG/DL 70-110 Performed by certified wireline field operator at [facility] [id number] 17:51:00* Test Item Value Reference Range Comments GLUBED (test code=GLUBED) 85 MG/DL 70-110 Performed by certified wireline field operator at [facility] [id number] 12:56:00* Test Item Value Reference Range Comments GLUBED (test code=GLUBED) 87 MG/DL 70-110 Performed by certified wireline field operator at [facility] [id number] 12:55:00* Test Item Value Reference Range Comments GLUBED (test code=GLUBED) 92 MG/DL 70-110 Performed by certified wireline field operator at [facility] [id number] 12:53:00* Test Item Value Reference Range Comments GLUBED (test code=GLUBED) 68 MG/DL 70-110 Performed by certified wireline field operator at [facility] [id number] 12:50:00* Test Item Value Reference Range Comments GLUBED (test code=GLUBED) 86 MG/DL 70-110 Performed by certified wireline field operator at [facility] [id number] 12:49:00* Test Item Value Reference Range Comments GLUBED (test code=GLUBED) 88 MG/DL 70-110 Performed by certified wireline field operator at [facility] [id number] 12:47:00* Test Item Value Reference Range Comments GLUBED (test code=GLUBED) 88 MG/DL 70-110 Performed by certified wireline field operator at [facility] [id number] 12:21:00* Test Item Value Reference Range Comments GLUBED (test code=GLUBED) 89 MG/DL 70-110 Performed by certified wireline field operator at [facility] BASIC METABOLIC [id number] 11:54:00* Test Item Value Reference Range Comments SODIUM (test code=NA) 133 mEq/L 134-147 POTASSIUM (test code=K) 4.1 mEq/L 3.4-5.0 CHLORIDE (test code=CL) 97 mEq/L 100-108 CARBON DIOXIDE (test code=CO2) 29 mEq/L 21-33 ANION GAP (test code=GAP) 11 0-20 GLUCOSE (test code=GLU) 98 mg/dL 70-110 BLOOD UREA NITROGEN (test code=BUN) 53 mg/dL 7-18 GLOMERULAR FILTRATION RATE (test code=GFR) 20.9 90-95 Units of measure=ml/min/1.73 m2 CREATININE (test code=CREAT) 2.8 mg/dL 0.6-1.3 CALCIUM (test code=CA) 8.1 mg/dL 8.0-10.5 BASIC METABOLIC [id number] 11:51:00* Test Item Value Reference Range Comments SODIUM (test code=NA) 133 mEq/L 134-147 POTASSIUM (test code=K) 4.1 mEq/L 3.4-5.0 CHLORIDE (test code=CL) 97 mEq/L 100-108 CARBON DIOXIDE (test code=CO2) 29 mEq/L 21-33 ANION GAP (test code=GAP) 11 0-20 GLUCOSE (test code=GLU) 98 mg/dL 70-110 BLOOD UREA NITROGEN (test code=BUN) 53 mg/dL 7-18 GLOMERULAR FILTRATION RATE (test code=GFR) 90-95 CREATININE (test code=CREAT) mg/dL 0.6-1.3 CALCIUM (test code=CA) 8.1 mg/dL 8.0-10.5 CBC W/AUTO [id number] 11:46:00* Test Item Value Reference Range Comments WHITE BLOOD CELL (test code=WBC) 6.61 x10 3/uL 4.5-11.0 RED BLOOD CELL (test code=RBC) 3.65 x10 6/uL 3.54-5.02 HEMOGLOBIN (test code=HGB) 9.4 g/dL 11.0-15.0 HEMATOCRIT (test code=HCT) 29.3 % 33.0-45.0 MEAN CELL VOLUME (test code=MCV) 80.3 fL 81.0-99.0 MEAN CELL HGB (test code=MCH) 25.8 pg 27.0-33.0 MEAN CELL HGB CONCETRATION (test code=MCHC) 32.1 g/dL 33.0-37.0 RED CELL DISTRIBUTION WIDTH CV (test code=RDW) 15.5 % 11.5-14.5 RED CELL DISTRIBUTION WIDTH SD (test code=RDW-SD) 45.1 fL 37.0-54.0 PLATELET COUNT (test code=PLT) 48 x10 3/uL 150-400 IMMATURE PLATELET FRACTION (test code=IPF) 5.1 % 0.9-11.2 NEUTROPHIL % (test code=NT%) 88.0 % 56.0-77.0 IMMATURE GRANULOCYTE % (test code=IG%) 0.5 % 0.0-2.0 LYMPHOCYTE % (test code=LY%) 6.5 % 14.0-32.0 MONOCYTE % (test code=MO%) 4.2 % 4.8-9.0 EOSINOPHIL % (test code=EO%) 0.6 % 0.3-3.7 BASOPHIL % (test code=BA%) 0.2 % 0.0-2.0 NUCLEATED RBC % (test code=NRBC%) 0.0 % 0-0 NEUTROPHIL # (test code=NT#) 5.82 x10 3/uL 2.0-7.6 IMMATURE GRANULOCYTE # (test code=IG#) 0.03 x10 3/uL 0.00-0.03 LYMPHOCYTE # (test code=LY#) 0.43 x10 3/uL 1.0-3.8 MONOCYTE # (test code=MO#) 0.28 x10 3/uL 0.1-0.8 EOSINOPHIL # (test code=EO#) 0.04 x10 3/uL 0.0-0.2 BASOPHIL # (test code=BA#) 0.01 x10 3/uL 0.0-0.2 NUCLEATED RBC # (test code=NRBC#) 0.00 x10 3/uL 0.0-0.1 MANUAL DIFF REQUIRED (test code=MDIFF) NO [id number] 08:23:00* Test Item Value Reference Range Comments GLUBED (test code=GLUBED) 87 MG/DL 70-110 Performed by certified wireline field operator at [facility] [id number] 03:48:00* Test Item Value Reference Range Comments GLUBED (test code=GLUBED) 87 MG/DL 70-110 Performed by certified wireline field operator at [facility] [id number] 02:46:00* Test Item Value Reference Range Comments GLUBED (test code=GLUBED) 92 MG/DL 70-110 Performed by certified wireline field operator at [facility] [id number] 00:03:00* Test Item Value Reference Range Comments GLUBED (test code=GLUBED) 88 MG/DL 70-110 Performed by certified wireline field operator at [facility] [id number] 00:01:00* Test Item Value Reference Range Comments GLUBED (test code=GLUBED) 88 MG/DL 70-110 Performed by certified wireline field operator at [facility] [id number] 21:41:00* Test Item Value Reference Range Comments GLUBED (test code=GLUBED) 86 MG/DL 70-110 Performed by certified wireline field operator at [facility] [id number] 21:39:00* Test Item Value Reference Range Comments GLUBED (test code=GLUBED) 68 MG/DL 70-110 Performed by certified wireline field operator at [facility]2019-12-28 12:30:00* Test Item Value Reference Range Comments GLUBED (test code=GLUBED) 81 MG/DL 70-110 Performed by certified wireline field operator at [facility] BASIC METABOLIC [id number] 11:21:00* Test Item Value Reference Range Comments SODIUM (test code=NA) 138 mEq/L 134-147 POTASSIUM (test code=K) 3.4 mEq/L 3.4-5.0 CHLORIDE (test code=CL) 100 mEq/L 100-108 CARBON DIOXIDE (test code=CO2) 33 mEq/L 21-33 ANION GAP (test code=GAP) 8 0-20 GLUCOSE (test code=GLU) 94 mg/dL 70-110 BLOOD UREA NITROGEN (test code=BUN) 31 mg/dL 7-18 GLOMERULAR FILTRATION RATE (test code=GFR) 34.8 90-95 Units of measure=ml/min/1.73 m2 CREATININE (test code=CREAT) 1.8 mg/dL 0.6-1.3 CALCIUM (test code=CA) 8.3 mg/dL 8.0-10.5 BASIC METABOLIC [id number] 11:17:00* Test Item Value Reference Range Comments SODIUM (test code=NA) 138 mEq/L 134-147 POTASSIUM (test code=K) 3.4 mEq/L 3.4-5.0 CHLORIDE (test code=CL) 100 mEq/L 100-108 CARBON DIOXIDE (test code=CO2) 33 mEq/L 21-33 ANION GAP (test code=GAP) 8 0-20 GLUCOSE (test code=GLU) 94 mg/dL 70-110 BLOOD UREA NITROGEN (test code=BUN) 31 mg/dL 7-18 GLOMERULAR FILTRATION RATE (test code=GFR) 90-95 CREATININE (test code=CREAT) mg/dL 0.6-1.3 CALCIUM (test code=CA) 8.3 mg/dL 8.0-10.5 [id number] 10:44:00* Test Item Value Reference Range Comments GLUBED (test code=GLUBED) 91 MG/DL 70-110 Performed by certified wireline field operator at [facility] [id number] 07:56:00* Test Item Value Reference Range Comments GLUBED (test code=GLUBED) 84 MG/DL 70-110 Performed by certified wireline field operator at [facility] [id number] 06:57:00* Test Item Value Reference Range Comments GLUBED (test code=GLUBED) 155 MG/DL 70-110 Performed by certified wireline field operator at [facility] [id number] 06:57:00* Test Item Value Reference Range Comments GLUBED (test code=GLUBED) 148 MG/DL 70-110 Performed by certified wireline field operator at [facility] [id number] 00:12:00* Test Item Value Reference Range Comments GLUBED (test code=GLUBED) 115 MG/DL 70-110 Performed by certified wireline field operator at [facility] [id number] 19:52:00* Test Item Value Reference Range Comments GLUBED (test code=GLUBED) 121 MG/DL 70-110 Performed by certified wireline field operator at [facility] [id number] 16:53:00* Test Item Value Reference Range Comments GLUBED (test code=GLUBED) 88 MG/DL 70-110 Performed by certified wireline field operator at [facility] [id number] 14:28:00* Test Item Value Reference Range Comments GLUBED (test code=GLUBED) 111 MG/DL 70-110 Performed by certified wireline field operator at [facility] [id number] 13:33:00* Test Item Value Reference Range Comments GLUBED (test code=GLUBED) 73 MG/DL 70-110 Performed by certified wireline field operator at [facility] [id number] 12:25:00* Test Item Value Reference Range Comments GLUBED (test code=GLUBED) 68 MG/DL 70-110 Performed by certified wireline field operator at [facility] [id number] 08:26:00* Test Item Value Reference Range Comments GLUBED (test code=GLUBED) 59 MG/DL 70-110 Performed by certified wireline field operator at [facility] [id number] 06:55:00* Test Item Value Reference Range Comments GLUBED (test code=GLUBED) 160 MG/DL 70-110 Performed by certified wireline field operator at [facility] [id number] 04:44:00* Test Item Value Reference Range Comments GLUBED (test code=GLUBED) 75 MG/DL 70-110 Performed by certified wireline field operator at [facility] [id number] 00:24:00* Test Item Value Reference Range Comments GLUBED (test code=GLUBED) 92 MG/DL 70-110 Performed by certified wireline field operator at [facility] [id number] 21:22:00* Test Item Value Reference Range Comments GLUBED (test code=GLUBED) 134 MG/DL 70-110 Performed by certified wireline field operator at [facility] [id number] 13:41:00* Test Item Value Reference Range Comments GLUBED (test code=GLUBED) 125 MG/DL 70-110 Performed by certified wireline field operator at [facility] [id number] 06:06:00* Test Item Value Reference Range Comments GLUBED (test code=GLUBED) 116 MG/DL 70-110 Performed by certified wireline field operator at [facility] [id number] 01:06:00* Test Item Value Reference Range Comments GLUBED (test code=GLUBED) 130 MG/DL 70-110 Performed by certified wireline field operator at [facility] [id number] 00:55:00* Test Item Value Reference Range Comments GLUBED (test code=GLUBED) 131 MG/DL 70-110 Performed by certified wireline field operator at [facility] [id number] 18:05:00* Test Item Value Reference Range Comments GLUBED (test code=GLUBED) 103 MG/DL 70-110 Performed by certified wireline field operator at [facility] [id number] 13:26:00* Test Item Value Reference Range Comments GLUBED (test code=GLUBED) 102 MG/DL 70-110 Performed by certified wireline field operator at [facility] [id number] 08:14:00* Test Item Value Reference Range Comments GLUBED (test code=GLUBED) 89 MG/DL 70-110 Performed by certified wireline field operator at [facility] [id number] 05:47:00* Test Item Value Reference Range Comments GLUBED (test code=GLUBED) 83 MG/DL 70-110 Performed by certified wireline field operator at [facility] [id number] 04:39:00* Test Item Value Reference Range Comments GLUBED (test code=GLUBED) 70 MG/DL 70-110 Performed by certified wireline field operator at [facility] ACUTE HEPATITIS [id number] 04:06:00* Test Item Value Reference Range Comments AB HEPATITIS A IGM (test code=HAVMAB) NON REACTIVE INDEX NON REACT. AG HEPATITIS B SURFACE (test code=HBSAG) NON REACTIVE INDEX NonReactive AB HEPATITIS B CORE IGM (test code=HBCMAB) NON REACTIVE INDEX NON REACT. AB HEPATITIS C (test code=HCVAB) NON REACTIVE INDEX NON REACT. COMMENTS: At start of hemodialysisAB HEPATITIS B [id number] 04:06:00* Test Item Value Reference Range Comments AB HEPATITIS B SURFACE (test code=HBSAB) < 3.1 mIU/mL Immunity>9.9 Status of Immunity Anti-HBs Level Inconsistent with Immunity 0.0 - 9.9Consistent with Immunity >9.9Performed At: [facility] [address] [place], [place] [id number] Kyle L MD Ph:[phone] COMMENTS: At start of [id number] 01:23:00* Test Item Value Reference Range Comments GLUBED (test code=GLUBED) 71 MG/DL 70-110 Performed by certified wireline field operator at [facility] [id number] 01:21:00* Test Item Value Reference Range Comments GLUBED (test code=GLUBED) 68 MG/DL 70-110 Performed by certified wireline field operator at [facility] [id number] 21:27:00* Test Item Value Reference Range Comments GLUBED (test code=GLUBED) 85 MG/DL 70-110 Performed by certified wireline field operator at [facility] [id number] 18:36:00* Test Item Value Reference Range Comments GLUBED (test code=GLUBED) 89 MG/DL 70-110 Performed by certified wireline field operator at [facility] [id number] 16:59:00* Test Item Value Reference Range Comments GLUBED (test code=GLUBED) 68 MG/DL 70-110 Performed by certified wireline field operator at [facility] [id number] 14:27:00* Test Item Value Reference Range Comments GLUBED (test code=GLUBED) 71 MG/DL 70-110 Performed by certified wireline field operator at [facility] [id number] 13:10:00* Test Item Value Reference Range Comments GLUBED (test code=GLUBED) 59 MG/DL 70-110 Performed by certified wireline field operator at [facility] [id number] 12:35:00* Test Item Value Reference Range Comments GLUBED (test code=GLUBED) 46 MG/DL 70-110 Performed by certified wireline field operator at [facility] [id number] 11:34:00* Test Item Value Reference Range Comments GLUBED (test code=GLUBED) 49 MG/DL 70-110 Performed by certified wireline field operator at [facility] [id number] 11:34:00* Test Item Value Reference Range Comments GLUBED (test code=GLUBED) 48 MG/DL 70-110 Performed by certified wireline field operator at [facility] [id number] 23:23:00* Test Item Value Reference Range Comments GLUBED (test code=GLUBED) 138 MG/DL 70-110 Performed by certified wireline field operator at [facility] ACUTE HEPATITIS [id number] 21:31:00* Test Item Value Reference Range Comments AB HEPATITIS A IGM (test code=HAVMAB) NON REACTIVE INDEX NON REACT. AG HEPATITIS B SURFACE (test code=HBSAG) NON REACTIVE INDEX NonReactive AB HEPATITIS B CORE IGM (test code=HBCMAB) NON REACTIVE INDEX NON REACT. AB HEPATITIS C (test code=HCVAB) NON REACTIVE INDEX NON REACT. COMMENTS: At start of hemodialysisAB HEPATITIS B [id number] 21:31:00* Test Item Value Reference Range Comments AB HEPATITIS B SURFACE (test code=HBSAB) COMMENTS: At start of hemodialysisACUTE HEPATITIS [id number] 21:22:00* Test Item Value Reference Range Comments AB HEPATITIS A IGM (test code=HAVMAB) INDEX NON REACT. AG HEPATITIS B SURFACE (test code=HBSAG) NON REACTIVE INDEX NonReactive AB HEPATITIS B CORE IGM (test code=HBCMAB) INDEX NON REACT. AB HEPATITIS C (test code=HCVAB) NON REACTIVE INDEX NON REACT. COMMENTS: At start of hemodialysisAB HEPATITIS B [id number] 21:22:00* Test Item Value Reference Range Comments AB HEPATITIS B SURFACE (test code=HBSAB) COMMENTS: At start of hemodialysisACUTE HEPATITIS [id number] 21:05:00* Test Item Value Reference Range Comments AB HEPATITIS A IGM (test code=HAVMAB) INDEX NON REACT. AG HEPATITIS B SURFACE (test code=HBSAG) NON REACTIVE INDEX NonReactive AB HEPATITIS B CORE IGM (test code=HBCMAB) INDEX NON REACT. AB HEPATITIS C (test code=HCVAB) INDEX NON REACT. COMMENTS: At start of hemodialysisAB HEPATITIS B [id number] 21:05:00* Test Item Value Reference Range Comments AB HEPATITIS B SURFACE (test code=HBSAB) COMMENTS: At start of hemodialysis- MRI BRAIN W/O [id number] 20:36:00 FAX: Kin Castro MD [phone] Cammal: St: [facility] FAX: Kayley Velasco MD [phone] Name: ERINN JUNE [facility] : 1960 Age/S: 59/F [address] [place] [address] Unit #: [id number] Loc: [place] [address] Phys: Kin Castro MD Acct: [id number] Dis Date: Status: ADM IN PHONE #: [phone] Exam Date: 08/25/2019 1836 FAX #: [phone] Reason: AMS EXAMS: CPT CODE: [id number] MRI BRAIN W/O CONT 77568 Clinical Indication: Altered mental status. Compar suhba: Prior MRI dated 11/18/2017. TECHNIQUE: MRI of the brain is pe rformed without gadolinium contrast with axial T1, T2, FLAIR and diffusion weighted imaging along with sagittal T2, and coronal T1 weighted imaging. FINDINGS: Evaluation is somewhat limited due to motion artifacts. BRAIN PARENCHYMA: There is diffuse generalized cortical atrophy. Mo derate nonspecific periventricular white matter foci of increased T2 and FLAIR signal are seen, likely related to small vessel disease. There is no mass effect or midline shift. There are no extra-axial fluid collection, or intraparenchymal hemorrhage. The corpus callosum appears normal. There is no diffusion weighted imaging or ADC map abnormality to suggest acute/s ubacute ischemia. . There is no magnetic susceptibility to suggest recent or remote intracranial hemorrhage. CEREBELLOPONTINE REGIONS AND SK ULL BASE: The cerebellopontine angles appear unremarkable. The skull base, craniocervical junction, and brainstem region are normal. The optic shiv sm is normal. The sellar and pineal regions are unremarkable. VENTRICLES: There is diffuse greater than age-related prominence of the ventricles with respect to the cortical sulci. The basilar cisterns are n ormal. VESSELS: The venous sinuses are grossly unremarkable. The expected intracranial flow voids are present. ORBITS, VISUAL IZED PARANASAL SINUSES AND MASTOIDS: Mild posterior dislocation/subluxatio n of the intraocular lens within the posterior chamber (series 9 cm image 15). Paranasal sinuses are unremarkable. The mastoid air cells are clear. IMPRESSION: 1. No acute intracranial abnormality without acute stroke, hemorrhage or mass. 2. Persistent grea ter than age-appropriate generalized brain parenchymal atrophy with asso ciated nonspecific periventricular white matter disease changes/small ve ssel disease. 3. Posterior dislocation/subluxation of the int raocular lens within PAGE 1 Signed Report (CONTINUED) FAX: Kin Castro MD [phone] Cammal: St: ADM FAX: Kayley Velasco MD [phone] Name: ZAINAB JUNE [facility] : 1960 Age/S: 59/F [address] [place] [address] Unit #: [id number] Loc: G.6 54 [place] [address] Phys: Kin Castro MD Acct: [id number] Dis Date: Status: ADM IN PHONE #: [phone] Exam D ate: 08/25/2019 1836 FAX #: [phone] Reason: A MS EXAMS: CPT CODE: [id number] MRI BRAIN W/O CONT 69937 <Continued> the posterior chamber. Ophthalmologic consultation is suggested. SL: HENRY at 2035 Reported and signed by: Sue Chen M.D. CC: Kni Castro MD; Kayley Dickens MD Technologist: RT Chema(R)(CT) Trnscrd Date/Time/By: 08/25/2019 (2035) : By: [email or web address] [facility] Print D/T: S: 08/25/2019 (2038) PAGE 2 Signed Report [id number] 17:19:00* Test Item Value Reference Range Comments GLUBED (test code=GLUBED) 114 MG/DL 70-110 Performed by certified wireline field operator at [facility] [id number] 12:29:00* Test Item Value Reference Range Comments GLUBED (test code=GLUBED) 45 MG/DL 70-110 Performed by certified wireline field operator at [facility] [id number] 06:50:00* Test Item Value Reference Range Comments GLUBED (test code=GLUBED) 87 MG/DL 70-110 Performed by certified wireline field operator at [facility] [id number] 00:58:00* Test Item Value Reference Range Comments GLUBED (test code=GLUBED) 82 MG/DL 70-110 Performed by certified wireline field operator at [facility] [id number] 00:16:00* Test Item Value Reference Range Comments GLUBED (test code=GLUBED) 58 MG/DL 70-110 Performed by certified wireline field operator at [facility] UA RFLX MICR CULT IF [id number] 22:09:00* Test Item Value Reference Range Comments UA COLOR (test code=COLU) YELLOW YEL/STRAW UA APPEARANCE (test code=APPU) TURBID CLEAR UA GLUCOSE DIPSTICK (test code=DGLUU) NEGATIVE NEGATIVE UA BILIRUBIN DIPSTICK (test code=BILU) NEGATIVE NEGATIVE UA KETONE DIPSTICK (test code=KETU) NEGATIVE NEGATIVE UA SPECIFIC GRAVITY (test code=SGU) 1.018 1.005-1.030 UA BLOOD DIPSTICK (test code=VICKI) 3+ NEGATIVE UA PH DIPSTICK (test code=EDUARDO) 7.0 5.0-7.0 UA PROTEIN DIPSTICK (test code=PROU) 3+ NEGATIVE UA UROBILINIOGEN DIPSTICK (test code=URO) 0.2 mg/dL 0.2-1.0 UA NITRITE DIPSTICK (test code=KENYETTA) NEGATIVE NEGATIVE UA LEUKOCYTE ESTERASE DIPSTICK (test code=LEUU) 3+ NEGATIVE UA WBC (test code=WBCU) >50 WBC/HPF 0-3 UA RBC (test code=RBCU) >50 RBC/HPF 0-3 UA WBC NO REFLEX (test code=WBCUCL) >50 WBC/HPF 0-3 UA BACTERIA (test code=BACU) 1+ /HPF NONE SEEN UA SQUAMOUS CELLS (test code=SQU) 0-5 /HPF NONE SEEN Indication for culture: Delirium-if no other srcSpecimen Description: ESTEFANY HELMS CATHPROCALCITONIN (PCT)2019-08-24 21:35:00* Test Item Value Reference Range Comments PROCALCITONIN (PCT) (test code=PROCAL) 1.60 ng/mL 0.00-0.05 PROCALCITONIN (PCT) NORMAL RANGE (ADULT): <0.05 NG/ML. * a concentration <0.5 ng/mL represents a low risk of severe sepsis and/or septic shock.* a concentration >2 ng/mL represents a high risk of severe sepsis and/or septic shock.Nevertheless, concentrations <0.5 ng/mL do not exclude aninfection, on account of localized infections (withoutsystemic signs) which can be associated with such lowconcentrations, or a systemic infection in its initialstages (< 6 hours). Furthermore, increased procalcitonincan occur without infection. PCT concentrations between 0.5and 2.0 ng/mL should be interpreted taking into account thepatient's history. It is recommended to retest PCT within6-24 hours if any concentrations <2 ng/mL are obtained. TSH REFLEX TO [id number] 21:06:00* Test Item Value Reference Range Comments TSH REFLEX TO FT4 (test code=TSHREFLEX) 2.24 IU/mL 0.42-5.47 [id number] 20:56:00* Test Item Value Reference Range Comments GLUBED (test code=GLUBED) 68 MG/DL 70-110 Performed by certified wireline field operator at [facility] CBC W/AUTO [id number] 20:45:00* Test Item Value Reference Range Comments WHITE BLOOD CELL (test code=WBC) 9.14 x10 3/uL 4.5-11.0 RED BLOOD CELL (test code=RBC) 4.55 x10 6/uL 3.54-5.02 HEMOGLOBIN (test code=HGB) 11.7 g/dL 11.0-15.0 HEMATOCRIT (test code=HCT) 34.2 % 33.0-45.0 MEAN CELL VOLUME (test code=MCV) 75.2 fL 81.0-99.0 MEAN CELL HGB (test code=MCH) 25.7 pg 27.0-33.0 MEAN CELL HGB CONCETRATION (test code=MCHC) 34.2 g/dL 33.0-37.0 RED CELL DISTRIBUTION WIDTH CV (test code=RDW) 15.1 % 11.5-14.5 RED CELL DISTRIBUTION WIDTH SD (test code=RDW-SD) 41.5 fL 37.0-54.0 PLATELET COUNT (test code=PLT) 53 x10 3/uL 150-400 IMMATURE PLATELET FRACTION (test code=IPF) 5.4 % 0.9-11.2 NEUTROPHIL % (test code=NT%) 92.2 % 56.0-77.0 IMMATURE GRANULOCYTE % (test code=IG%) 0.2 % 0.0-2.0 LYMPHOCYTE % (test code=LY%) 5.9 % 14.0-32.0 MONOCYTE % (test code=MO%) 1.5 % 4.8-9.0 EOSINOPHIL % (test code=EO%) 0.1 % 0.3-3.7 BASOPHIL % (test code=BA%) 0.1 % 0.0-2.0 NUCLEATED RBC % (test code=NRBC%) 0.0 % 0-0 NEUTROPHIL # (test code=NT#) 8.42 x10 3/uL 2.0-7.6 IMMATURE GRANULOCYTE # (test code=IG#) 0.02 x10 3/uL 0.00-0.03 LYMPHOCYTE # (test code=LY#) 0.54 x10 3/uL 1.0-3.8 MONOCYTE # (test code=MO#) 0.14 x10 3/uL 0.1-0.8 EOSINOPHIL # (test code=EO#) 0.01 x10 3/uL 0.0-0.2 BASOPHIL # (test code=BA#) 0.01 x10 3/uL 0.0-0.2 NUCLEATED RBC # (test code=NRBC#) 0.00 x10 3/uL 0.0-0.1 MANUAL DIFF REQUIRED (test code=MDIFF) NO SLIDE REVIEWED, CONSISTENT WITH AUTO DIFF. PLT [id number] 20:45:00* Test Item Value Reference Range Comments PLATELET ESTIMATE (test code=PLTEST) 44-55 THOUSAND ADEQUATE CBC W/AUTO [id number] 20:44:00* Test Item Value Reference Range Comments WHITE BLOOD CELL (test code=WBC) 9.14 x10 3/uL 4.5-11.0 RED BLOOD CELL (test code=RBC) 4.55 x10 6/uL 3.54-5.02 HEMOGLOBIN (test code=HGB) 11.7 g/dL 11.0-15.0 HEMATOCRIT (test code=HCT) 34.2 % 33.0-45.0 MEAN CELL VOLUME (test code=MCV) 75.2 fL 81.0-99.0 MEAN CELL HGB (test code=MCH) 25.7 pg 27.0-33.0 MEAN CELL HGB CONCETRATION (test code=MCHC) 34.2 g/dL 33.0-37.0 RED CELL DISTRIBUTION WIDTH CV (test code=RDW) 15.1 % 11.5-14.5 RED CELL DISTRIBUTION WIDTH SD (test code=RDW-SD) 41.5 fL 37.0-54.0 PLATELET COUNT (test code=PLT) 53 x10 3/uL 150-400 IMMATURE PLATELET FRACTION (test code=IPF) 5.4 % 0.9-11.2 NEUTROPHIL % (test code=NT%) 92.2 % 56.0-77.0 IMMATURE GRANULOCYTE % (test code=IG%) 0.2 % 0.0-2.0 LYMPHOCYTE % (test code=LY%) 5.9 % 14.0-32.0 MONOCYTE % (test code=MO%) 1.5 % 4.8-9.0 EOSINOPHIL % (test code=EO%) 0.1 % 0.3-3.7 BASOPHIL % (test code=BA%) 0.1 % 0.0-2.0 NUCLEATED RBC % (test code=NRBC%) 0.0 % 0-0 NEUTROPHIL # (test code=NT#) 8.42 x10 3/uL 2.0-7.6 IMMATURE GRANULOCYTE # (test code=IG#) 0.02 x10 3/uL 0.00-0.03 LYMPHOCYTE # (test code=LY#) 0.54 x10 3/uL 1.0-3.8 MONOCYTE # (test code=MO#) 0.14 x10 3/uL 0.1-0.8 EOSINOPHIL # (test code=EO#) 0.01 x10 3/uL 0.0-0.2 BASOPHIL # (test code=BA#) 0.01 x10 3/uL 0.0-0.2 NUCLEATED RBC # (test code=NRBC#) 0.00 x10 3/uL 0.0-0.1 MANUAL DIFF REQUIRED (test code=MDIFF) NO SLIDE REVIEWED, CONSISTENT WITH AUTO DIFF. PLT [id number] 20:44:00* Test Item Value Reference Range Comments PLATELET ESTIMATE (test code=PLTEST) THOUSAND ADEQUATE CBC W/AUTO [id number] 20:44:00* Test Item Value Reference Range Comments WHITE BLOOD CELL (test code=WBC) 9.14 x10 3/uL 4.5-11.0 RED BLOOD CELL (test code=RBC) 4.55 x10 6/uL 3.54-5.02 HEMOGLOBIN (test code=HGB) 11.7 g/dL 11.0-15.0 HEMATOCRIT (test code=HCT) 34.2 % 33.0-45.0 MEAN CELL VOLUME (test code=MCV) 75.2 fL 81.0-99.0 MEAN CELL HGB (test code=MCH) 25.7 pg 27.0-33.0 MEAN CELL HGB CONCETRATION (test code=MCHC) 34.2 g/dL 33.0-37.0 RED CELL DISTRIBUTION WIDTH CV (test code=RDW) 15.1 % 11.5-14.5 RED CELL DISTRIBUTION WIDTH SD (test code=RDW-SD) 41.5 fL 37.0-54.0 PLATELET COUNT (test code=PLT) 53 x10 3/uL 150-400 IMMATURE PLATELET FRACTION (test code=IPF) 5.4 % 0.9-11.2 NEUTROPHIL % (test code=NT%) 92.2 % 56.0-77.0 IMMATURE GRANULOCYTE % (test code=IG%) 0.2 % 0.0-2.0 LYMPHOCYTE % (test code=LY%) 5.9 % 14.0-32.0 MONOCYTE % (test code=MO%) 1.5 % 4.8-9.0 EOSINOPHIL % (test code=EO%) 0.1 % 0.3-3.7 BASOPHIL % (test code=BA%) 0.1 % 0.0-2.0 NUCLEATED RBC % (test code=NRBC%) 0.0 % 0-0 NEUTROPHIL # (test code=NT#) 8.42 x10 3/uL 2.0-7.6 IMMATURE GRANULOCYTE # (test code=IG#) 0.02 x10 3/uL 0.00-0.03 LYMPHOCYTE # (test code=LY#) 0.54 x10 3/uL 1.0-3.8 MONOCYTE # (test code=MO#) 0.14 x10 3/uL 0.1-0.8 EOSINOPHIL # (test code=EO#) 0.01 x10 3/uL 0.0-0.2 BASOPHIL # (test code=BA#) 0.01 x10 3/uL 0.0-0.2 NUCLEATED RBC # (test code=NRBC#) 0.00 x10 3/uL 0.0-0.1 MANUAL DIFF REQUIRED (test code=MDIFF) NO SLIDE REVIEWED, CONSISTENT WITH AUTO DIFF. PLT [id number] 20:44:00* Test Item Value Reference Range Comments PLATELET ESTIMATE (test code=PLTEST) THOUSAND ADEQUATE C REACTIVE [id number] 20:35:00* Test Item Value Reference Range Comments C REACTIVE PROTEIN (test code=CRP) 23.5 MG/L 0.0-2.9 HEPATIC FUNCTION [id number] 20:35:00* Test Item Value Reference Range Comments TOTAL PROTEIN (test code=PROT) 5.5 g/dL 6.4-8.2 ALBUMIN (test code=ALB) 2.60 g/dL 3.4-5.0 BILIRUBIN TOTAL (test code=BILT) 0.3 MG/DL <1.5 BILIRUBIN DIRECT (test code=BILD) 0.10 MG/DL 0.0-0.30 BILIRUBIN INDIRECT (test code=BILIND) 0.20 MG/DL SGOT/AST (test code=AST) 83 IUnit/L 15-37 SGPT/ALT (test code=ALT) 110 IUnit/L 15-65 ALKALINE PHOSPHATASE TOTAL (test code=ALKP) 120 IUnit/L 20-125 TROPONIN-I [id number] 20:21:00* Test Item Value Reference Range Comments TROPONIN-I RAPID (test code=TROPIRAP) 0.00 ng/mL 0.00-0.08 Performed by certified wireline field operator at [facility] Negative: <=0.08 Positive: >=0.09An elevated troponin value alone is not sufficient todiagnose a myocardial infarction. Rather, the patient sclinical presentation (history, physical exam) and ECGshould be used in conjunction with troponin in thediagnostic evaluation of suspected myocardial infarction. Aserial sampling protocol is recommended to facilitate the identification of temporal changes in troponin levels characteristic of [place]. CBC W/AUTO [id number] 20:18:00* Test Item Value Reference Range Comments WHITE BLOOD CELL (test code=WBC) 9.14 x10 3/uL 4.5-11.0 RED BLOOD CELL (test code=RBC) 4.55 x10 6/uL 3.54-5.02 HEMOGLOBIN (test code=HGB) 11.7 g/dL 11.0-15.0 HEMATOCRIT (test code=HCT) 34.2 % 33.0-45.0 MEAN CELL VOLUME (test code=MCV) 75.2 fL 81.0-99.0 MEAN CELL HGB (test code=MCH) 25.7 pg 27.0-33.0 MEAN CELL HGB CONCETRATION (test code=MCHC) 34.2 g/dL 33.0-37.0 RED CELL DISTRIBUTION WIDTH CV (test code=RDW) 15.1 % 11.5-14.5 RED CELL DISTRIBUTION WIDTH SD (test code=RDW-SD) 41.5 fL 37.0-54.0 PLATELET COUNT (test code=PLT) x10 3/uL 150-400 IMMATURE PLATELET FRACTION (test code=IPF) 5.4 % 0.9-11.2 NEUTROPHIL % (test code=NT%) % 56.0-77.0 LYMPHOCYTE % (test code=LY%) % 14.0-32.0 NEUTROPHIL # (test code=NT#) x10 3/uL 2.0-7.6 LYMPHOCYTE # (test code=LY#) x10 3/uL 1.0-3.8 MANUAL DIFF REQUIRED (test code=MDIFF) CHEMISTRY 8 [id number] 20:14:00* Test Item Value Reference Range Comments ISTAT-SODIUM (test code=NAP) MMOL/L 134-147 ISTAT-POTASSIUM (test code=KP) MMOL/L 3.4-5.0 ISTAT-CHLORIDE (test code=CLP) MMOL/L 100-108 ISTAT CARBON DIOXIDE (test code=ISTAT-CO2) mmol/L 21-33 ISTAT CALCIUM IONIZED (test code=ISTAT-YASMIN) MG/DL 1.12-1.32 ISTAT-GLUCOSE (test code=GLUP) MG/DL 70-110 ISTAT-BUN (test code=BUNP) MG/DL 7-18 BEDSIDE CREATININE (test code=CREATBED) MG/DL 0.6-1.3 GLOMERULAR FILTRATION RATE POC (test code=GFRBED) 12 ML/MIN CHEMISTRY 8 [id number] 20:14:00* Test Item Value Reference Range Comments ISTAT-SODIUM (test code=NAP) 133 MMOL/L 134-147 ISTAT-POTASSIUM (test code=KP) 4.9 MMOL/L 3.4-5.0 ISTAT-CHLORIDE (test code=CLP) 97 MMOL/L 100-108 Performed by certified wireline field operator at [facility] ISTAT CARBON DIOXIDE (test code=ISTAT-CO2) 25.0 mmol/L 21-33 ISTAT CALCIUM IONIZED (test code=ISTAT-YASMIN) 0.99 MG/DL 1.12-1.32 ISTAT-GLUCOSE (test code=GLUP) 76 MG/DL 70-110 ISTAT-BUN (test code=BUNP) 114 MG/DL 7-18 BEDSIDE CREATININE (test code=CREATBED) 4.7 MG/DL 0.6-1.3 GLOMERULAR FILTRATION RATE POC (test code=GFRBED) 12 ML/MIN LACTIC ACID [id number] 20:14:00* Test Item Value Reference Range Comments LACTIC ACID POC (test code=LACTP) 0.4 MMOL/L 0.90-1.70 Performed by certified wireline field operator at [facility] - XR CHEST 1 [id number] 19:32:00 FAX: Tera Nelson MD [phone] Cammal: St: PRE Name: ERINN KAY [facility] : [birth year] Age/S: 59/F [address] [place] [address] Unit #: [id number] Loc: GGenevieveERS2 [place] [address] Phys: Tera Dunn MD Acct: [id number] Dis Date: Status: PRE ER PHONE #: [phone] Exam Date: 08/24/2019 1859 FAX #: [phone] Reason: AMS EXAMS: CPT CODE: [id number] XR CHEST 1 V 63431 Patient: ERINN JUNE. : 1960; Age: 59 years; Gender: Female. MR: [id number]. Order ing physician: Tera Dunn MD. PORTABLE CHEST AP: HISTORY: Altered mental status. COMPARISON: Chest x-ray 11/01. FINDINGS: Portable frontal view of the chest was obtaine d. The lungs are clear bilaterally. Calcified left hilar lymph nodes are compatible with previous granulomatous disease. The cardiomediastinal silhouette and pulmonary vasculature are unremarkable. The partially vi sualized upper abdomen is unremarkable. IMPRESSION: No acute d isease in the chest. SL: NEGRA-H Electronic ally Signed by Elsa Elizabeth on 08/24/2019 at 193 Reporte d and signed by: Samuel Elizabeth M.D. CC: Tera Dunn MD Technologist: RT Valencia(R) Trnscrd Date/Time/By: 08/24/2019 (1931) : By: [email or web address] Orig Print D/T: S: 08/24/2019 (1934) PAGE 1 Signed Report - CT HEAD/BRAIN W/O CONT 2019-08-24 19:18:00 Name: ERINN JUNE [facility] : 1960 Age/S: 59 / F [address] [place] [address] Unit #: [id number] Loc: [place] [address] Phys: Tera Dunn MD Acct: [id number] Dis Date: Status: PRE ER PHONE #: [phone] Exam Date: 08/24/2019 1905 FAX #: [phone] Reason: AMS EXAMS: CPT CODE: [id number] CT HEAD/BRAIN W/O CONT 02229 Patient: ERINN JUNE. : 1960; Age: 59 years; Gender: Female. MR: [id number]. Ordering physician: Tera Dunn MD. CT BRAIN WITHOUT INTRAVENOUS CONTRAST: HISTORY: Altered mental status. COMPARISON: CT head 11/05/2017. FINDINGS: Computed tomography of the brain was performed utilizing contiguous transaxial sections from skull base to the vertex without the administration of intravenous contrast. Coronal and sagittal reformatted images were obtained. All CT scans at this location are performed using dose optimization technique as appropriate to a performed exam including the following: -Automated exposure control. -Adjustment of mA and/or KV according to patient's size (this includes techniques or standardized protocols for targeted exams where dose is matched to indication/reason for exam; i.e. extremities or head). -Use of iterative reconstruction technique. -Total DLP: 656.25 mGy-cm There is prominence of the ventricles, cortical sulci and basilar cisterns compatible with age advanced involutional change. Marked periventricular and subcortical white matter hypodensities are compatible with advanced small vessel microvascular change. Encephalomalacia again noted involving right frontal horn periventricular white matter extending to involve caudate head, basal ganglia, and external capsule. Encephalomalacia of right thalamus also again noted. There is no evidence of midline shift, mass lesion, intraparenchymal hemorrhage, acute infarction, extra-axial collection or skull fracture. The posterior fossa is unremarkable. The partially visualized orbits, paranasal sinuses and mastoid air cells are unremarkable. IMPRESSION: 1. No evidence of acute intracranial pathology. PAGE 1 Signed Report (CONTINUED) Name: ERINN JUNE [facility] : 1960 Age/S: 59 / F [address] [place] [address] Unit #: [id number] Loc: [place] [address] Phys: Tera Dunn MD Acct: [id number] Dis Date: Status: PRE ER PHONE #: [phone] Exam Date: 08/24/2019 190 FAX #: [phone] Reason: AMS EXAMS: CPT CODE: [id number] CT HEAD/BRAIN W/O CONT 22265 <Continued> 2. Age related involutional and small vessel microvascular changes as described. Old right-sided ischemic injuries as described. SL: SHANNAN at 1918 Reported and signed by: Samuel Elizabeth M.D. CC: Tera Dunn MD Technologist:Elayne Lazcano, RT(R)(CT) CTDI: DLP: Trnscb Date/Time: 08/24/2019 (1917) [email or web address] Orig Print D/T: S: 08/24/2019 (1920) PAGE 2 Signed Report
[2019-10-26] MEDS ORDERED: DEXTROSE 5%/0.45% SOD CHL 1,000 ML IV ONE ×2 (03:00→07:00)
[2019-10-26 03:39] LABS: HEMATOCRIT 29.1 % (34.2-44.1); HEMOGLOBIN 9.2 g/dL (12.0-16.0); LYMPHOCYTES # (AUTO) 0.1 (1.0-3.2); LYMPHOCYTES % 10.9 % (18.0-39.1); MEAN CORPUSCULAR HEMOGLOBIN 27.5 pg (28-32); MEAN CORPUSCULAR HGB CONC 31.6 g/dL (31-35); MEAN CORPUSCULAR VOLUME 86.9 fL (81-99); NEUTROPHILS # (AUTO) 0.6 (2.1-6.9); NEUTROPHILS % 89.1 % (38.7-80.0); PLATELET COUNT 76 x10e3/uL (140-360); RED BLOOD COUNT 3.35 x10e6/uL (3.6-5.1); RED CELL DISTRIBUTION WIDTH 15.9 % (11.7-14.4)
[2019-10-26 04:03] LABS: CREATINE KINASE MB 6.7 ng/mL (0-5.0)
[2019-10-26 04:14] LABS: ANION GAP 13.2 mmol/L (8-16); CALCIUM 8.8 mg/dL (8.4-10.2); CREATININE, SERUM 1.95 mg/dL (0.57-1.11); POTASSIUM 4.2 mmol/L (3.5-5.1)
--- NOTE | 2019-10-26 04:25 | Diagnostic Imaging Report ---
EXAMINATION: CHEST SINGLE (PORTABLE) COMPARISON: None INDICATION: ^ams ^[id number] ^0350 ^Y DISCUSSION: Frontal view of the chest obtained at 0355 hours. HEART AND MEDIASTINUM: The heart is top normal in size LINES: None. LUNGS/PLEURA: Bilateral pleural effusions and bilateral airspace opacities, right lung more severe than left. Retrocardiac airspace disease is present. No pneumothorax. BONES AND SOFT TISSUES: No focal osseous lesion. The soft tissues are normal. ABDOMEN: 2 adjacent 14 mm cylindrical radiodensities in the left upper quadrant may represent endoscopically placed hemostatic clips. IMPRESSION: Multifocal airspace opacities suggestive of pneumonia or pulmonary edema. Bilateral pleural effusions. Left lower lobe atelectasis. Signed by: Dr. Jc Foy MD on 10/26/2019 4:23 AM
[2019-10-26 04:49] LABS: HEMATOCRIT 24.7 % (34.2-44.1); HEMOGLOBIN 7.9 g/dL (12.0-16.0); LYMPHOCYTES % 11.8 % (18.0-39.1); MEAN CORPUSCULAR HEMOGLOBIN 27.6 pg (28-32); MEAN CORPUSCULAR VOLUME 86.4 fL (81-99); NEUTROPHILS # (AUTO) 0.3 (2.1-6.9); NEUTROPHILS % 88.2 % (38.7-80.0); PLATELET COUNT 57 x10e3/uL (140-360); RED BLOOD COUNT 2.86 x10e6/uL (3.6-5.1); RED CELL DISTRIBUTION WIDTH 15.6 % (11.7-14.4)
--- NOTE | 2019-10-26 05:30 | Diagnostic Imaging Report ---
CT chest without enhancement CPT code: 17458 INDICATION: Hypoglycemia and altered level of consciousness TECHNIQUE: Thin collimation axial images obtained from the thoracic inlet to the level of the diaphragm without intravenous contrast. Dose reduction techniques used: Automated exposure control, adjustment of the mAs and/or kVp according to patient size, standardized low-dose protocol, and/or iterative reconstruction technique. RADIATION DOSE: Total DLP: 512.2 mGy*cm Estimated effective dose: (DLP x 0.015 x size factor) mSv CTDIvol has been reviewed. It is below the limits set by the Radiation Protocol Committee (RPC). COMPARISON: Chest x-ray 0355 hours. CHEST FINDINGS: Lymph nodes: No enlarged axillary or supraclavicular lymph nodes appreciated given the lack of intravenous contrast. There are calcified left hilar lymph nodes. No gross evidence of mediastinal lymphadenopathy given the absence of intravenous contrast. Thyroid/base of neck: The thyroid gland is normal in size without mass in the visualized parenchyma. A right EJ vein catheter is present. Mediastinum: The rodriges of the aorta, great vessels, and the left ventricle are visible suggestive of anemia. The heart is enlarged without pericardial effusion. There is air distending the upper esophagus at the level of the juan. A small amount of air is in the lower esophagus. The main pulmonary artery measures 2.7 cm Lungs: Right: Dense airspace opacities in the aerated portions of the upper, middle, and lower lobes. Near complete atelectasis of the left lower lobe. No interstitial edema. Left: Dense airspace opacities in the posterior upper lobe and the majority of the lower lobe. No interstitial edema. Airways: No filling defects. Pleura: Dependent right pleural effusion measures 3.3 cm. Left pleural effusion measures 1.7 cm. ABDOMEN FINDINGS: Diffuse abdominal ascites. Radio-opaque foreign body within the stomach and results in beam hardening artifact. Bones: Diffuse sclerosis of the skeleton suggestive of renal osteodystrophy. Lucency in the superior endplate of T10. Soft tissues: Diffuse subcutaneous edema. There are several droplets of air in the lower neck may be the result of medical support assistant placement. IMPRESSION: 1. Multifocal airspace opacities in each lung are suggestive of pneumonia. 2. Moderate sized right pleural effusion, small left pleural effusion and diffuse anasarca. Ascites. 3. Hypoattenuation of the cardiac chambers and the aorta are suggestive of anemia. 4. Increased attenuation of the skeleton is suggestive of renal osteodystrophy. Signed by: Dr. Jc Foy MD on 10/26/2019 5:25 AM
--- NOTE | 2019-10-26 05:34 | NUR ---
PATIENT IS HAVING CHANGES IN SPO2, DR GAINES AND STAFF AT BEDSIDE ASSESING SITUATION.
[2019-10-26] MEDS ORDERED: AZITHROMYCIN 500MG/NS 250 ML 250 ML IV STA (05:35)
[2019-10-26] MEDS ORDERED: CEFEPIME 2 GM/NS 0.9% 100 ML 100 ML IV STA (05:35)
--- NOTE | 2019-10-26 05:35 | NUR ---
STAFF IS ATTEMPTING TO REACH FAMILY AT THIS MOMENT, PATIENT IS CRITICAL
--- NOTE | 2019-10-26 05:37 | NUR ---
DR GAINES SPEAKING TO FAMILY MEMBER FABIOLA REGARDING PATIENTS CRITICAL CONDITION AT THIS MOMENT, STAFF AT BEDSIDE
[2019-10-26] MEDS ORDERED: VANCOMYCIN 1GM/NS 250 ML 250 ML IV STA (05:47)
[2019-10-26] MEDS ORDERED: MEROPENEM 1GRAM 1 GM in SODIUM CHLORIDE 0.9% 100 ML 100 ML IV STA (05:47)
[2019-10-26] MEDS ORDERED: ETOMIDATE 2 MG/ML 10 ML INJ IV STA (06:34)
[2019-10-26] MEDS ORDERED: VECURONIUM BROMIDE FOR INJ 20 MG VIAL IV STA (06:34)
[2019-10-26 06:40] LABS: ABG PCO2 43 mmHg (41-51)
[2019-10-26 06:41] LABS: ABG HCO3 26 mmol/L (23-28); ABG PO2 47 mmHg (80-105)
[2019-10-26] MEDS ORDERED: MEROPENEM 1 GM VIAL ONE (06:45)
[2019-10-26] MEDS ORDERED: MEROPENEM 1GM 100 ML IV ONE (06:47)
[2019-10-26] MEDS ORDERED: SODIUM CHLORIDE 0.9% 1000ML 1,000 ML IV ONE (07:00)
[2019-10-26] MEDS ORDERED: AZITHROMYCIN 500MG/NS 250 ML 250 ML IV SCH (07:00)
[2019-10-26] MEDS ORDERED: MEROPENEM 1GRAM 1 GM in SODIUM CHLORIDE 0.9% 100 ML 100 ML IV SCH ×2 (07:00→20:00)
[2019-10-26 07:03] LABS: ALBUMIN 1.5 g/dL (3.5-5.0); BILIRUBIN,DIRECT 0.1 mg/dL (0.0-0.5)
--- NOTE | 2019-10-26 07:05 | Diagnostic Imaging Report ---
EXAMINATION: CHEST SINGLE (PORTABLE) COMPARISON: CT chest 0458 hours, chest x-ray 0355 hours INDICATION: ^S/P INTUBATION PER DR GAINES DISCUSSION: Frontal view of the chest obtained at 0639 hours. HEART AND MEDIASTINUM: The mediastinum is normal visualized and is likely shifted to the left. LINES: Endotracheal tube terminates in the right main bronchus LUNGS: Complete opacification of the left lung. Patchy airspace opacities in the right lung are redemonstrated. PLEURA: Right pleural effusion is stable. Left pleural effusion is poorly visualized BONES AND SOFT TISSUES: No focal osseous lesion. Hemostatic clips in the stomach are stable. IMPRESSION: Malpositioned endotracheal tube. It should be retracted by approximately 4 cm. New complete opacification of the left lung secondary to atelectasis and infiltrates. Findings given to Dr. Gaines at the time of dictation. Confirmed. Signed by: Dr. Jc Foy MD on 10/26/2019 7:03 AM
[2019-10-26 07:14] LABS: INR 1.33; PROTHROMBIN TIME 17.4 seconds (11.9-14.5)
[2019-10-26 07:15] LABS: PARTIAL THROMBOPLASTIN TIME 44.5 seconds (23.8-35.5)
--- NOTE | 2019-10-26 07:17 | NUR ---
nursing narrative note Patient arrived to the ER due to hypoglycemia. However upon further assesment it was noted that patient was also hypothermic. Bear hugger and warming blanket applied. Bedside glucose checks implemented q1hour. Dextrose 50% was given as indicated and ordered by MD. History was unclear as it was difficult to obtain from [facility]. Patient began deterioriating from a respiratory standpoint thru the night. Implementations done include abg, respiratory therapy intervention, stat ct scan, and chest xray. Upon Further ct scan results the differential medical diagnosis leaned in favor of septic shock in addition to hypoglycemic event. Code sepsis was initiated as per protocol in the Emergency Room. The decision was made to intubate at 0620, etomidate and vecoronium given per md orders and documented. 119/71 p.107 r.17 after successful intubation. 24" at the lip- et tube pulled back 2" per radiology recommendation, rt at bedside. 450 tv r.16 f102 50% orders at bedside. Patients critical care medical provider arrived in ED to assist . Patient started on broad spectrum antibiotics per protocol. Patient was transferred to ICU immediately upon orders of to start a central line in the ICU. Sushila ALVARADO was given report in full and given report on all interventions made. Blood pressure, 02 sat, temperature, and pulse were monitored every 15 minutes. Patient was transfereed to ICU. Upon all time spent in the ed, nursing staff did not leave bedside implementing all medical orders given.
[2019-10-26] MEDS ORDERED: PROPOFOL IV EMULSION 10MG/ML 100 ML IV SCH (08:15)
[2019-10-26] MEDS ORDERED: MEROPENEM 1GM 100 ML IV SCH ×2 (08:15→20:00)
--- NOTE | 2019-10-26 08:31 | Diagnostic Imaging Report ---
EXAMINATION: CHEST XRAY LINE PLACEMENT COMPARISON: Chest x-ray most performed earlier same day. INDICATION: ^cvc PLACEMENT ^20191026 ^[id number] DISCUSSION: HEART AND MEDIASTINUM: The heart is top normal in size LINES: The endotracheal tube has been retracted in appropriate position. There is a new right IJ catheter with distal tip in SVC. LUNGS/PLEURA: Left pleural effusion has improved. Right pleural effusion is unchanged. Bilateral hazy opacities greater on the right could be due to pulmonary edema or multifocal pneumonia. No pneumothorax. BONES AND SOFT TISSUES: No focal osseous lesion. The soft tissues are normal. IMPRESSION: Left pleural effusion has improved. Right pleural effusion is unchanged. Bilateral hazy opacities worsened on the right could be due to pulmonary edema or multifocal pneumonia. Signed by: Wander Caro MD on 10/26/2019 8:29 AM
[2019-10-26] MEDS ORDERED: VANCOMYCIN 1GM/NS 250 ML 250 ML IV ONE (09:15)
[2019-10-26 09:31] LABS: ABG HCO3 23 mmol/L (23-28)
[2019-10-26 09:57] LABS: ABG PH 7.61 (7.31-7.41)
[2019-10-26 09:58] LABS: ABG PCO2 20 mmHg (41-51)
[2019-10-26 09:59] LABS: ABG PO2 35 mmHg (80-105)
[2019-10-26] MEDS ORDERED: DEXTROSE 50% SYRINGE 50 ML IV ONE (10:47)
[2019-10-26] MEDS ORDERED: NOREPINEPHRINE 8 MG/D5W 250 ML 250 ML ONE (10:54)
[2019-10-26] MEDS ORDERED: LORAZEPAM INJ 2 MG/ML VIAL IV PRN (11:00)
[2019-10-26] MEDS ORDERED: DEXMEDETOMIDINE HCL 200 MCG in SODIUM CHLORIDE 0.9% 50ML 48 ML IV PRN (11:00)
[2019-10-26] MEDS: NOREPINEPHRINE INJ 4MG/4ML 8 MG in DEXTROSE 5% 250ML 250 ML IV SCH (11:21)
[2019-10-26 12:14] LABS: PLATELET ESTIMATE MODERATELY DECREASED; PLATELET MORPHOLOGY COMMENT FEW LARGE
[2019-10-26 12:40] LABS: ABG PCO2 27 mmHg (41-51); ABG PH 7.53 (7.31-7.41)
[2019-10-26 12:41] LABS: ABG HCO3 22 mmol/L (23-28); ABG PO2 52 mmHg (80-105)
--- NOTE | 2019-10-26 12:44 | Consultation ---
DATE OF CONSULTATION: 10/26/2019 Pulmonary Critical Care Consultation CHIEF COMPLAINT: Bilateral pulmonary infiltrates, respiratory failure, and probable pneumonia. HISTORY OF PRESENT ILLNESS: The patient is a 59-year-old woman. She has a history of end-stage renal disease and receives dialysis 3 times a week through [facility]. She also has a history of a stroke and hemiparesis. She is bedbound and stays at a nursing facility. She was sent from the nursing facility to the emergency department with low blood sugar and decreased responsiveness. They also noted a low temperature. After arrival in the emergency department, she was found to have bilateral infiltrates and a white blood cell count of 0.6. She was intubated and placed on mechanical ventilation. PAST MEDICAL HISTORY: 1. Prior cerebrovascular accident. 2. End-stage renal disease. 3. Hypertension. 4. Diabetes. PAST SURGICAL HISTORY: 1. Placement of a dialysis fistula. 2. Right patella fracture. SOCIAL HISTORY: The patient stays at a nursing facility. She is not an active smoker or drinker. ALLERGIES: THERE ARE NO KNOWN DRUG ALLERGIES. FAMILY HISTORY: Family history is not obtainable at this time. REVIEW OF SYSTEMS: She did not have fevers, although she did have a low temperature. She had no reports of headache. She has had chronic dysphagia and difficulty swallowing. She did not describe chest pain. She had worsening dyspnea and cough. She had no abdominal pain. She had no nausea or vomiting. She has no leg edema. She does have some chronic neurological problems and hemiparesis. PHYSICAL EXAMINATION: VITAL SIGNS: The blood pressure is 104/70 and the pulse is 99. Her temperature is 91.5. She is on an assist-control mode of ventilation at a rate of 16 with a tidal volume of 400 and a PEEP of 8. HEENT: Shows no facial swelling or erythema. She has a right IJ line in place. The site looks clean. There is no drainage. CARDIAC: Reveals a regular rate and rhythm with normal S1 and S2. LUNGS: Auscultation of lungs reveals crackles in both lung white. There is no wheezing. ABDOMEN: Soft and nontender. There is no rebound or guarding. EXTREMITIES: Shows no leg edema or calf tenderness. There is a hemiparesis and aphasia. LABORATORY DATA: White blood cell count is 0.34 and the hemoglobin is 7.9. The platelet count is 57. The PT is 17.4 and the PTT is 4.5. The lactic acid is elevated at 3.2 and BNP is 494. The BUN to creatinine ratio is 31 to 1.95. The other electrolytes are within normal limits. RADIOGRAPHIC DATA: Chest CT shows bilateral alveolar opacities. There is a small to moderate right pleural effusion. There is also some ascites. IMPRESSION: 1. Acute respiratory failure. 2. Healthcare-associated pneumonia with severe sepsis, present on admission. 3. Metabolic encephalopathy. 4. Moderate protein-calorie malnutrition. 5. End-stage renal disease. 6. Diabetes with hypoglycemia. 7. Thrombocytopenia. 8. Probable disseminated intravascular coagulation. PLAN: 1. The patient has received 1 L of IV fluids. We will hold off on additional fluids because of her end-stage renal disease. 2. The patient is pancultured and has received broad-spectrum antibiotics to cover for healthcare-associated pneumonia. 3. Continue assist-control mode of ventilation and repeat ABG. 4. Continue to monitor blood counts and coagulation factors. 5. Begin enteral feedings. 6. Neutropenic precautions. 7. Continue dialysis. 8. Prognosis remains very poor. 9. Case discussed with emergency department, Respiratory and nursing staff. Joshua Albarran MD LM/MODL /[id number]
--- NOTE | 2019-10-26 12:44 | Operative Report ---
DATE OF PROCEDURE: 10/26/2019 SURGEON: Joshua Albarran MD PREOPERATIVE DIAGNOSIS: End-stage renal disease. POSTOPERATIVE DIAGNOSIS: End-stage renal disease. CONSENT: Procedure was considered emergent because of the uremia, sepsis superimposed on the emergent. ANESTHESIA: 1% lidocaine was used for local anesthesia. PROCEDURE: Central line placement under ultrasound guidance. OPERATIVE REPORT: The patient was placed in a supine position. The right neck was prepped sterilely with chlorhexidine. A full length sterile drape, sterile gown, and sterile gloves and mask were used. An ultrasound machine was used to locate the right internal jugular vein. The right internal jugular vein was then cannulated under direct visualization with a 16-gauge needle. A wire was placed through the needle. The dilator was then used over the wire to dilate the skin. A triple-lumen catheter was placed over the wire by the Seldinger technique. All the ports flushed. COMPLICATIONS: None. ESTIMATED BLOOD LOSS: None. Joshua Albarran MD H/MODL /[id number]
[2019-10-26] MEDS: DEXTROSE 50% SYRINGE 50 ML IV PRN ×2 (13:30→20:17)
[2019-10-26] MEDS ORDERED: SEROQUEL25 MG PO (13:31)
[2019-10-26] MEDS ORDERED: PANTOPRAZOLE SO40 MG PO (13:31)
[2019-10-26] MEDS ORDERED: SUCRALFATE1 GM PO (13:31)
[2019-10-26] MEDS ORDERED: DEXTROSE 10% 1,000 ML IV SCH (15:00)
[2019-10-26] MEDS ORDERED: DEXMEDETOMIDINE 200MCG/NS 50ML 50 ML IV PRN (15:45)
--- NOTE | 2019-10-26 15:45 | Diagnostic Imaging Report ---
EXAM: Abdomen Radiograph 1 View(s) INDICATION: ^OGT placement ^20191026 ^[id number] COMPARISON: None FINDINGS: No abnormalities in the lower chest. There is an nasogastric tube in place with distal tip in stomach. Normal volume of stool in the colon. No dilated loops of bowel. No abnormal abdominal calcifications.. No abnormal soft tissue masses. No pneumoperitoneum. No acute osseous abnormality. IMPRESSION: No acute abdominal radiographic abnormality. Signed by: Wander Caro MD on 10/26/2019 3:43 PM
[2019-10-26 15:56] LABS: ANION GAP 17.3 mmol/L (8-16); CALCIUM 7.9 mg/dL (8.4-10.2); CREATININE, SERUM 1.86 mg/dL (0.57-1.11); POTASSIUM 3.3 mmol/L (3.5-5.1)
[2019-10-26] MEDS ORDERED: SODIUM CHLORIDE 0.9% 500ML 500 ML ONE (17:26)
[2019-10-26] MEDS ORDERED: VASOPRESSIN 100 UNIT in DEXTROSE 5% 100ML 100 ML IV PRN (17:30)
[2019-10-26] MEDS ORDERED: SODIUM CHLORIDE 0.9% 500ML 500 ML IV ONE (17:30)
[2019-10-26] MEDS ORDERED: HYDROCORTISONE SOD SUCCINATE 100 MG VIAL ONE (17:57)
[2019-10-26] MEDS ORDERED: HYDROCORTISONE SOD SUCCINATE 100 MG VIAL IV ONE (18:00)
[2019-10-26] MEDS ORDERED: ALBUMIN 25% 25GM 100ML 0.25 GM/ML BTL IV SCH (18:30)
[2019-10-26] MEDS ORDERED: VECURONIUM BROMIDE FOR INJ 20 MG VIAL ONE (18:33)
[2019-10-26] MEDS ORDERED: ETOMIDATE 40 MG/ 20ML VIAL IV ONE (18:33)
--- NOTE | 2019-10-26 19:00 | NUR ---
Report received. Assumed care. Assessment done. See interventions. Orally intubated with 7.5 FR ETT secured at 22cm at the lip. Vent settings: TV 350, FIO2 60%, PRVC 16 and PEEP 12. IVS D50 @ 50ml/hr, Levophed 18mcg/min or 33.8 ml/hr, Vasopressin @ 0.07 units/min or 4.2 ml/hr.
[2019-10-26] MEDS: ALBUMIN 25% 12.5GM 50ML 100 ML IV SCH (19:03)
[2019-10-26] MEDS ORDERED: SODIUM BICARBONATE 8.4% SYRING 150 ML in DEXTROSE 5% 1,000 ML IV SCH (19:15)
--- NOTE | 2019-10-26 19:16 | NUR ---
Pt arrived from ER at 0730. RIJ placed emergently by Dr. Mauricio Albarran at bedside due to poor IV access, unable to contact family at this time due to emergent need. Pt came with Randee hugger and warming blanket due to hypothermia from ER. Stat chest x ray ordered to verify placement. Per Dr. Albarran line ok to use. 1 L bolus given. Vancomycin reordered by pharmacy due to not being given in ER before transfer to ICU. Pacheco placed per MD order. Respiratory did ABG, Dr. Mauricio Albarran aware of results and adjusted vent settings. Pt breathing over the ventilator, orders given for sedation. Repeat ABG ordered and Dr. Mauricio Albarran called with results, orders given to adjust settings, respiratory therapist aware. Dr. Mauricio Albarran notified that blood cultures are growing. Pt's daughter came to visit, RN filled out admission questions based on the family member's knowledge due to pt being intubated and sedated at this time. Dr. Mauricio Albarran notified of hypotension and low blood sugars. Orders given for Levophed. Dr. Mayo paged regarding new consult. Dr. Albarran notified of Lactic acid results and low blood sugars, orders given for D10 drip. OGT inserted per order, kub ordered to verify placement. 1700- Pt having abnormal heart rhythms and hypotension. Stat ekg ordered. Dr. Mauricio albarran and Dr. Kennedy at bedside at this time. Orders given to start vasopressin, steroids, albumin and [address] Kennedy and Dr. Albarran spent significant amount of time at the bedside talking to daughter about code status and prognosis. Pt currently maxed out on both levophed and Vassopressin. Dr. Anderson's office contacted and informed of new consult. Plans for dialysis tomorrow. 1809- Dr. Kennedy gave orders to change IV fluids. Addendum: 10/26/19 at 1936 by Keyana Wing RN Family member is Kate Lopez at bedside
--- NOTE | 2019-10-26 19:30 | NUR ---
IV D5W with NaHCO3 started at 75ml/hr & D10 dcd per orders.
--- NOTE | 2019-10-26 19:30 | NUR ---
Call to Dr. Martínez for consult. Awaiting callback.
--- NOTE | 2019-10-26 19:51 | NUR ---
[facility] dialysis contacted for dialysis tomorrow.
--- NOTE | 2019-10-26 20:15 | NUR ---
Blood sugar 53. D50 given.
[2019-10-26] MEDS ORDERED: SODIUM CHLORIDE 0.9% 250ML 250 ML ONE (20:26)
--- NOTE | 2019-10-26 20:41 | History and Physical ---
CHIEF COMPLAINT: Hypothermic altered mental status, respiratory failure status post intubation, being treated for underlying septic shock. 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 Reportedly treated she believes underlying infection and hypoglycemia. The patient's daughter is a very poor historian and the patient is currently intubated on a mechanical ventilator. I am seeing that during the hospital stay at [facility], she seems to have improved and she was transitioned to a snf facility here at [facility]. While at [facility], she was apparently doing well for about a month according to the daughter, then on Sunday she was told that she will be discharged yesterday and then early this morning, the patient was found to be unresponsive, had fevers, not doing well, found to be hypothermic, hypotensive, and was sent to the ER for further evaluation and management. While here, the patient was evaluated by the ER physician, found to be hypothermic and in septic shock. The patient was then intubated, sedated, and sent to the ICU. The patient currently has a central line initiated by Pulmonary Critical Care, started on IV pressors. The patient's overall state is being treated for underlying septic shock. I had a long discussion with the patient's daughter at bedside that overall state of her mother is severely poor and is in very critical condition. REVIEW OF SYSTEMS: Pertinent positives: Hypothermia, metabolic encephalopathy, questionable fever, hypotension. Unable to obtain the rest of the 14-point review of systems as the patient is currently intubated and sedated. ALLERGIES: ACETAMINOPHEN AND CODEINE. HOME MEDICATIONS: 1. Protonix. 2. Seroquel. 3. Carafate. PAST MEDICAL HISTORY: History of CVA in the past with residual weakness, hypertension, acid reflux. PAST SURGICAL HISTORY: Unable to obtain. FAMILY HISTORY: Unable to obtain. SOCIAL HISTORY: According to the daughter, no drugs, no alcohol. [facility] from [facility]. LABORATORY DATA: Labs show white count is 0.34, hemoglobin 7.8, hematocrit 24.7, platelets of 57. Coagulation; PT 17, INR 1.33, PTT 44. Chemistry sodium 135, potassium is 3.3, chloride 101, bicarb 20, anion gap of 17. BUN is 30, creatinine is 1.86, glucose is 63. Lactic acid on admission 3.2, 4.8, now 8.9. Glucose is 93, calcium is 7.9, total bilirubin is 0.2. AST is 46. ALT is 20. CK is 45. Albumin is 1.5. Troponins were negative. MICROBIOLOGY: Blood cultures 2 of 2 are positive for gram-negative rods. Sputum cultures are pending. IMAGING STUDIES: Chest x-ray shows evidence of bilateral pleural effusions with lower lung lower lobe atelectasis with underlying pneumonia, pulmonary edema. CT of the chest shows multifocal airspace opacities in each lung suggestive of pneumonia. Moderate right-sided pleural effusion with small left pleural effusion and diffuse anasarca and ascites; has evidence of underlying anemia and there is evidence of renal osteodystrophy. Abdominal x-ray, no acute Intraabdominal radiographic abnormality. PHYSICAL EXAMINATION: VITAL SIGNS: Temperature is 99, pulse is 102, respiratory rate is 33. She is on a mechanical ventilator. There was a blood pressure reading as low as 66/88, last recorded was 176/91 after on IV pressors. GENERAL: She is intubated, sedated. HEENT: Intubated and sedated. PULMONARY: Intubated and sedated, was clear to auscultation. CARDIOVASCULAR: Positive S1, S2. No murmurs, rubs, or gallops appreciated. ABDOMEN: Soft, nondistended, and nontender to palpation. Bowel sounds present. MUSCULOSKELETAL: Unable to assess, intubated and sedated. NEUROLOGIC: Intubated and sedated. SKIN: Intact. Warm to touch. Good cap refill. PSYCHIATRIC: Intubated and sedated. EXTREMITIES: No edema, very cachectic on exam. IMPRESSION: 1. Septic shock with multiorgan failure. 2. End stage renal disease, on hemodialysis. 3. Pancytopenia, concerning for underlying disseminated intravascular coagulation. 4. Hypotension, on IV pressors. 5. Type 2 diabetes, now hypoglycemic. 6. Acute respiratory failure, now intubated and sedated on mechanical ventilator. 7. Healthcare-associated pneumonia. 8. Bacteremia with gram-negative rods. PLAN: At this time, the patient maintains on the mechanical ventilator on sedation. The patient has respiratory failure, is currently intubated and sedated on a mechanical ventilator, being managed by Pulmonary Critical Care. She is maintained on broad-spectrum IV antibiotics. I will go ahead and get ID consultation. Repeat blood cultures as the 1st two sets are gram-negative rods. Sputum cultures are pending. We will go ahead and get a UA with culture, which may be helpful. As for her ESRD, her electrolytes are stable. We will go ahead and consult with her livestock auctioneer. As for her pancytopenia, I did go ahead and consult with Hematology. The patient will likely needs some Neupogen. This could all be secondary to DIC. As for hypotension, she is currently on two IV pressors, albumin 25 g IV q.6 hours scheduled as well as Solu-Cortef 100 mg bolus x1 with 50 mg q.6 hours scheduled. As for the hypoglycemia, she is on D10 and she has also received some steroids for her septic shock, which should help significantly. We are going to monitor the cultures, continue on broad-spectrum IV antibiotics. Her overall prognosis is very poor. I had a long discussion with the patient's daughter at bedside and spent more than 35 minutes in discussing overall findings with the daughter. I discussed with her and I showed her all the lab findings including the imaging studies performed when she came into the emergency room. She was found to be hypothermic, now currently in severe multiorgan septic shock. I discussed with her that her overall prognosis is significantly poor and despite that she still wanted her mother to be full code. I discussed with her due to her grim prognosis that chest compressions will really hurt her mom because her mom is severely cachectic with severe malnutrition. Despite that, she still wants her mother to be full code, which is still currently in the system. I did answer all her questions at bedside. She verbalized understanding and agrees to plan of care. Also, Pulmonary Critical Care, discussed the case with them as well and spoke with her as well and discussed with her that her overall prognosis is severely poor and he also discussed with her about the code status and at this time, she still wants to be full code. Despite me in the critical care doctor discussion with the daughter about her overall prognosis is being poor, she states that she will talk to her sibling, who lives about of state and tell her about the poor prognosis that she is currently in. We will continue with same plan of care. Aggressively treat accordingly. Hopefully, the patient will turn around, but overall prognosis is significantly poor. CONSULTANTS: We will have ID, Hematology, Nephrology and Pulmonary Critical Care on this case. Also, we will consult Palliative Care. Once again, I have discussed code status with the patient's daughter. Discussed overall lab findings. Discussed imaging studies and discussed the recommendations by the consultants. Despite all that she still wants her mother to be full code despite her overall prognosis is significantly poor. MD PEGGY Barton/BEBETOL /[id number]
[2019-10-26 22:18] LABS: ANION GAP 19.5 mmol/L (8-16); CALCIUM 7.3 mg/dL (8.4-10.2); CREATININE, SERUM 1.94 mg/dL (0.57-1.11); POTASSIUM 3.5 mmol/L (3.5-5.1)
--- NOTE | 2019-10-26 22:42 | NUR ---
2nd call to Dr. Martínez for consult.
--- NOTE | 2019-10-26 22:54 | NUR ---
Dr. Martínez returned call re: consult. Will see in AM.
--- NOTE | 2019-10-26 23:00 | NUR ---
Blood sugar 56. D50 given.
--- NOTE | 2019-10-26 23:25 | NUR ---
Attempted to obtain blood cultures without success. Unable to get enough urine for culture.
[2019-10-27] VITALS: BP 101/71
[2019-10-27] MEDS ORDERED: HYDROCORTISONE SOD SUCCINATE 100 MG VIAL IV SCH
[2019-10-27] MEDS: ALBUMIN 25% 12.5GM 50ML 100 ML IV SCH (00:16)
[2019-10-27] MEDS: NOREPINEPHRINE INJ 4MG/4ML 8 MG in DEXTROSE 5% 250ML 250 ML IV SCH (00:39)
[2019-10-27 00:40] VITALS: BP 88/67
[2019-10-27 01:00] VITALS: BP 98/72
--- NOTE | 2019-10-27 01:50 | NUR ---
Noted HR decreased. Pt pulseless. Code Sesar called and CPR started. See code sheet.
--- NOTE | 2019-10-27 02:15 | NUR ---
Pronounced by Dr. Shirley.
--- NOTE | 2019-10-27 03:35 | NUR ---
Denied by [facility].
--- NOTE | 2019-10-27 03:46 | NUR ---
Released by [facility] office.
--- NOTE | 2019-10-27 04:00 | NUR ---
Spoke with Christina Martínez in [place].
--- NOTE | 2019-10-27 08:17 | NUR ---
Compliance Project Manager arrived an met Daughter Moon and Friend Joy at bedside. There is heavy grief at the of her mother and anger related to situations around he the . The patients son less than 14 days ago and this is exacerbating the grief of the family. The wire drawing setter affirmed their grief, raised awareness to the need for a grieving community. The wire drawing setter blessed the situation with reference to "[employer] man [employer] [place]" Ther is understanding around the necessity to engage gief and not to deny or ignore ones own grief. Family met the daytime sample room supervisor levy as well and was greeted and made aware of future informatio and support.
--- NOTE | 2019-10-28 00:03 | Discharge Summary ---
DATE OF : 10/27/2019 TIME OF : 2:16 a.m. FINAL DIAGNOSES: 1. Cardiopulmonary arrest/PA arrest. 2. Severe septic shock with multiorgan failure. 3. Respiratory failure, requiring mechanical ventilation. 4. End-stage renal disease, on hemodialysis. 5. Pancytopenia, concerning for underlying disseminated intravascular coagulation. 6. Hypotension, requiring IV pressors. 7. Type 2 diabetes with underlying hypoglycemia. 8. Healthcare-associated pneumonia. 9. Bacteremia with gram-negative rods, septic shock. 10. Severe lactic acidosis. CONSULTANTS: Pulmonary Critical Care, Hematology, Infectious Disease, Nephrology. HOSPITAL COURSE: This is a 59-year-old female with multiple comorbidities. Of note, history of ESRD on dialysis, history of cerebrovascular accident with residual weakness with hemiparesis, hypertension, type 2 diabetes, who was at the [facility], found to be hypothermic and found to be hypoglycemic and sent to [facility] for further management and care. While here, the patient was found to be in severe septic shock and severe lactic acidosis. She was found to be hypothermic and hypoglycemic. The patient was immediately intubated, placed on a mechanical ventilator and started on broad-spectrum IV antibiotics and perrin cultures. Pulmonary Critical Care was consulted. The patient was started on IV pressors due to severe hypotension. She maintained on broad-spectrum IV antibiotics while here in the hospital stay. Imaging studies were concerning for underlying pneumonia that was treated for healthcare-associated pneumonia. Her blood cultures were found to be positive for underlying bacteremia with gram-negative rods. Infectious Disease was consulted. The patient was found to have pancytopenia as well as leukopenia prompting Hematology consultation. The patient continued to decompensate throughout the hospital course with severe lactic acidosis. Nephrology was consulted as well. The patient continued to have multiorgan failure with severe septic shock and lactic acidosis. I had long conversations with the patient's daughter at bedside and discussed with her overall mother's prognosis is significantly poor and that she is facing severe septic shock with multiorgan failure and lactic acidosis. Despite having significant amount of conversations with the daughter, she continued to want her mom continued to be full code and did not want her mom to be DNR status. I discussed with her that her mom is severely cachectic and severely malnourished and that chest compressions will likely lead to rib fractures and her overall prognosis was significantly poor. This was reiterated to the patient's daughter, mother, Pulmonary Critical Care physician. Despite that, the daughter wanted to continue with full code and aggressive treatment. The patient then went into PA arrest approximately around 1:51 a.m. on 08/26/2020, in which CPR was initiated by the ER physician. The patient continued to have CPR with chest compression and several rounds of epinephrine as well as full resuscitation as per daughter's wishes. At approximately 2:16 a.m., the daughter presented to the room and told the ER physician to withdraw care. The patient then was pronounced at 2:16 a.m. as per records documented. condolences were given to the patient's daughter at bedside. Please read full details of code sheet in the records. DISPOSITION: To home. CONSULTANTS INVOLVED: ID, Hematology, Nephrology, Pulmonary Critical Care. MD PEGGY Barton/ALEJANDRINA /[id number]
== END 2019-10-27 02:15 | disposition expired | DRG 871 ==
LOC: ER 02:47 → ERHOLD 06:53 → ICU 07:25
PROVIDERS: ADMIT Internal Medicine; ATTEND Internal Medicine
PROC: 0BH18EZ Insertion of Endotracheal Airway into Trachea, Via Natural or Artificial Opening Endoscopic (ICD-10-PCS; principal; 2019-10-26)
PROC: 5A1935Z Respiratory Ventilation, Less than 24 Consecutive Hours (ICD-10-PCS; 2019-10-26)
PROC: 02HV33Z Insertion of Infusion Device into Superior Vena Cava, Percutaneous Approach (ICD-10-PCS; 2019-10-26)
PROC: 3E043XZ Introduction of Vasopressor into Central Vein, Percutaneous Approach (ICD-10-PCS; 2019-10-26)
PROC: 5A12012 Performance of Cardiac Output, Single, Manual (ICD-10-PCS; 2019-10-27)
DX: A41.50 Gram-negative sepsis, unspecified (principal); R65.21 Severe sepsis with septic shock; J96.01 Acute respiratory failure with hypoxia; N18.6 End stage renal disease; J18.9 Pneumonia, unspecified organism; G93.41 Metabolic encephalopathy; D65 Disseminated intravascular coagulation [defibrination syndrome]; E44.0 Moderate protein-calorie malnutrition; I12.0 Hypertensive chronic kidney disease with stage 5 chronic kidney disease or end stage renal disease; I69.351 Hemiplegia and hemiparesis following cerebral infarction affecting right dominant side; D61.818 Other pancytopenia; R64 Cachexia; E87.2 Acidosis; E11.649 Type 2 diabetes mellitus with hypoglycemia without coma; E11.22 Type 2 diabetes mellitus with diabetic chronic kidney disease; I69.320 Aphasia following cerebral infarction; T68.XXXA Hypothermia, initial encounter; I46.9 Cardiac arrest, cause unspecified; Z66 Do not resuscitate; E78.5 Hyperlipidemia, unspecified; N25.0 Renal osteodystrophy; F32.9 Major depressive disorder, single episode, unspecified; Y95 Nosocomial condition; Z99.2 Dependence on renal dialysis; Z74.01 Bed confinement status; Z88.6 Allergy status to analgesic agent; Z88.5 Allergy status to narcotic agent
CPT/HCPCS: 36415; 36600; 71045; 71250; 74018; 80048; 80076; 82550; 82553; 82805; 82948; 83605; 83880; 84484; 85025; 85610; 85730; 87040; 87070; 87071; 87186; 87205; 92950; 93005; 94002; 99285; J0456; J1720; J2060; J2185; J3370; J7030; J7040; J7050; J7070; J7799